=== PATIENT | male | born 1955 | race Caucasian/White ===

== ENCOUNTER 2016-12-08 21:16 | Emergency (ER) | payer OTHER, BC ==
--- NOTE | 2016-12-08 21:28 | PDOC ---
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 Patient is compliant with his pain management doctors and other doctors orders and recommendations. However patient does come in approximately once a month for migraine headaches and exacerbation of his neck and shoulder pain. Patient said the pain is typical. Patient denies any fevers or chills patient denies any nausea vomiting. PAST MEDICAL HISTORY: As per history of present illness PAST SURGICAL HISTORY: no significant history FAMILY HISTORY: no pertinant history SOCIAL HISTORY: Pt lives with family and is disabled MEDICATIONS: reviewed ALLERGIES: As per nursing notes Review of Systems General: No fevers or chills, no weakness, no weight loss HEENT: No change in vision. No sore throat,. No ear pain CardioVascular: No chest pain or shortness of breath Respiratory:No cough, or wheezing. Gastrointestinal: no nausea, vomitting, diarrhea or constipation, No rectal bleeding Genitourinary: No dysuria, hematuria, or frequency Musculoskeletal: Chronic neck, back pain Neurologic: + headache, no vertigo, dizziness or loss of consciousness Psychiatric: nor depression Skin: No rashes or easy bruising Endocrine: no increased thirst or abnormal weight change Allergic: no skin or latex allergy All other systems reviewed and normal Exam: General: Well-nourished well-developed individual, no acute distress HEENT: Throat: Normal, tonsils normal, no erythema or exudate Neck: Supple, no meningeal signs, no lymphadenopathy Eyes::Pupils equal reactive and round, extraocular motion intact Neck and back: pain and spasm on palpation of neck Extremities: Warm, dry, no cyanosis, clubbing, or edema Skin: No rashes Neuro: Alert and oriented x3, nonfocal exam, grossly intact, normal gait Psych: Normal mood and affect Assessment and plan: This is a 61-year-old male with chronic migraines was given Dilaudid in the emergency room with improvement of his symptoms. Patient was discharged home with his who drove him home. Patient will follow-up with his doctors. <Yury Sidhu I - Last Filed: 12/08/16 22:22> - General Chief Complaint: Pain, Acute Stated Complaint: MIGRAINE/SHOULDER PAIN Time Seen by Provider: 12/08/16 21:26 Past History <Thiago Sandoval - Last Filed: 12/08/16 21:34> - Past Medical History Cardiac Disorders: Yes ([place]) Diabetes: Yes GI Disorders: Yes (REFLUX) Hypercholesterolemia: Yes Suicide Attempt (Hx): No - Surgical History Cardiac Surgery: Yes (STENTS X4) Cholecystectomy: Yes - Immunization History Td Vaccination: Yes TDAP Vaccination: Yes Immunization Up to Date: No - Psycho/Social/Smoking Cessation Hx Anxiety: No Suicidal Ideation: No Smoking Status: Yes Smoking History: Current every day smoker Years of Tobacco Use: 30 Have you smoked in the past 12 months: Yes Number of Cigarettes Smoked Daily: 10 Cigars Per Day: 0 'Breaking Loose' booklet given: 09/20/16 Hx Alcohol Use: Yes (SOCIAL) Drug/Substance Use Hx: No Substance Use Type: None Hx Substance Use Treatment: No <Yury Sidhu I - Last Filed: 12/08/16 22:22> - Past Medical History Allergies/Adverse Reactions: Allergies Allergy/AdvReac Type Severity Reaction Status Date / Time prochlorperazine maleate AdvReac Intermediate Rash Verified 09/20/16 22:25 [From Compazine] sumatriptan [From Imitrex] AdvReac Mild Rash Verified 09/20/16 22:25 sumatriptan succinate AdvReac Mild Rash Verified 09/20/16 22:25 [From Imitrex] Home Medications: Ambulatory Orders Aspirin [Aspirin EC] 325 mg PO DAILY 12/29/13 Famotidine [Pepcid -] 20 mg PO HS 12/29/13 Fenofibrate [Fenofibrate -] 160 mg PO DAILY 12/29/13 Gabapentin 400 mg PO 5XD 12/29/13 Metoprolol Tartrate [Lopressor -] 50 mg PO BID 12/29/13 Oxybutynin Chloride 5 mg PO DAILY 12/29/13 Oxycodone HCl/Acetaminophen [Percocet 7.5-500 mg Tablet] 1 - 2 tab PO Q6H Pantoprazole Sodium 40 mg PO DAILY 12/29/13 Rosuvastatin Calcium [Crestor] 40 mg PO HS 12/29/13 Silodosin [Rapaflo] 8 mg PO DAILY 12/29/13 Ranolazine [Ranexa] 1,000 mg PO BID 06/28/14 Metformin HCl [Glucophage] 1,000 mg PO BID 09/18/15 Hyoscyamine Sulfate [Hyoscyamine] 0.125 mg SL BID 11/21/15 Aspirin/Acetaminophen/Caffeine [Excedrin Migraine Caplet] 2 each PO BID Sucralfate Oral Suspension [Carafate *Oral Susp*] 1 gm PO TID 06/26/16 Amitriptyline HCl [Elavil -] 20 mg PO DAILY 12/08/16 *DC/Admit/Observation/Transfer - Attestations Scribe Attestion: 12/08/16 21:35 Documentation prepared by Thiago Sandoval, acting as registered medical assistant for Yury Sidhu MD. <Thiago Sandoval - Last Filed: 12/08/16 21:34> - Discharge Dispostion Admit: No <Yury Sidhu I - Last Filed: 12/08/16 22:22> Diagnosis at time of Disposition: Migraine, Neck pain, musculoskeletal - Discharge Dispostion Disposition: HOME Condition at time of disposition: Stable - Referrals Referrals: Sree Briones MD [Primary Care Provider] - - Patient Instructions Additional Instructions: Return to the emergency department immediately with ANY new, persistent or worsening symptoms. Continue any medications as previously prescribed by your physician. You should follow up with your primary doctor as soon as possible regarding today's emergency department visit. . Please make sure your doctor reviews the results of your emergency evaluation. Thank you for coming to the Emergency Department today for your care. It was a pleasure to see you today. Please note that your evaluation is INCOMPLETE until you follow-up with your doctor.
[2016-12-08] MEDS ORDERED: HYDROmorphone HCL CARPU-JECT 1 MG/1 ML DISP.SYRIN IM ONE (21:29)
[2016-12-08] MEDS ORDERED: HYDROmorphone HCL CARPU-JECT 2 MG/1 ML DISP.SYRIN ONE ×2 (21:30→22:16)
[2016-12-08 21:51] VITALS: BP 174/82; PULSE 76; TEMP 97.8; BMI 41.0
[2016-12-08] MEDS ORDERED: HYDROmorphone HCL CARPU-JECT 1 MG/1 ML DISP.SYRIN IVPUSH ONE (22:17)
== END 2016-12-08 22:35 | disposition home or self-care (01) ==
LOC: FER 21:16
PROC: 3E0233Z Introduction of Anti-inflammatory into Muscle, Percutaneous Approach (ICD-10-PCS; principal; 2016-12-08)
PROC: 3E033GC Introduction of Other Therapeutic Substance into Peripheral Vein, Percutaneous Approach (ICD-10-PCS; 2016-12-08)
PROC: 3E033NZ Introduction of Analgesics, Hypnotics, Sedatives into Peripheral Vein, Percutaneous Approach (ICD-10-PCS; 2016-12-08)
DX: G43.909 Migraine, unspecified, not intractable, without status migrainosus (principal); M54.2 Cervicalgia; M79.1 Myalgia; Z79.82 Long term (current) use of aspirin; Z79.01 Long term (current) use of anticoagulants; I25.2 Old myocardial infarction; K21.9 Gastro-esophageal reflux disease without esophagitis; Z95.5 Presence of coronary angioplasty implant and graft; F17.210 Nicotine dependence, cigarettes, uncomplicated; E78.00 Pure hypercholesterolemia, unspecified
CPT/HCPCS: 99282-25

== ENCOUNTER 2017-01-07 20:26 | Emergency (ER) | payer OTHER, BC ==
--- NOTE | 2017-01-07 20:30 | PDOC ---
History of Present Illness - General Chief Complaint: Pain, Acute Stated Complaint: PAIN-FALL Time Seen by Provider: 01/07/17 20:29 History Source: Patient Exam Limitations: No Limitations - History of Present Illness Initial Comments: 01/07/17 21:03 This is a 61-year-old male who is well-known to me secondary to numerous visits to the emergency room for treatment and management of his Q exacerbation of his chronic neck pain and headaches. 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 Patient is followed by a pain specialist for which his pain is normally well treated and managed but he does come in for exacerbation of his migraines and neck pain from time to time. Patient said he fell approximately one week ago injured his left ribs but they are improved and he is experiencing also some increase in muscle spasms and pain on the right flank and back area. PAST MEDICAL HISTORY: no significant history PAST SURGICAL HISTORY: no significant history FAMILY HISTORY: no pertinant history SOCIAL HISTORY: Pt lives with family and is employed. MEDICATIONS: reviewed ALLERGIES: As per nursing notes Review of Systems General: No fevers or chills, no weakness, no weight loss HEENT: No change in vision. No sore throat,. No ear pain CardioVascular: No chest pain or shortness of breath Respiratory:No cough, or wheezing. Gastrointestinal: no nausea, vomitting, diarrhea or constipation, No rectal bleeding Genitourinary: No dysuria, hematuria, or frequency Musculoskeletal: Neck and back pain as per history of present illness Neurologic: Migraine headache as per history of present illness vertigo, dizziness or loss of consciousness Psychiatric: nor depression Skin: No rashes or easy bruising Endocrine: no increased thirst or abnormal weight change Allergic: no skin or latex allergy All other systems reviewed and normal GENERAL: The patient is awake, alert, and fully oriented, in moderate distress HEAD: Normal with no signs of trauma. Neck: tenderness and spasm of lateral neck muscles and upper shoulder muscles. EYES: Pupils equal, round and reactive to light, extraocular movements intact, sclera anicteric, conjunctiva clear. EXTREMITIES: Normal range of motion, no edema. NEUROLOGICAL: Normal speech,antalgic gait PSYCH: Normal mood, normal affect. SKIN: Warm, Dry, normal turgor, no rashes or lesions noted. Past History - Past Medical History Allergies/Adverse Reactions: Allergies Allergy/AdvReac Type Severity Reaction Status Date / Time prochlorperazine maleate AdvReac Intermediate Rash Verified 09/20/16 22:25 [From Compazine] sumatriptan [From Imitrex] AdvReac Mild Rash Verified 09/20/16 22:25 sumatriptan succinate AdvReac Mild Rash Verified 09/20/16 22:25 [From Imitrex] Home Medications: Ambulatory Orders Aspirin [Aspirin EC] 325 mg PO DAILY 12/29/13 Famotidine [Pepcid -] 20 mg PO HS 12/29/13 Fenofibrate [Fenofibrate -] 160 mg PO DAILY 12/29/13 Gabapentin 400 mg PO 5XD 12/29/13 Metoprolol Tartrate [Lopressor -] 50 mg PO BID 12/29/13 Oxybutynin Chloride 5 mg PO DAILY 12/29/13 Oxycodone HCl/Acetaminophen [Percocet 7.5-500 mg Tablet] 1 - 2 tab PO Q6H Pantoprazole Sodium 40 mg PO DAILY 12/29/13 Rosuvastatin Calcium [Crestor] 40 mg PO HS 12/29/13 Silodosin [Rapaflo] 8 mg PO DAILY 12/29/13 Ranolazine [Ranexa] 1,000 mg PO BID 06/28/14 Metformin HCl [Glucophage] 1,000 mg PO BID 09/18/15 Hyoscyamine Sulfate [Hyoscyamine] 0.125 mg SL BID 11/21/15 Aspirin/Acetaminophen/Caffeine [Excedrin Migraine Caplet] 2 each PO BID Sucralfate Oral Suspension [Carafate *Oral Susp*] 1 gm PO TID 06/26/16 Amitriptyline HCl [Elavil -] 20 mg PO DAILY 12/08/16 Cardiac Disorders: Yes ([place]) Diabetes: Yes GI Disorders: Yes (REFLUX) Hypercholesterolemia: Yes Suicide Attempt (Hx): No - Surgical History Cardiac Surgery: Yes (STENTS X4) Cholecystectomy: Yes - Immunization History Td Vaccination: Yes TDAP Vaccination: Yes Immunization Up to Date: No - Psycho/Social/Smoking Cessation Hx Anxiety: No Suicidal Ideation: No Smoking Status: Yes Smoking History: Current every day smoker Years of Tobacco Use: 30 Have you smoked in the past 12 months: Yes Number of Cigarettes Smoked Daily: 10 Cigars Per Day: 0 'Breaking Loose' booklet given: 09/20/16 Hx Alcohol Use: Yes (SOCIAL) Drug/Substance Use Hx: No Substance Use Type: None Hx Substance Use Treatment: No *DC/Admit/Observation/Transfer Diagnosis at time of Disposition: Migraine, Neck pain, musculoskeletal - Discharge Dispostion Disposition: HOME Condition at time of disposition: Stable Admit: No - Patient Instructions Additional Instructions: Continue all your medications as prescribed. Return to the emergency department immediately with ANY new, persistent or worsening symptoms. Continue any medications as previously prescribed by your physician. You should follow up with your primary doctor as soon as possible regarding today's emergency department visit. . Please make sure your doctor reviews the results of your emergency evaluation. Thank you for coming to the Emergency Department today for your care. It was a pleasure to see you today. Please note that your evaluation is INCOMPLETE until you follow-up with your doctor.
[2017-01-07 20:36] VITALS: BP 155/80; PULSE 74; TEMP 97.8; BMI 41.0
[2017-01-07] MEDS ORDERED: HYDROmorphone HCL CARPU-JECT 1 MG/1 ML DISP.SYRIN IVPUSH ONE (21:01)
[2017-01-07] MEDS ORDERED: HYDROmorphone HCL CARPU-JECT 2 MG/1 ML DISP.SYRIN ONE ×2 (21:02→22:00)
[2017-01-07] MEDS ORDERED: HYDROmorphone HCL CARPU-JECT 1 MG/1 ML DISP.SYRIN IM ONE (21:59)
== END 2017-01-07 22:24 | disposition home or self-care (01) ==
LOC: FER 20:26
PROC: 3E033GC Introduction of Other Therapeutic Substance into Peripheral Vein, Percutaneous Approach (ICD-10-PCS; principal; 2017-01-07)
PROC: 3E033NZ Introduction of Analgesics, Hypnotics, Sedatives into Peripheral Vein, Percutaneous Approach (ICD-10-PCS; 2017-01-07)
PROC: 3E023NZ Introduction of Analgesics, Hypnotics, Sedatives into Muscle, Percutaneous Approach (ICD-10-PCS; 2017-01-07)
DX: M54.2 Cervicalgia (principal); M79.1 Myalgia; G43.909 Migraine, unspecified, not intractable, without status migrainosus; F17.210 Nicotine dependence, cigarettes, uncomplicated; Z95.5 Presence of coronary angioplasty implant and graft; E11.9 Type 2 diabetes mellitus without complications; K21.9 Gastro-esophageal reflux disease without esophagitis; I25.2 Old myocardial infarction
CPT/HCPCS: 96372; 96374; 96375; 99282-25

== ENCOUNTER 2017-02-21 01:17 | Emergency (ER) | payer OTHER, BC ==
--- NOTE | 2017-02-21 01:21 | PDOC ---
History of Present Illness - General Chief Complaint: Migraine Headache Stated Complaint: MIGRAINE Time Seen by Provider: 02/21/17 01:20 History Source: Patient Exam Limitations: No Limitations - History of Present Illness Initial Comments: 02/21/17 01:32 This is a 61-year-old male who comes in complaining of migraine headache. Patient is well-known to me and has long history of migraine headaches. Patient otherwise has a long history of chronic pain issues secondary to his work disability. Patient said migraine is typical of his migraines. He denies any fevers or chills. He denies any change in his vision or neurological complaints. Headache is circumferential and throbbing in nature PAST MEDICAL HISTORY: As per history of present illness PAST SURGICAL HISTORY: no significant history FAMILY HISTORY: no pertinant history SOCIAL HISTORY: Pt lives with family and is on permanent disability MEDICATIONS: reviewed ALLERGIES: As per nursing notes Review of Systems General: No fevers or chills, no weakness, no weight loss HEENT: No change in vision. No sore throat,. No ear pain, migraine headache CardioVascular: No chest pain or shortness of breath Respiratory:No cough, or wheezing. Gastrointestinal: no nausea, vomitting, diarrhea or constipation, No rectal bleeding Genitourinary: No dysuria, hematuria, or frequency Musculoskeletal: No joint or muscle pain or swelling Neurologic: + Migraine headache, vertigo, dizziness or loss of consciousness Psychiatric: nor depression Skin: No rashes or easy bruising Endocrine: no increased thirst or abnormal weight change Allergic: no skin or latex allergy All other systems reviewed and normal GENERAL: The patient is awake, alert, and fully oriented, in no acute distress. HEAD: Normal with no signs of trauma. EYES: Pupils equal, round and reactive to light, extraocular movements intact, sclera anicteric, conjunctiva clear. EXTREMITIES: Normal range of motion, no edema. NEUROLOGICAL: Normal speech, normal gait. PSYCH: Normal mood, normal affect. SKIN: Warm, Dry, normal turgor, no rashes or lesions noted. Assessment and plan: This is a 61-year-old male with migraine headache who is well-known to me and comes in intermittently for pain medication to manage his migraine headaches. Patient given Dilaudid and Benadryl with improvement in his symptoms and discharged home. Past History - Past Medical History Allergies/Adverse Reactions: Allergies Allergy/AdvReac Type Severity Reaction Status Date / Time prochlorperazine maleate AdvReac Intermediate Rash Verified 02/21/17 01:20 [From Compazine] sumatriptan [From Imitrex] AdvReac Mild Rash Verified 02/21/17 01:20 sumatriptan succinate AdvReac Mild Rash Verified 02/21/17 01:20 [From Imitrex] Home Medications: Ambulatory Orders Aspirin [Aspirin EC] 325 mg PO DAILY 12/29/13 Famotidine [Pepcid -] 20 mg PO HS 12/29/13 Fenofibrate [Fenofibrate -] 160 mg PO DAILY 12/29/13 Gabapentin 400 mg PO 5XD 12/29/13 Metoprolol Tartrate [Lopressor -] 50 mg PO BID 12/29/13 Oxybutynin Chloride 5 mg PO DAILY 12/29/13 Oxycodone HCl/Acetaminophen [Percocet 7.5-500 mg Tablet] 1 - 2 tab PO Q6H Pantoprazole Sodium 40 mg PO DAILY 12/29/13 Rosuvastatin Calcium [Crestor] 40 mg PO HS 12/29/13 Silodosin [Rapaflo] 8 mg PO DAILY 12/29/13 Ranolazine [Ranexa] 1,000 mg PO BID 06/28/14 Metformin HCl [Glucophage] 1,000 mg PO BID 09/18/15 Hyoscyamine Sulfate [Hyoscyamine] 0.125 mg SL BID 11/21/15 Aspirin/Acetaminophen/Caffeine [Excedrin Migraine Caplet] 2 each PO BID Sucralfate Oral Suspension [Carafate *Oral Susp*] 1 gm PO TID 06/26/16 Amitriptyline HCl [Elavil -] 20 mg PO DAILY 12/08/16 Cardiac Disorders: Yes ([place]) Diabetes: Yes GI Disorders: Yes (REFLUX) Hypercholesterolemia: Yes Suicide Attempt (Hx): No - Surgical History Cardiac Surgery: Yes (STENTS X4) Cholecystectomy: Yes - Immunization History Td Vaccination: Yes TDAP Vaccination: Yes Immunization Up to Date: No - Psycho/Social/Smoking Cessation Hx Anxiety: No Suicidal Ideation: No Smoking Status: Yes Smoking History: Current every day smoker Years of Tobacco Use: 30 Have you smoked in the past 12 months: Yes Number of Cigarettes Smoked Daily: 10 Cigars Per Day: 0 'Breaking Loose' booklet given: 09/20/16 Hx Alcohol Use: Yes (SOCIAL) Drug/Substance Use Hx: No Substance Use Type: None Hx Substance Use Treatment: No *DC/Admit/Observation/Transfer Diagnosis at time of Disposition: Migraine - Discharge Dispostion Disposition: HOME Condition at time of disposition: Stable Admit: No - Patient Instructions Additional Instructions: Continue all your medications as prescribed Return to the emergency department immediately with ANY new, persistent or worsening symptoms. Continue any medications as previously prescribed by your physician. You should follow up with your primary doctor as soon as possible regarding today's emergency department visit. . Please make sure your doctor reviews the results of your emergency evaluation. Thank you for coming to the Emergency Department today for your care. It was a pleasure to see you today. Please note that your evaluation is INCOMPLETE until you follow-up with your doctor.
[2017-02-21] MEDS ORDERED: HYDROmorphone HCL CARPU-JECT 1 MG/1 ML DISP.SYRIN IM ONE ×2 (01:22→01:39)
[2017-02-21 01:26] VITALS: TEMP 97.6; BMI 40.2
[2017-02-21] MEDS ORDERED: HYDROmorphone HCL CARPU-JECT 2 MG/1 ML DISP.SYRIN ONE ×2 (01:27→01:54)
[2017-02-21 02:20] VITALS: BP 114/58; PULSE 74
== END 2017-02-21 02:27 | disposition home or self-care (01) ==
LOC: FER 01:17
PROC: 3E023GC Introduction of Other Therapeutic Substance into Muscle, Percutaneous Approach (ICD-10-PCS; principal; 2017-02-21)
PROC: 3E023NZ Introduction of Analgesics, Hypnotics, Sedatives into Muscle, Percutaneous Approach (ICD-10-PCS; 2017-02-21)
DX: G43.909 Migraine, unspecified, not intractable, without status migrainosus (principal); E11.9 Type 2 diabetes mellitus without complications; K21.9 Gastro-esophageal reflux disease without esophagitis; E78.00 Pure hypercholesterolemia, unspecified; Z95.5 Presence of coronary angioplasty implant and graft; F17.210 Nicotine dependence, cigarettes, uncomplicated; I25.2 Old myocardial infarction; Z79.82 Long term (current) use of aspirin
CPT/HCPCS: 96372; 99281-25

== ENCOUNTER 2017-04-07 05:50 | Emergency (ER) | payer OTHER, BC ==
[2017-04-07 06:04] VITALS: BP 129/83; PULSE 84; TEMP 97.9; BMI 40.2
[2017-04-07] MEDS ORDERED: HYDROmorphone HCL CARPU-JECT 1 MG/1 ML DISP.SYRIN IM ONE ×2 (06:06→06:42)
[2017-04-07] MEDS ORDERED: HYDROmorphone HCL CARPU-JECT 2 MG/1 ML DISP.SYRIN ONE ×2 (06:06→06:45)
--- NOTE | 2017-04-07 06:12 | PDOC ---
History of Present Illness - General Chief Complaint: Pain, Acute Stated Complaint: LT NECK PAIN/MIGRAINE Time Seen by Provider: 04/07/17 06:00 History Source: Patient Exam Limitations: No Limitations - History of Present Illness Initial Comments: 04/07/17 06:05 This is a 61-year-old male who comes in complaining of headache and pain in his neck and shoulder. 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 Patient is on full disability. His typical head and neck pain that he comes in for from time to time. Patient is otherwise compliant with his treatment and medication regime but occasionally does have exacerbation of his chronic pain. PAST MEDICAL HISTORY: Disability as per history of present illness PAST SURGICAL HISTORY: no significant history FAMILY HISTORY: no pertinant history SOCIAL HISTORY: Pt lives with family and is employed. MEDICATIONS: reviewed ALLERGIES: As per nursing notes Review of Systems General: No fevers or chills, no weakness, no weight loss HEENT: No change in vision. No sore throat,. No ear pain CardioVascular: No chest pain or shortness of breath Respiratory:No cough, or wheezing. Gastrointestinal: no nausea, vomitting, diarrhea or constipation, No rectal bleeding Genitourinary: No dysuria, hematuria, or frequency Musculoskeletal: Head and neck pain as per history of present illness Neurologic: No headache, vertigo, dizziness or loss of consciousness Psychiatric: nor depression Skin: No rashes or easy bruising Endocrine: no increased thirst or abnormal weight change Allergic: no skin or latex allergy All other systems reviewed and normal GENERAL: The patient is awake, alert, and fully oriented, in no acute distress. HEAD: Normal with no signs of trauma. There is tenderness in spasm on palpation of the neck neurovascular is intact EYES: Pupils equal, round and reactive to light, extraocular movements intact, sclera anicteric, conjunctiva clear. EXTREMITIES: Normal range of motion, no edema. NEUROLOGICAL: Normal speech, normal gait. PSYCH: Normal mood, normal affect. SKIN: Warm, Dry, normal turgor, no rashes or lesions noted. Past History - Past Medical History Allergies/Adverse Reactions: Allergies Allergy/AdvReac Type Severity Reaction Status Date / Time prochlorperazine maleate AdvReac Intermediate Rash Verified 02/21/17 01:20 [From Compazine] sumatriptan [From Imitrex] AdvReac Mild Rash Verified 02/21/17 01:20 sumatriptan succinate AdvReac Mild Rash Verified 02/21/17 01:20 [From Imitrex] Home Medications: Ambulatory Orders Aspirin [Aspirin EC] 325 mg PO DAILY 12/29/13 Famotidine [Pepcid -] 20 mg PO HS 12/29/13 Fenofibrate [Fenofibrate -] 160 mg PO DAILY 12/29/13 Gabapentin 400 mg PO 5XD 12/29/13 Metoprolol Tartrate [Lopressor -] 50 mg PO BID 12/29/13 Oxybutynin Chloride 5 mg PO DAILY 12/29/13 Oxycodone HCl/Acetaminophen [Percocet 7.5-500 mg Tablet] 1 - 2 tab PO Q6H Pantoprazole Sodium 40 mg PO DAILY 12/29/13 Rosuvastatin Calcium [Crestor] 40 mg PO HS 12/29/13 Silodosin [Rapaflo] 8 mg PO DAILY 12/29/13 Ranolazine [Ranexa] 1,000 mg PO BID 06/28/14 Metformin HCl [Glucophage] 1,000 mg PO BID 09/18/15 Hyoscyamine Sulfate [Hyoscyamine] 0.125 mg SL BID 11/21/15 Aspirin/Acetaminophen/Caffeine [Excedrin Migraine Caplet] 2 each PO BID Sucralfate Oral Suspension [Carafate *Oral Susp*] 1 gm PO TID 06/26/16 Amitriptyline HCl [Elavil -] 20 mg PO DAILY 12/08/16 Cardiac Disorders: Yes ([place]) Diabetes: Yes GI Disorders: Yes (REFLUX) Hypercholesterolemia: Yes Suicide Attempt (Hx): No - Surgical History Cardiac Surgery: Yes (STENTS X4) Cholecystectomy: Yes - Immunization History Td Vaccination: Yes TDAP Vaccination: Yes Immunization Up to Date: No - Psycho/Social/Smoking Cessation Hx Anxiety: No Suicidal Ideation: No Smoking Status: Yes Smoking History: Current every day smoker Years of Tobacco Use: 30 Have you smoked in the past 12 months: Yes Number of Cigarettes Smoked Daily: 10 Cigars Per Day: 0 Information on smoking cessation initiated: Yes 'Breaking Loose' booklet given: 09/20/16 Hx Alcohol Use: Yes (SOCIAL) Drug/Substance Use Hx: No Substance Use Type: None Hx Substance Use Treatment: No *Physical Exam - Vital Signs Last Vital Signs Temp Pulse Resp BP Pulse Ox 97.9 F 84 16 129/83 100 04/07/17 06:02 04/07/17 06:02 04/07/17 06:02 04/07/17 06:02 04/07/17 06:02 *DC/Admit/Observation/Transfer Diagnosis at time of Disposition: Neck pain, musculoskeletal - Discharge Dispostion Disposition: HOME Condition at time of disposition: Stable Admit: No - Patient Instructions Additional Instructions: Continue to take all your medications as prescribed and follow up with your doctor. Return to the emergency department immediately with ANY new, persistent or worsening symptoms. Continue any medications as previously prescribed by your physician. You should follow up with your primary doctor as soon as possible regarding today's emergency department visit. . Please make sure your doctor reviews the results of your emergency evaluation. Thank you for coming to the Emergency Department today for your care. It was a pleasure to see you today. Please note that your evaluation is INCOMPLETE until you follow-up with your doctor.
== END 2017-04-07 07:32 | disposition home or self-care (01) ==
LOC: FER 05:50
PROC: 3E0233Z Introduction of Anti-inflammatory into Muscle, Percutaneous Approach (ICD-10-PCS; principal; 2017-04-07)
PROC: 3E023GC Introduction of Other Therapeutic Substance into Muscle, Percutaneous Approach (ICD-10-PCS; 2017-04-07)
DX: M54.2 Cervicalgia (principal); M79.1 Myalgia; F17.210 Nicotine dependence, cigarettes, uncomplicated; K21.9 Gastro-esophageal reflux disease without esophagitis; E11.9 Type 2 diabetes mellitus without complications; I25.2 Old myocardial infarction; Z95.5 Presence of coronary angioplasty implant and graft; E78.00 Pure hypercholesterolemia, unspecified
CPT/HCPCS: 99282-25

== ENCOUNTER 2017-06-12 00:06 | Emergency (ER) | payer OTHER, BC ==
[2017-06-12 00:15] VITALS: PULSE 70; TEMP 98.5; BMI 38.2
[2017-06-12] MEDS ORDERED: HYDROmorphone HCL CARPU-JECT 2 MG/1 ML DISP.SYRIN IM ONE ×2 (00:21→01:54)
[2017-06-12] MEDS ORDERED: HYDROmorphone HCL CARPU-JECT 2 MG/1 ML DISP.SYRIN ONE ×3 (00:22→01:55)
--- NOTE | 2017-06-12 00:31 | PDOC ---
History of Present Illness - General Chief Complaint: Pain, Acute Stated Complaint: MIGRAINE, NECK PAIN Time Seen by Provider: 06/12/17 00:10 History Source: Patient Exam Limitations: No Limitations - History of Present Illness Initial Comments: 06/12/17 00:26 61 yo M with h/o HTN DM chronic neck pain from prior injury, chronic back pain followed by DR Briones pain management here wtih exacerbation of his chronic pain. pt very well known to department and his records have been reveiwed. pt states he always has pain but got acutely worse this evening. no new numbness or weakness. does get paresthesia down his left arm and up his left side of his face. no f/c no new trauma . takes mediation at home including narcotics and nuerontin no relief. no relief in past with steroids, allergy to many medications. Past History - Past Medical History Allergies/Adverse Reactions: Allergies Allergy/AdvReac Type Severity Reaction Status Date / Time prochlorperazine maleate AdvReac Intermediate Rash Verified 06/12/17 00:09 [From Compazine] sumatriptan [From Imitrex] AdvReac Mild Rash Verified 06/12/17 00:09 sumatriptan succinate AdvReac Mild Rash Verified 06/12/17 00:09 [From Imitrex] Home Medications: Ambulatory Orders Aspirin [Aspirin EC] 325 mg PO DAILY 12/29/13 Famotidine [Pepcid -] 20 mg PO HS 12/29/13 Fenofibrate [Fenofibrate -] 160 mg PO DAILY 12/29/13 Gabapentin 400 mg PO 5XD 12/29/13 Metoprolol Tartrate [Lopressor -] 50 mg PO BID 12/29/13 Oxybutynin Chloride 5 mg PO DAILY 12/29/13 Oxycodone HCl/Acetaminophen [Percocet 7.5-500 mg Tablet] 1 - 2 tab PO Q6H Pantoprazole Sodium 40 mg PO DAILY 12/29/13 Rosuvastatin Calcium [Crestor] 40 mg PO HS 12/29/13 Silodosin [Rapaflo] 8 mg PO DAILY 12/29/13 Ranolazine [Ranexa] 1,000 mg PO BID 06/28/14 Metformin HCl [Glucophage] 1,000 mg PO BID 09/18/15 Hyoscyamine Sulfate [Hyoscyamine] 0.125 mg SL BID 11/21/15 Aspirin/Acetaminophen/Caffeine [Excedrin Migraine Caplet] 2 each PO BID Sucralfate Oral Suspension [Carafate *Oral Susp*] 1 gm PO TID 06/26/16 Amitriptyline HCl [Elavil -] 20 mg PO DAILY 12/08/16 Cardiac Disorders: Yes ([place]) Diabetes: Yes GI Disorders: Yes ([place]) Hypercholesterolemia: Yes Suicide Attempt (Hx): No - Surgical History Cardiac Surgery: Yes (STENTS X4) Cholecystectomy: Yes - Immunization History Td Vaccination: Yes TDAP Vaccination: Yes Immunization Up to Date: No - Psycho/Social/Smoking Cessation Hx Anxiety: No Suicidal Ideation: No Smoking Status: Yes Smoking History: Current every day smoker Years of Tobacco Use: 30 Have you smoked in the past 12 months: Yes Number of Cigarettes Smoked Daily: 10 Cigars Per Day: 0 Information on smoking cessation initiated: Yes 'Breaking Loose' booklet given: 09/20/16 Hx Alcohol Use: No Drug/Substance Use Hx: No Substance Use Type: None Hx Substance Use Treatment: No Review of Systems - Review of Systems Constitutional: No: Chills, Diaphoresis, Fever HEENTM: No: Eye Pain Respiratory: No: Cough, Orthopnea Cardiac (ROS): No: Chest Pain, Edema, Irregular Heart Rate : No: Burning, Dysuria, Discharge Musculoskeletal: Yes: Back Pain, Neck Pain Integumentary: No: Bruising, Change in Color Neurological: No: Headache, Numbness Hematologic/Lymphatic: No: Anemia, Blood Clots All Other Systems: Reviewed and Negative *Physical Exam - Vital Signs Last Vital Signs Temp Pulse Resp BP Pulse Ox 98.5 F 70 18 158/77 99 06/12/17 00:11 06/12/17 00:11 06/12/17 00:11 06/12/17 00:06/12/17 00:11 - Physical Exam General Appearance: Yes: Nourished, Appropriately Dressed Neck: positive: Trachea midline, Other (paraspinal left latera trapeziaql m spasm and pain to palp.). negative: Tender midline Respiratory/Chest: positive: Lungs Clear, Normal Breath Sounds. negative: Chest Tender Cardiovascular: positive: Regular Rhythm, Regular Rate, S1, S2. negative: Edema , JVD, Murmur Gastrointestinal/Abdominal: positive: Normal Bowel Sounds, Flat, Soft. negative : Tender Musculoskeletal: positive: Normal Inspection. negative: CVA Tenderness Extremity: positive: Normal Capillary Refill, Normal Inspection Integumentary: positive: Normal Color, Dry, Warm Neurologic: positive: dryerman/woman II-XII NML intact, Fully Oriented, Alert, Normal Mood/ Affect, Motor Strength 5/5, Other (bilat upper extremities 5/5 sensation intact. med/ ulnar rad n. intact bilat lower ext 5/5/) Medical Decision Making - Medical Decision Making 06/12/17 00:31 61 yo M with h/o chronic pain, her with exacerbation of his pain, unknon trigger. normal nuerological exam sensation intact. plan pain control, and tiffany dc home with follow up with pain management doctor. *DC/Admit/Observation/Transfer Diagnosis at time of Disposition: Neck pain, musculoskeletal - Discharge Dispostion Disposition: HOME Condition at time of disposition: Improved Admit: No - Patient Instructions Printed Discharge Instructions: DI for Cervical Radiculopathy Additional Instructions: you need to follow up with your primary doctor and your pain management doctor as scheduled. return for worsening symptoms. numbness weakness or any concerns. call tomorrow to schedule followup. you should continue your current pain medication as prescribed by your doctor.
[2017-06-12 02:06] VITALS: BP 135/63
== END 2017-06-12 02:06 | disposition home or self-care (01) ==
LOC: FER 00:06
PROC: 3E023NZ Introduction of Analgesics, Hypnotics, Sedatives into Muscle, Percutaneous Approach (ICD-10-PCS; principal; 2017-06-12)
PROC: 3E023GC Introduction of Other Therapeutic Substance into Muscle, Percutaneous Approach (ICD-10-PCS; 2017-06-12)
DX: M54.12 Radiculopathy, cervical region (principal); M54.9 Dorsalgia, unspecified; G89.29 Other chronic pain; I10 Essential (primary) hypertension; I25.2 Old myocardial infarction; E11.9 Type 2 diabetes mellitus without complications; E78.00 Pure hypercholesterolemia, unspecified; K21.9 Gastro-esophageal reflux disease without esophagitis; R20.2 Paresthesia of skin; F17.210 Nicotine dependence, cigarettes, uncomplicated; Z88.8 Allergy status to other drugs, medicaments and biological substances; Z79.82 Long term (current) use of aspirin; Z79.84 Long term (current) use of oral hypoglycemic drugs; Z95.5 Presence of coronary angioplasty implant and graft
CPT/HCPCS: 99281-25

== ENCOUNTER 2017-07-15 21:06 | Emergency (ER) | payer OTHER, BC ==
[2017-07-15 21:09] VITALS: BP 160/75; PULSE 70; TEMP 98; BMI 26.4
[2017-07-15] MEDS ORDERED: HYDROmorphone HCL CARPU-JECT 2 MG/1 ML DISP.SYRIN IVPUSH ONE (21:37)
--- NOTE | 2017-07-15 21:40 | PDOC ---
History of Present Illness - General History Source: Patient Exam Limitations: No Limitations - History of Present Illness Initial Comments: 07/15/17 22:12 This is a 61-year-old male, with a significant past medical history of HTN and DM, who comes in complaining of headache and left-sided neck pain and shoulder pain. 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 Pt states that the pain shoots up his neck, into his face causing him to develop a headache, and down his left shoulder. He denies having any other symptoms or injuries. <Mayda Patricia - Last Filed: 07/15/17 22:12> <Veena Coley - Last Filed: 07/15/17 23:55> - General Chief Complaint: Chronic pain Stated Complaint: PAIN Past History <Mayda Patricia - Last Filed: 07/15/17 22:12> - Past Medical History Cardiac Disorders: Yes ([place]) Diabetes: Yes GI Disorders: Yes ([place]) Hypercholesterolemia: Yes Suicide Attempt (Hx): No - Surgical History Cardiac Surgery: Yes (STENTS X4) Cholecystectomy: Yes - Immunization History Td Vaccination: Yes TDAP Vaccination: Yes Immunization Up to Date: No - Psycho/Social/Smoking Cessation Hx Anxiety: No Suicidal Ideation: No Smoking Status: Yes Smoking History: Current every day smoker Years of Tobacco Use: 30 Have you smoked in the past 12 months: Yes Number of Cigarettes Smoked Daily: 20 Cigars Per Day: 0 Information on smoking cessation initiated: Yes 'Breaking Loose' booklet given: 07/15/17 Hx Alcohol Use: No Drug/Substance Use Hx: No Substance Use Type: None Hx Substance Use Treatment: No <Veena Coley - Last Filed: 07/15/17 23:55> - Past Medical History Allergies/Adverse Reactions: Allergies Allergy/AdvReac Type Severity Reaction Status Date / Time prochlorperazine maleate AdvReac Intermediate Rash Verified 06/12/17 00:09 [From Compazine] sumatriptan [From Imitrex] AdvReac Mild Rash Verified 06/12/17 00:09 sumatriptan succinate AdvReac Mild Rash Verified 06/12/17 00:09 [From Imitrex] Home Medications: Ambulatory Orders Aspirin [Aspirin EC] 325 mg PO DAILY 12/29/13 Famotidine [Pepcid -] 20 mg PO HS 12/29/13 Fenofibrate [Fenofibrate -] 160 mg PO DAILY 12/29/13 Gabapentin 400 mg PO 5XD 12/29/13 Metoprolol Tartrate [Lopressor -] 50 mg PO BID 12/29/13 Oxybutynin Chloride 5 mg PO DAILY 12/29/13 Oxycodone HCl/Acetaminophen [Percocet 7.5-500 mg Tablet] 1 - 2 tab PO Q6H Pantoprazole Sodium 40 mg PO DAILY 12/29/13 Rosuvastatin Calcium [Crestor] 40 mg PO HS 12/29/13 Silodosin [Rapaflo] 8 mg PO DAILY 12/29/13 Ranolazine [Ranexa] 1,000 mg PO BID 06/28/14 Metformin HCl [Glucophage] 1,000 mg PO BID 09/18/15 Hyoscyamine Sulfate [Hyoscyamine] 0.125 mg SL BID 11/21/15 Aspirin/Acetaminophen/Caffeine [Excedrin Migraine Caplet] 2 each PO BID Sucralfate Oral Suspension [Carafate *Oral Susp*] 1 gm PO TID 06/26/16 Amitriptyline HCl [Elavil -] 10 mg PO BID 12/08/16 Review of Systems - Review of Systems Able to Perform ROS?: Yes Comments:: 07/15/17 22:13 CONSTITUTIONAL: Absent: fever, chills, diaphoresis, generalized weakness, malaise, loss of appetite HEENT: Present: left-sided neck pain, left shoulder pain Absent: rhinorrhea, nasal congestion, throat pain, throat swelling, difficulty swallowing, mouth swelling, ear pain, eye pain, visual Changes CARDIOVASCULAR: Absent: chest pain, syncope, palpitations, irregular heart rate, lightheadedness , peripheral edema RESPIRATORY: Absent: cough, shortness of breath, dyspnea with exertion, orthopnea, wheezing, stridor, hemoptysis GASTROINTESTINAL: Absent: abdominal pain, abdominal distension, nausea, vomiting, diarrhea, constipation, melena, hematochezia GENITOURINARY: Absent: dysuria, frequency, urgency, hesitancy, hematuria, flank pain, genital pain MUSCULOSKELETAL: Absent: arthralgia, joint swelling SKIN: Absent: rash, itching, pallor HEMATOLOGIC/IMMUNOLOGIC: Absent: easy bleeding, easy bruising, lymphadenopathy, frequent infections ENDOCRINE: Absent: unexplained weight gain, unexplained weight loss, heat intolerance, cold intolerance NEUROLOGIC: Absent: headache, focal weakness or paresthesias, dizziness, unsteady gait, seizure, mental status changes, bladder or bowel incontinence PSYCHIATRIC: Absent: anxiety, depression, suicidal or homicidal ideation, hallucinations. <Mayda Patricia - Last Filed: 07/15/17 22:12> *Physical Exam - Vital Signs Last Vital Signs Temp Pulse Resp BP Pulse Ox 98 F 70 16 160/75 100 07/15/17 21:07 07/15/17 21:07 07/15/17 21:07 07/15/17 21:07 07/15/17 21:07 - Physical Exam Comments: 07/15/17 22:16 GENERAL: Well developed, well nourished. Awake and alert. No acute distress. (+)Obese HEENT: Normocephalic, atraumatic. PERRLA, EOMI. No conjunctival pallor. Sclera are non- icteric. Moist mucous membranes. Oropharynx is clear. NECK: Full ROM. No JVD. Carotid pulses 2+ and symmetric, without bruits. No thyromegaly. No lymphadenopathy. CARDIOVASCULAR: Regular rate and rhythm. No murmurs, rubs, or gallops. Distal pulses are 2+ and symmetric. PULMONARY: No evidence of respiratory distress. Lungs clear to auscultation bilaterally. No wheezing, rales or rhonchi. ABDOMINAL: Soft. Non-tender. Non-distended. No rebound or guarding. No organomegaly. Normoactive bowel sounds. MUSCULOSKELETAL Normal range of motion at all joints. No bony deformities or tenderness. No CVA tenderness. EXTREMITIES: No cyanosis. No clubbing. No edema. No calf tenderness. SKIN: Warm and dry. Normal capillary refill. No rashes. No jaundice. NEUROLOGICAL: Alert, awake, appropriate. PSYCHIATRIC: Cooperative. Good eye contact. Appropriate mood and affect. <Mayda Patricia - Last Filed: 07/15/17 22:12> - Vital Signs Last Vital Signs Temp Pulse Resp BP Pulse Ox 98 F 70 16 160/75 100 07/15/17 21:07 07/15/17 21:07 07/15/17 21:07 07/15/17 21:07 07/15/17 21:07 <Veena Coley - Last Filed: 07/15/17 23:55> ED Treatment Course - Medications Given in the ED: ED Medications Discontinued Medications Generic Name Dose Route Start Last Admin Trade Name Héctor PRN Reason Stop Dose Admin Diphenhydramine HCl 50 mg 07/15/17 21:38 07/15/17 21:40 Benadryl Injection - IM 07/15/17 21:39 50 mg ONCE ONE Administration Hydromorphone HCl 6 mg 07/15/17 21:37 07/15/17 21:30 Dilaudid Injection - IVPUSH 07/15/17 21:38 6 mg ONCE ONE Administration <Mayda Patricia - Last Filed: 07/15/17 22:12> Medical Decision Making - Medical Decision Making 07/15/17 23:47 Pt comes with chronic pain and has been getting dilaudid and benadryl here for years. We had a long conversation about addiction and I told the patient that after today I will never treat him with 6mg dilaudid and 0mg benadryl; rather 2mg dilaudid and 25mg benadryl -repeated once at most. Pt injured himself 17 years ago and has had spinal procedures, surgeries; trigger point injections etc. Pt will be referred back to his PMD. Pt's exam is unremarkable and his vitals are normal. BP slight elevation, likely due to withdrawal effect of narcotics, as he has narcotic use regular basis. [employer] program online reveals p[t gets 120tabs of 7.5mg percocets monthly for several months. <Veena Coley - Last Filed: 07/15/17 23:55> *DC/Admit/Observation/Transfer - Attestations Scribe Attestion: 07/15/17 22:17 Documentation prepared by Mayda Patricia, acting as medical staff assistant for Veena Coley MD. <Mayda Patricia - Last Filed: 07/15/17 22:12> - Discharge Dispostion Admit: No <Veena Coley - Last Filed: 07/15/17 23:55> Diagnosis at time of Disposition: Narcotic addiction, Chronic pain - Discharge Dispostion Disposition: HOME Condition at time of disposition: Stable - Patient Instructions Printed Discharge Instructions: DI for Opioid Addiction, DI for Chronic Neck Pain
[2017-07-15] MEDS ORDERED: HYDROmorphone HCL CARPU-JECT 2 MG/1 ML DISP.SYRIN ONE (21:42)
== END 2017-07-15 22:12 | disposition home or self-care (01) ==
LOC: FER 21:06
PROC: 3E023GC Introduction of Other Therapeutic Substance into Muscle, Percutaneous Approach (ICD-10-PCS; principal; 2017-07-15)
PROC: 3E033NZ Introduction of Analgesics, Hypnotics, Sedatives into Peripheral Vein, Percutaneous Approach (ICD-10-PCS; 2017-07-15)
DX: F19.20 Other psychoactive substance dependence, uncomplicated (principal); G89.29 Other chronic pain; F17.210 Nicotine dependence, cigarettes, uncomplicated; Z95.5 Presence of coronary angioplasty implant and graft; E11.9 Type 2 diabetes mellitus without complications; K21.9 Gastro-esophageal reflux disease without esophagitis; E78.00 Pure hypercholesterolemia, unspecified
CPT/HCPCS: 99282-25

== ENCOUNTER 2017-11-26 21:15 | Emergency (ER) | payer BC, OTHER ==
[2017-11-26 21:43] VITALS: TEMP 98.2; BMI 26.2
[2017-11-26] MEDS ORDERED: HYDROmorphone HCL CARPU-JECT 2 MG/1 ML DISP.SYRIN IM ONE ×2 (22:51→23:59)
[2017-11-26] MEDS ORDERED: HYDROmorphone HCL CARPU-JECT 2 MG/1 ML DISP.SYRIN ONE (23:07)
[2017-11-27] MEDS ORDERED: HYDROmorphone HCL CARPU-JECT 2 MG/1 ML DISP.SYRIN ONE (00:03)
--- NOTE | 2017-11-27 00:17 | PDOC ---
History of Present Illness - General Chief Complaint: Migraine Headache Stated Complaint: MIGRAINE & NECK PAIN Time Seen by Provider: 11/26/17 22:09 - History of Present Illness Initial Comments: 12/01/17 08:04 Chief complaint: Headache and neck pain History of present illness: Patient pain management of chronic headaches, neck pain, thought to be musculoskeletal. Maintained at home on Percocet. Periodic breakthroughs requiring emergency room visits. This is his usual pain today, left lateral and posterior neck and left trapezius area, left occiput. Review of systems: No injury or fever/infectious illness. No chest pain, shortness of breath, abdominal pain, nausea, vomiting, diarrhea, visual or focal neurologic symptoms, unsteadiness of gait. Past medical history: Patient has significant obesity, high blood pressure, diabetes, and coronary artery disease Social/family history: Chronic pain as noted above, narcotic dependence. Physical exam: Alert and oriented, mild distress due to head and neck pain, cooperative Afebrile, vital signs normal PERRLA, fundi benign, ENT clear Neck supple without bruit mass or nodes. There is spasm and tenderness of the left sternomastoid muscles and trapezius muscle. Chest clear CV regular without murmur rub or gallop Abdomen benign Skin clear, no rash, adequate turgor and wet mucous membranes Neurological C2 to 12 intact. Strength full and symmetric. No focal sensory or motor deficits. Gait stable and unimpaired Impression: Chronic musculoskeletal pain, with breakthrough. Plan: Analgesics, observation. Pain management as usual. Past History - Past Medical History Allergies/Adverse Reactions: Allergies Allergy/AdvReac Type Severity Reaction Status Date / Time prochlorperazine maleate AdvReac Intermediate Rash Verified 06/12/17 00:09 [From Compazine] sumatriptan [From Imitrex] AdvReac Mild Rash Verified 06/12/17 00:09 sumatriptan succinate AdvReac Mild Rash Verified 06/12/17 00:09 [From Imitrex] Home Medications: Ambulatory Orders Aspirin [Aspirin EC] 325 mg PO DAILY 12/29/13 Famotidine [Pepcid -] 20 mg PO HS 12/29/13 Fenofibrate [Fenofibrate -] 160 mg PO DAILY 12/29/13 Gabapentin 400 mg PO 5XD 12/29/13 Metoprolol Tartrate [Lopressor -] 50 mg PO BID 12/29/13 Oxybutynin Chloride 5 mg PO DAILY 12/29/13 Oxycodone HCl/Acetaminophen [Percocet 7.5-500 mg Tablet] 1 - 2 tab PO Q6H Pantoprazole Sodium 40 mg PO DAILY 12/29/13 Rosuvastatin Calcium [Crestor] 40 mg PO HS 12/29/13 Silodosin [Rapaflo] 8 mg PO DAILY 12/29/13 Ranolazine [Ranexa] 1,000 mg PO BID 06/28/14 Metformin HCl [Glucophage] 1,000 mg PO BID 09/18/15 Hyoscyamine Sulfate [Hyoscyamine] 0.125 mg SL BID 11/21/15 Aspirin/Acetaminophen/Caffeine [Excedrin Migraine Caplet] 2 each PO BID Sucralfate Oral Suspension [Carafate *Oral Susp*] 1 gm PO TID 06/26/16 Amitriptyline HCl [Elavil -] 10 mg PO BID 12/08/16 Fludrocortisone Acetate [Florinef -] 0.1 mg PO DAILY 11/26/17 Lipase/Protease/Amylase [Zenpep Dr 20,000 Units Capsule] 1 each PO TID 11/26/17 Sertraline HCl [Zoloft -] 50 mg PO DAILY 11/26/17 Cardiac Disorders: Yes ([place]) COPD: No Diabetes: Yes GI Disorders: Yes ([place]) Hypercholesterolemia: Yes - Surgical History Cardiac Surgery: Yes (STENTS X4) Cholecystectomy: Yes - Immunization History Td Vaccination: Yes TDAP Vaccination: Yes Immunization Up to Date: No - Suicide/Smoking/Psychosocial Hx Smoking Status: Yes Smoking History: Current every day smoker Years of Tobacco Use: 30 Have you smoked in the past 12 months: Yes Number of Cigarettes Smoked Daily: 20 Cigars Per Day: 0 Information on smoking cessation initiated: Yes 'Breaking Loose' booklet given: 07/15/17 Hx Alcohol Use: Yes Drug/Substance Use Hx: No Substance Use Type: None Hx Substance Use Treatment: No *Physical Exam - Vital Signs Last Vital Signs Temp Pulse Resp BP Pulse Ox 98.2 F 60 18 140/65 98 11/26/17 21:30 11/26/17 21:30 11/26/17 21:30 11/26/17 21:30 11/26/17 21:30 ED Treatment Course - Medications Given in the ED: ED Medications Discontinued Medications Generic Name Dose Route Start Last Admin Trade Name Héctor PRN Reason Stop Dose Admin Diphenhydramine HCl 50 mg 11/26/17 22:52 11/26/17 23:14 Benadryl Injection - IM 11/26/17 22:53 50 mg ONCE ONE Administration Hydromorphone HCl 6 mg 11/26/17 22:51 11/26/17 23:14 Dilaudid Injection - IM 11/26/17 22:52 6 mg ONCE ONE Administration Hydromorphone HCl 2 mg 11/26/17 23:59 11/27/17 00:06 Dilaudid Injection - IM 11/27/17 00:00 2 mg ONCE ONE Administration Medical Decision Making - Medical Decision Making 12/01/17 08:08 Patient much improved after medication. Fully alert, less pain and spasm. Fully ambulatory and in no significant pain or other distress upon discharge with his to follow-up as needed with his pain management physician. *DC/Admit/Observation/Transfer Diagnosis at time of Disposition: Neck pain, musculoskeletal - Discharge Dispostion Disposition: HOME Condition at time of disposition: Improved Admit: No - Referrals Referrals: Sree Briones MD [Primary Care Provider] - - Patient Instructions Printed Discharge Instructions: DI for Musculoskeletal Pain - Post Discharge Activity
[2017-11-27 00:27] VITALS: BP 132/78; PULSE 72
== END 2017-11-27 00:39 | disposition home or self-care (01) ==
LOC: FER 21:15
PROC: 3E023GC Introduction of Other Therapeutic Substance into Muscle, Percutaneous Approach (ICD-10-PCS; principal; 2017-11-26)
PROC: 3E023NZ Introduction of Analgesics, Hypnotics, Sedatives into Muscle, Percutaneous Approach (ICD-10-PCS; 2017-11-26)
DX: M54.2 Cervicalgia (principal); M79.1 Myalgia; F17.210 Nicotine dependence, cigarettes, uncomplicated; E11.9 Type 2 diabetes mellitus without complications; I25.2 Old myocardial infarction; K21.9 Gastro-esophageal reflux disease without esophagitis; E78.00 Pure hypercholesterolemia, unspecified; Z95.5 Presence of coronary angioplasty implant and graft
CPT/HCPCS: 99282-25

== ENCOUNTER 2017-12-22 21:18 | Emergency (ER) | payer OTHER, BC ==
--- NOTE | 2017-12-22 21:28 | PDOC ---
History of Present Illness - General Chief Complaint: Pain Stated Complaint: PAIN Time Seen by Provider: 12/22/17 21:20 - History of Present Illness Initial Comments: This 62-year-old man with a history of chronic migraine, chronic neck pain ( history of cervical spine fusion surgery), NIDDM, GERD, HTN, history of [place] with stent placement presents with a several hour history of left-sided headache/ neck pain typical of his usual migraine pattern. Patient denies any recent fever/chills, shortness of breath, chest pain or unusual abdominal pain ( patient has had chronic mild abdominal pain, currently being evaluated by his physician). He notes mild nausea today, which he sometimes experiences with his migraine headache. The patient has had no relief of his pain despite taking his usual pain/headache medications Past History - Past Medical History Allergies/Adverse Reactions: Allergies Allergy/AdvReac Type Severity Reaction Status Date / Time prochlorperazine maleate AdvReac Intermediate Rash Verified 06/12/17 00:09 [From Compazine] sumatriptan [From Imitrex] AdvReac Mild Rash Verified 06/12/17 00:09 sumatriptan succinate AdvReac Mild Rash Verified 06/12/17 00:09 [From Imitrex] Home Medications: Ambulatory Orders Aspirin [Aspirin EC] 325 mg PO DAILY 12/29/13 Famotidine [Pepcid -] 20 mg PO HS 12/29/13 Fenofibrate [Fenofibrate -] 160 mg PO DAILY 12/29/13 Gabapentin 400 mg PO 5XD 12/29/13 Metoprolol Tartrate [Lopressor -] 50 mg PO BID 12/29/13 Oxybutynin Chloride 5 mg PO DAILY 12/29/13 Pantoprazole Sodium 40 mg PO DAILY 12/29/13 Rosuvastatin Calcium [Crestor] 40 mg PO HS 12/29/13 Silodosin [Rapaflo] 8 mg PO DAILY 12/29/13 Ranolazine [Ranexa] 1,000 mg PO BID 06/28/14 Metformin HCl [Glucophage] 1,000 mg PO BID 09/18/15 Aspirin/Acetaminophen/Caffeine [Excedrin Migraine Caplet] 2 each PO BID Sucralfate Oral Suspension [Carafate *Oral Susp*] 1 gm PO TID 06/26/16 Amitriptyline HCl [Elavil -] 10 mg PO BID PRN 12/08/16 Sertraline HCl [Zoloft -] 50 mg PO DAILY 11/26/17 Oxycodone HCl/Acetaminophen [Endocet 7.5-325 mg Tablet] 1 - 2 each PO Q6H PRN Cardiac Disorders: Yes ([place]) COPD: No Diabetes: Yes GI Disorders: Yes ([place]) Hypercholesterolemia: Yes - Surgical History Cardiac Surgery: Yes (STENTS X4) Cholecystectomy: Yes - Immunization History Td Vaccination: Yes TDAP Vaccination: Yes Immunization Up to Date: No - Suicide/Smoking/Psychosocial Hx Smoking Status: Yes Smoking History: Current every day smoker Years of Tobacco Use: 30 Have you smoked in the past 12 months: Yes Number of Cigarettes Smoked Daily: 20 Cigars Per Day: 0 'Breaking Loose' booklet given: 07/15/17 Hx Alcohol Use: Yes Drug/Substance Use Hx: No Substance Use Type: None Hx Substance Use Treatment: No Review of Systems - Review of Systems Able to Perform ROS?: Yes Comments:: 12 point review of systems is negative except for what is noted in the history of present illness *Physical Exam - Physical Exam Comments: GENERAL: Adult male, in moderate distress secondary to migraine headache/neck pain HEAD: Normal with no signs of trauma. EYES: PERRLA, EOMI, sclera anicteric, conjunctiva clear. ENT: Ears normal, nares patent, oropharynx clear without exudates. Dry mucous membranes. NECK: Normal range of motion, supple without lymphadenopathy, JVD, or masses. Moderate tenderness left paraspinal cervical/left trapezius muscles LUNGS: Breath sounds equal, clear to auscultation bilaterally. No wheezes, and no crackles. HEART:Regular rate and rhythm, normal S1 and S2 without murmur, rub or gallop. ABDOMEN:.normal bowel sounds No guarding,tenderness or rebound.No masses No distention. EXTREMITIES: Normal range of motion, no edema. No clubbing or cyanosis. No erythema, or tenderness. NEUROLOGICAL: Cranial nerves II through XII grossly intact. Normal speech. No focal neurological deficits. MUSCULOSKELETAL: Back non-tender to palpation, no CVA tenderness Medical Decision Making - Medical Decision Making This 62-year-old man with a long history of migraine headache and left-sided neck pain, well-known to this emergency Department, presents with typical symptoms of severe flareup of his migraine. No unusual characteristics of this episode. In the past, the patient has had relief of his pain with Dilaudid/Benadryl Patient given Dilaudid 6 mg/Benadryl 50 mg IM. Patient had partial relief of his symptoms after above medications administered. Since he had some residual neck pain and headache, an additional 3 mg Dilaudid IM given. Patient reported significant relief of his pain after the above medications; nausea has resolved. Patient was discharged with instructions to continue his medications as prescribed. He has follow-up with his metal temperer/ neurosurgeon/pain service physicians already scheduled. He should return to the emergency room if he has any recurrent severe headache/neck pain that does not respond to his home analgesic regimen. *DC/Admit/Observation/Transfer Diagnosis at time of Disposition: Migraine, Neck pain - Discharge Dispostion Disposition: HOME Condition at time of disposition: Stable - Referrals - Patient Instructions Additional Instructions: Follow-up with your physicians as scheduled Continue medications as prescribed Return to ER if you have persistent, severe pain - Post Discharge Activity
[2017-12-22] MEDS ORDERED: HYDROmorphone HCL CARPU-JECT 2 MG/1 ML DISP.SYRIN IM ONE ×2 (21:29→22:37)
[2017-12-22 21:30] VITALS: BP 151/74; PULSE 66; TEMP 98.1; BMI 36.8
[2017-12-22] MEDS ORDERED: HYDROmorphone HCL CARPU-JECT 2 MG/1 ML DISP.SYRIN ONE ×2 (21:31→22:41)
== END 2017-12-22 23:28 | disposition home or self-care (01) ==
LOC: FER 21:18
PROC: 3E023GC Introduction of Other Therapeutic Substance into Muscle, Percutaneous Approach (ICD-10-PCS; principal; 2017-12-22)
PROC: 3E023NZ Introduction of Analgesics, Hypnotics, Sedatives into Muscle, Percutaneous Approach (ICD-10-PCS; 2017-12-22)
DX: G43.909 Migraine, unspecified, not intractable, without status migrainosus (principal); M54.2 Cervicalgia
CPT/HCPCS: 96372; 99282-25

== ENCOUNTER 2018-01-21 20:27 | Emergency (ER) | payer OTHER, BC ==
[2018-01-21 20:41] VITALS: PULSE 78; TEMP 98.2; BMI 35.6
[2018-01-21] MEDS ORDERED: HYDROmorphone HCL CARPU-JECT 2 MG/1 ML DISP.SYRIN IM ONE ×2 (20:41→21:31)
--- NOTE | 2018-01-21 20:43 | PDOC ---
History of Present Illness - History of Present Illness Initial Comments: 01/21/18 20:57 The patient is a 62 year old male with a past medical history of chronic migraine, chronic neck pain (history of cervical spine fusion surgery), NIDDM, GERD, HTN, history of [place] with stent placement who presents with left sided head and neck pain since today. The patient notes that his symptoms are typical of his usual migraine patterns. The patient has had no relief of his pain despite taking his usual pain/headache medications <Franco Gallardo - Last Filed: 01/21/18 20:57> <Pro Palacios - Last Filed: 01/22/18 01:42> - General Chief Complaint: Pain, Acute Stated Complaint: MIGRAINE, NECK PAIN ABDOMINAL DISCOMFORT Time Seen by Provider: 01/21/18 20:41 Past History <Franco Gallardo - Last Filed: 01/21/18 20:57> - Past Medical History Cardiac Disorders: Yes ([place]) COPD: No Diabetes: Yes GI Disorders: Yes ([place]) Hypercholesterolemia: Yes - Surgical History Cardiac Surgery: Yes (STENTS X4) Cholecystectomy: Yes - Immunization History Td Vaccination: Yes TDAP Vaccination: Yes Immunization Up to Date: No - Suicide/Smoking/Psychosocial Hx Smoking Status: Yes Smoking History: Current every day smoker Years of Tobacco Use: 30 Have you smoked in the past 12 months: Yes Number of Cigarettes Smoked Daily: 20 Cigars Per Day: 0 'Breaking Loose' booklet given: 07/15/17 Hx Alcohol Use: Yes Drug/Substance Use Hx: No Substance Use Type: None Hx Substance Use Treatment: No <Pro Palacios - Last Filed: 01/22/18 01:42> - Past Medical History Allergies/Adverse Reactions: Allergies Allergy/AdvReac Type Severity Reaction Status Date / Time prochlorperazine maleate AdvReac Intermediate Rash Verified 01/21/18 20:30 [From Compazine] sumatriptan [From Imitrex] AdvReac Mild Rash Verified 01/21/18 20:30 sumatriptan succinate AdvReac Mild Rash Verified 01/21/18 20:30 [From Imitrex] Home Medications: Ambulatory Orders Aspirin [Aspirin EC] 325 mg PO DAILY 12/29/13 Famotidine [Pepcid -] 20 mg PO HS 12/29/13 Fenofibrate [Fenofibrate -] 160 mg PO DAILY 12/29/13 Gabapentin 400 mg PO 5XD 12/29/13 Metoprolol Tartrate [Lopressor -] 50 mg PO BID 12/29/13 Oxybutynin Chloride 5 mg PO DAILY 12/29/13 Pantoprazole Sodium 40 mg PO DAILY 12/29/13 Rosuvastatin Calcium [Crestor] 40 mg PO HS 12/29/13 Silodosin [Rapaflo] 8 mg PO DAILY 12/29/13 Ranolazine [Ranexa] 1,000 mg PO BID 06/28/14 Metformin HCl [Glucophage] 1,000 mg PO BID 09/18/15 Aspirin/Acetaminophen/Caffeine [Excedrin Migraine Caplet] 2 each PO BID Sucralfate Oral Suspension [Carafate *Oral Susp*] 1 gm PO TID 06/26/16 Amitriptyline HCl [Elavil -] 10 mg PO BID PRN 12/08/16 Sertraline HCl [Zoloft -] 50 mg PO DAILY 11/26/17 Oxycodone HCl/Acetaminophen [Endocet 7.5-325 mg Tablet] 1 - 2 each PO Q6H PRN Review of Systems - Review of Systems Able to Perform ROS?: Yes Comments:: 01/21/18 20:57 GENERAL/CONSTITUTIONAL: No fever or chills. No weakness. HEAD, EYES, EARS, NOSE AND THROAT: No change in vision. No ear pain or discharge. No sore throat. GASTROINTESTINAL: No nausea, vomiting, diarrhea or constipation. GENITOURINARY: No dysuria, frequency, or change in urination. CARDIOVASCULAR: No chest pain or shortness of breath. RESPIRATORY: No cough, wheezing, or hemoptysis. MUSCULOSKELETAL: No joint or muscle swelling or pain. (+) neck pain. SKIN: No rash NEUROLOGIC:(+) headache. No vertigo, loss of consciousness, or change in strength/sensation. ENDOCRINE: No increased thirst. No abnormal weight change. HEMATOLOGIC/LYMPHATIC: No anemia, easy bleeding, or history of blood clots. ALLERGIC/IMMUNOLOGIC: No hives or skin allergy. <Franco Gallardo - Last Filed: 01/21/18 20:57> *Physical Exam - Vital Signs Last Vital Signs Temp Pulse Resp BP Pulse Ox 98.2 F 78 16 161/82 100 01/21/18 20:35 01/21/18 20:35 01/21/18 20:35 01/21/18 20:35 01/21/18 20:35 - Physical Exam Comments: 01/21/18 20:58 GENERAL: Awake, alert, and fully oriented, in no acute distress HEAD: No signs of trauma EYES: PERRLA, EOMI, sclera anicteric, conjunctiva clear ENT: Auricles normal inspection, hearing grossly normal, nares patent, oropharynx clear without exudates. Moist mucosa NECK: Normal ROM, supple, no lymphadenopathy, JVD, or masses LUNGS: Breath sounds equal, clear to auscultation bilaterally. No wheezes, and no crackles HEART: Regular rate and rhythm, normal S1 and S2, no murmurs, rubs or gallops ABDOMEN: Soft, nontender, normoactive bowel sounds. No guarding, no rebound. No masses EXTREMITIES: Normal range of motion, no edema. No clubbing or cyanosis. No cords, erythema, or tenderness NEUROLOGICAL: Cranial nerves II through XII grossly intact. Normal speech, normal gait SKIN: Warm, Dry, normal turgor, no rashes or lesions noted. <Franco Gallardo - Last Filed: 01/21/18 20:57> ED Treatment Course - Medications Given in the ED: ED Medications Discontinued Medications Generic Name Dose Route Start Last Admin Trade Name Héctor PRN Reason Stop Dose Admin Diphenhydramine HCl 50 mg 01/21/18 20:42 01/21/18 20:55 Benadryl Injection - IM 01/21/18 20:43 50 mg ONCE ONE Administration Hydromorphone HCl 6 mg 01/21/18 20:41 01/21/18 20:55 Dilaudid Injection - IM 01/21/18 20:42 6 mg ONCE ONE Administration <Franco Gallardo - Last Filed: 01/21/18 20:57> Medical Decision Making - Medical Decision Making 01/22/18 01:42 chronic pain syndrome analgesia <Pro Palacios - Last Filed: 01/22/18 01:42> *DC/Admit/Observation/Transfer - Attestations Scribe Attestion: 01/21/18 20:58 Documentation prepared by Franco Gallardo, acting as medical lab assistant for Pro Palacios MD. <Franco Gallardo - Last Filed: 01/21/18 20:57> <Pro Palacios - Last Filed: 01/22/18 01:42> Diagnosis at time of Disposition: Chronic pain Qualifiers: Chronic pain type: chronic pain syndrome Qualified Code(s): G89.4 - Chronic pain syndrome - Discharge Dispostion Disposition: HOME Condition at time of disposition: Stable - Patient Instructions Additional Instructions: Do not drive for 8 hours
[2018-01-21] MEDS ORDERED: HYDROmorphone HCL CARPU-JECT 2 MG/1 ML DISP.SYRIN ONE ×2 (20:44→21:31)
[2018-01-21 21:35] VITALS: BP 133/69
== END 2018-01-21 21:46 | disposition home or self-care (01) ==
LOC: FER 20:27
PROC: 3E023GC Introduction of Other Therapeutic Substance into Muscle, Percutaneous Approach (ICD-10-PCS; principal; 2018-01-21)
PROC: 3E023NZ Introduction of Analgesics, Hypnotics, Sedatives into Muscle, Percutaneous Approach (ICD-10-PCS; 2018-01-21)
DX: G89.4 Chronic pain syndrome (principal)
CPT/HCPCS: 99282-25

== ENCOUNTER 2018-02-11 22:42 | Emergency (ER) | payer OTHER, BC ==
[2018-02-11 22:57] VITALS: BP 180/92; PULSE 79; TEMP 98.6; BMI 35.6
[2018-02-11] MEDS ORDERED: HYDROmorphone HCL CARPU-JECT 1 MG/1 ML DISP.SYRIN IM ONE (23:01)
[2018-02-11] MEDS ORDERED: HYDROmorphone HCL CARPU-JECT 2 MG/1 ML DISP.SYRIN ONE (23:04)
--- NOTE | 2018-02-11 23:42 | PDOC ---
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 Pt took his usual pain medication at home - percocet - which did not relieve his headache. Reports this headache is identical to his previous headaches that he has been treated for here in the past. Denies head trauma, focal weakness/numbness, stiff neck, fevers, chills. Denies CP, SOB, abd pain,urinary complaints, LE edema, N/V/D, rashes Past History - Past Medical History Allergies/Adverse Reactions: Allergies Allergy/AdvReac Type Severity Reaction Status Date / Time prochlorperazine maleate AdvReac Intermediate Rash Verified 02/11/18 22:53 [From Compazine] sumatriptan [From Imitrex] AdvReac Mild Rash Verified 02/11/18 22:53 sumatriptan succinate AdvReac Mild Rash Verified 02/11/18 22:53 [From Imitrex] Home Medications: Ambulatory Orders Aspirin [Aspirin EC] 325 mg PO DAILY 12/29/13 Famotidine [Pepcid -] 20 mg PO HS 12/29/13 Fenofibrate [Fenofibrate -] 160 mg PO DAILY 12/29/13 Gabapentin 400 mg PO 5XD 12/29/13 Metoprolol Tartrate [Lopressor -] 50 mg PO BID 12/29/13 Oxybutynin Chloride 5 mg PO DAILY 12/29/13 Pantoprazole Sodium 40 mg PO DAILY 12/29/13 Rosuvastatin Calcium [Crestor] 40 mg PO HS 12/29/13 Silodosin [Rapaflo] 8 mg PO DAILY 12/29/13 Ranolazine [Ranexa] 1,000 mg PO BID 06/28/14 Metformin HCl [Glucophage] 1,000 mg PO BID 09/18/15 Aspirin/Acetaminophen/Caffeine [Excedrin Migraine Caplet] 2 each PO BID Sucralfate Oral Suspension [Carafate *Oral Susp*] 1 gm PO TID 06/26/16 Amitriptyline HCl [Elavil -] 10 mg PO BID PRN 12/08/16 Sertraline HCl [Zoloft -] 50 mg PO DAILY 11/26/17 Oxycodone HCl/Acetaminophen [Endocet 7.5-325 mg Tablet] 1 - 2 each PO Q6H PRN Cardiac Disorders: Yes ([place]) COPD: No Diabetes: Yes GI Disorders: Yes ([place]) Hypercholesterolemia: Yes - Surgical History Cardiac Surgery: Yes (STENTS X4) Cholecystectomy: Yes - Immunization History Td Vaccination: Yes TDAP Vaccination: Yes Immunization Up to Date: No - Suicide/Smoking/Psychosocial Hx Smoking Status: Yes Smoking History: Current every day smoker Years of Tobacco Use: 30 Have you smoked in the past 12 months: Yes Number of Cigarettes Smoked Daily: 20 Cigars Per Day: 0 Information on smoking cessation initiated: Yes 'Breaking Loose' booklet given: 07/15/17 Hx Alcohol Use: No Drug/Substance Use Hx: No Substance Use Type: None Hx Substance Use Treatment: No Review of Systems - Review of Systems Comments:: 02/12/18 02:44 GENERAL/CONSTITUTIONAL: No fever or chills. No weakness. HEAD, EYES, EARS, NOSE AND THROAT: No change in vision. No ear pain or discharge. No sore throat. GASTROINTESTINAL: No nausea, vomiting, diarrhea or constipation. GENITOURINARY: No dysuria, frequency, or change in urination. CARDIOVASCULAR: No chest pain or shortness of breath. RESPIRATORY: No cough, wheezing, or hemoptysis. MUSCULOSKELETAL: No joint or muscle swelling or pain. No neck or back pain. SKIN: No rash NEUROLOGIC: +headache, no vertigo, loss of consciousness, or change in strength/ sensation. ENDOCRINE: No increased thirst. No abnormal weight change. HEMATOLOGIC/LYMPHATIC: No anemia, easy bleeding, or history of blood clots. ALLERGIC/IMMUNOLOGIC: No hives or skin allergy. *Physical Exam - Vital Signs Last Vital Signs Temp Pulse Resp BP Pulse Ox 98.6 F 79 20 180/92 100 02/11/18 22:53 02/11/18 22:53 02/11/18 22:53 02/11/18 22:53 02/11/18 22:53 - Physical Exam Comments: 02/12/18 02:45 GENERAL: Awake, alert, and fully oriented, in no acute distress HEAD: No signs of trauma EYES: PERRLA, EOMI, sclera anicteric, conjunctiva clear ENT: Auricles normal inspection, hearing grossly normal, nares patent, oropharynx clear without exudates. Moist mucosa NECK: Normal ROM, supple, no lymphadenopathy, JVD, or masses LUNGS: Breath sounds equal, clear to auscultation bilaterally. No wheezes, and no crackles HEART: Regular rate and rhythm, normal S1 and S2, no murmurs, rubs or gallops ABDOMEN: Soft, nontender, normoactive bowel sounds. No guarding, no rebound. No masses EXTREMITIES: Normal range of motion, no edema. No clubbing or cyanosis. No cords, erythema, or tenderness NEUROLOGICAL: Normal speech, cranial nerves intact, negative pronator drift, 5/ 5 strength in all 4 extremities, normal sensation to light touch in all 4 extremities, normal cerebellar exam, normal gait, normal reflexes and tone BACK: No cervical, thoracic, lumbar midline ttp SKIN: Warm, Dry, normal turgor, no rashes or lesions noted. ED Treatment Course - Medications Given in the ED: ED Medications Discontinued Medications Generic Name Dose Route Start Last Admin Trade Name Freq PRN Reason Stop Dose Admin Diphenhydramine HCl 50 mg 02/11/18 23:01 02/11/18 23:12 Benadryl Injection - IM 02/11/18 23:02 50 mg ONCE ONE Administration Hydromorphone HCl 6 mg 02/11/18 23:01 02/11/18 23:12 Dilaudid Injection - IM 02/11/18 23:02 6 mg ONCE ONE Administration Medical Decision Making - Medical Decision Making 02/12/18 11:15 62yo M presents with acute exacerbation of migraine/neck pain. Pt with frequent presentations to this ED in the past, gets treated with dilaudid 6mg + benadryl 50mg IM then usually gets a second round of IM dilaudid with good response. Pt is well appearing, no new deficits or injury, and on exam is neuro intact. No need for imaging at this time. Will proceed with pt's typical pain regimen and reassess. 02/12/18 01:48 Pt with complete resolution of migraine/neck pain. I discussed the physical exam findings, ancillary test results and final diagnoses with the patient. I answered all of the patient's questions. The patient was satisfied with the care received and felt comfortable with the discharge plan and treatment plan. The patient will call their primary care physician within 24 hours to arrange follow-up and will return to the Emergency Department with any new, persistent or worsening symptoms. *DC/Admit/Observation/Transfer Diagnosis at time of Disposition: Migraine - Discharge Dispostion Disposition: HOME Condition at time of disposition: Stable Admit: No - Referrals - Patient Instructions Printed Discharge Instructions: DI for Migraine Additional Instructions: Follow up with your primary doctor and pain management doctor within 1 week. It was a pleasure to take care of you in the emergency department today. Return to the emergency department if you have any new, worsening, or concerning symptoms - Post Discharge Activity - Attestations Physician Attestion: 02/12/18 01:28 I, Dr. Ruslan Scott MD, attest that this document has been prepared under my direction and personally reviewed by me in its entirety. I further attest, that it accurately reflects all work, treatment, procedures and medical decision -making performed by me.
[2018-02-12] MEDS ORDERED: HYDROmorphone HCL CARPU-JECT 2 MG/1 ML DISP.SYRIN ONE (00:36)
== END 2018-02-12 01:39 | disposition home or self-care (01) ==
LOC: FER 22:42
PROC: 3E033GC Introduction of Other Therapeutic Substance into Peripheral Vein, Percutaneous Approach (ICD-10-PCS; principal; 2018-02-11)
PROC: 3E033NZ Introduction of Analgesics, Hypnotics, Sedatives into Peripheral Vein, Percutaneous Approach (ICD-10-PCS; 2018-02-11)
DX: G43.909 Migraine, unspecified, not intractable, without status migrainosus (principal)
CPT/HCPCS: 99281-25

== ENCOUNTER 2018-02-27 20:51 | Emergency (ER) | payer BC, OTHER ==
--- NOTE | 2018-02-27 20:59 | PDOC ---
History of Present Illness - General History Source: Patient Exam Limitations: No Limitations - History of Present Illness Initial Comments: 02/27/18 21:56 The patient is a 62 year old male with a significant PMH of [place], acid reflux, diabetes, hypercholesterolemia and severe chronic pain who presents to the emergency department with an acute migraine and neck spasm earlier today. The patient reports that he went for a dental appointment today to have an abcess removed from his jaw when he had an onset of a migraine and a neck spasm. The patient reports that his neck spasm began on the left side and and radiated down his left arm . He reports that the pain severity of his neck spasm was a 10 /10. The patient denies any dizziness.The patient denies any other complaints. The patient intermittently comes to the ED for pain medication for his chronic pain. The patient has a pain specialist who he follows up with. The patient is compliant with all of his home medications. PAST MEDICAL HISTORY: [place], acid reflux, diabetes, and hypercholesterolemia PAST SURGICAL HISTORY: Cholecystectomy, Cardiac stent (4x) FAMILY HISTORY: no pertinent history SOCIAL HISTORY: none reported MEDICATIONS: As per nursing notes ALLERGIES: Prochlorperazine, Sumatriptan , Sumatriptan Succinate General: No fevers or chills, no weakness, no weight loss HEENT: No change in vision. No sore throat,. No ear pain CardioVascular: No chest pain or shortness of breath Respiratory:No cough, or wheezing. Gastrointestinal: no nausea, vomiting, diarrhea or constipation, No rectal bleeding Genitourinary: No dysuria, hematuria, or frequency Musculoskeletal: (+)Neck spasm. No joint or muscle pain or swelling Neurologic: (+)Migraine.No vertigo, dizziness or loss of consciousness Psychiatric: nor depression Skin: No rashes or easy bruising Endocrine: no increased thirst or abnormal weight change Allergic: no skin or latex allergy All other systems reviewed and normal GENERAL: (+) Spasm on palpation of left lateral neck. Spam of upper posterior back and left shoulder. The patient is awake, alert, and fully oriented, in no acute distress. HEAD: Normal with no signs of trauma. EYES: Pupils equal, round and reactive to light, extraocular movements intact, sclera anicteric, conjunctiva clear. EXTREMITIES: Normal range of motion, no edema. NEUROLOGICAL: Normal speech, normal gait. PSYCH: Normal mood, normal affect. SKIN: Warm, Dry, normal turgor, no rashes or lesions noted. <Mike Lee - Last Filed: 02/27/18 22:02> - General History Source: Patient Exam Limitations: No Limitations - History of Present Illness Initial Comments: A portion of this note was documented by scribe services under my direction. I have reviewed the details of the note, within reason, and agree with the documentation. The case summary and management plan written by me. 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 Patient comes in with acute exacerbation of his chronic pain secondary to some dental work that he had today. Patient was medicated with Dilaudid and Benadryl with improvement of his symptoms but not complete relief of his pain. Patient discharged home with his who drove him home. Patient will follow-up with his doctors 02/27/18 22:13 <Yury Sidhu I - Last Filed: 02/27/18 22:15> - General Chief Complaint: Migraine Headache Stated Complaint: MIGRAINE Time Seen by Provider: 02/27/18 20:59 Past History <Mike Lee - Last Filed: 02/27/18 22:02> - Past Medical History Cardiac Disorders: Yes ([place]) COPD: No Diabetes: Yes GI Disorders: Yes ([place]FLUX) Hypercholesterolemia: Yes - Surgical History Cardiac Surgery: Yes (STENTS X4) Cholecystectomy: Yes - Immunization History Td Vaccination: Yes TDAP Vaccination: Yes Immunization Up to Date: No - Suicide/Smoking/Psychosocial Hx Smoking Status: Yes Smoking History: Current every day smoker Years of Tobacco Use: 30 Have you smoked in the past 12 months: Yes Number of Cigarettes Smoked Daily: 20 Cigars Per Day: 0 'Breaking Loose' booklet given: 07/15/17 Hx Alcohol Use: No Drug/Substance Use Hx: No Substance Use Type: None Hx Substance Use Treatment: No <Yury Sidhu I - Last Filed: 02/27/18 22:15> - Past Medical History Allergies/Adverse Reactions: Allergies Allergy/AdvReac Type Severity Reaction Status Date / Time prochlorperazine maleate AdvReac Intermediate Rash Verified 02/27/18 20:56 [From Compazine] sumatriptan [From Imitrex] AdvReac Mild Rash Verified 02/27/18 20:56 sumatriptan succinate AdvReac Mild Rash Verified 02/27/18 20:56 [From Imitrex] Home Medications: Ambulatory Orders Aspirin [Aspirin EC] 325 mg PO DAILY 12/29/13 Famotidine [Pepcid -] 20 mg PO HS 12/29/13 Fenofibrate [Fenofibrate -] 160 mg PO DAILY 12/29/13 Gabapentin 400 mg PO 5XD 12/29/13 Metoprolol Tartrate [Lopressor -] 50 mg PO BID 12/29/13 Oxybutynin Chloride 5 mg PO DAILY 12/29/13 Pantoprazole Sodium 40 mg PO DAILY 12/29/13 Rosuvastatin Calcium [Crestor] 40 mg PO HS 12/29/13 Silodosin [Rapaflo] 8 mg PO DAILY 12/29/13 Ranolazine [Ranexa] 1,000 mg PO BID 06/28/14 Metformin HCl [Glucophage] 1,000 mg PO BID 09/18/15 Aspirin/Acetaminophen/Caffeine [Excedrin Migraine Caplet] 2 each PO BID Sucralfate Oral Suspension [Carafate *Oral Susp*] 1 gm PO TID 06/26/16 Amitriptyline HCl [Elavil -] 10 mg PO BID PRN 12/08/16 Sertraline HCl [Zoloft -] 50 mg PO DAILY 11/26/17 Oxycodone HCl/Acetaminophen [Endocet 7.5-325 mg Tablet] 1 - 2 each PO Q6H PRN *Physical Exam - Vital Signs Last Vital Signs Temp Pulse Resp BP Pulse Ox 97.9 F 85 18 156/79 100 02/27/18 20:57 02/27/18 20:57 02/27/18 20:57 02/27/18 20:57 02/27/18 20:57 <Mike Lee - Last Filed: 02/27/18 22:02> ED Treatment Course - Medications Given in the ED: ED Medications Discontinued Medications Generic Name Dose Route Start Last Admin Trade Name Freq PRN Reason Stop Dose Admin Diphenhydramine HCl 50 mg 02/27/18 21:00 02/27/18 21:06 Benadryl Injection - IM 02/27/18 21:01 50 mg ONCE ONE Administration Hydromorphone HCl 6 mg 02/27/18 21:00 02/27/18 21:07 Dilaudid Injection - IM 02/27/18 21:01 6 mg ONCE ONE Administration <Mike Lee - Last Filed: 02/27/18 22:02> *DC/Admit/Observation/Transfer <Mike Lee - Last Filed: 02/27/18 22:02> - Discharge Dispostion Admit: No <Yury Sidhu I - Last Filed: 02/27/18 22:15> Diagnosis at time of Disposition: Migraine, Neck pain - Discharge Dispostion Disposition: HOME Condition at time of disposition: Stable - Patient Instructions Additional Instructions: Continue to take all your medications as prescribed by your doctor. Return to the emergency department immediately with ANY new, persistent or worsening symptoms. Continue any medications as previously prescribed by your physician. You should follow up with your primary doctor as soon as possible regarding today's emergency department visit. . Please make sure your doctor reviews the results of your emergency evaluation. Thank you for coming to the Emergency Department today for your care. It was a pleasure to see you today. Please note that your evaluation is INCOMPLETE until you follow-up with your doctor.
[2018-02-27 21:00] VITALS: BP 156/79; PULSE 85; TEMP 97.9; BMI 36.3
[2018-02-27] MEDS ORDERED: HYDROmorphone HCL CARPU-JECT 1 MG/1 ML DISP.SYRIN IM ONE ×2 (21:00→22:11)
[2018-02-27] MEDS ORDERED: HYDROmorphone HCL CARPU-JECT 2 MG/1 ML DISP.SYRIN ONE (22:13)
== END 2018-02-27 22:28 | disposition home or self-care (01) ==
LOC: FER 20:51
PROC: 3E033GC Introduction of Other Therapeutic Substance into Peripheral Vein, Percutaneous Approach (ICD-10-PCS; principal; 2018-02-27)
PROC: 3E033NZ Introduction of Analgesics, Hypnotics, Sedatives into Peripheral Vein, Percutaneous Approach (ICD-10-PCS; 2018-02-27)
DX: G43.909 Migraine, unspecified, not intractable, without status migrainosus (principal); M54.2 Cervicalgia; Z95.5 Presence of coronary angioplasty implant and graft; K21.9 Gastro-esophageal reflux disease without esophagitis; E11.9 Type 2 diabetes mellitus without complications; I25.2 Old myocardial infarction; F17.210 Nicotine dependence, cigarettes, uncomplicated
CPT/HCPCS: 99281-25

== ENCOUNTER 2018-04-05 22:29 | Emergency (ER) | payer OTHER, BC ==
--- NOTE | 2018-04-05 22:38 | PDOC ---
History of Present Illness - General Chief Complaint: Pain, Acute Stated Complaint: PAIN ABD/NECK/HEAD - History of Present Illness Initial Comments: 04/06/18 00:33 Pt presents to the ED complaining of diffuse abdominal pain that started today at 7 pm. Patient reports an extensive history of abdominal pain and states that he had a laproscopic procedure to "clip something" in his abdomen three weeks ago. He states that his chronic abdominal pain had resolved after this procedure but that it returned today. Pain is constant, diffuse but worse in his lower abdomen and is severe. It is exacerbated by movement and eating. He denies fevers, nausea or vomiting. States that he had a normal bowel movement this morning. Patient also reports that he has a migraine that is similar to his chronic migraines. Past History - Travel Traveled outside of the country in the last 30 days: No Close contact w/someone who was outside of country & ill: No - Past Medical History Allergies/Adverse Reactions: Allergies Allergy/AdvReac Type Severity Reaction Status Date / Time prochlorperazine maleate AdvReac Intermediate Rash Verified 02/27/18 20:56 [From Compazine] sumatriptan [From Imitrex] AdvReac Mild Rash Verified 02/27/18 20:56 sumatriptan succinate AdvReac Mild Rash Verified 02/27/18 20:56 [From Imitrex] Home Medications: Ambulatory Orders Aspirin [Aspirin EC] 325 mg PO DAILY 12/29/13 Famotidine [Pepcid -] 20 mg PO HS 12/29/13 Fenofibrate [Fenofibrate -] 160 mg PO DAILY 12/29/13 Gabapentin 400 mg PO 5XD 12/29/13 Metoprolol Tartrate [Lopressor -] 50 mg PO BID 12/29/13 Oxybutynin Chloride 5 mg PO DAILY 12/29/13 Pantoprazole Sodium 40 mg PO DAILY 12/29/13 Rosuvastatin Calcium [Crestor] 40 mg PO HS 12/29/13 Metformin HCl [Glucophage] 1,000 mg PO BID 09/18/15 Aspirin/Acetaminophen/Caffeine [Excedrin Migraine Caplet] 2 each PO BID PRN Sucralfate Oral Suspension [Carafate *Oral Susp*] 1 gm PO TID 06/26/16 Sertraline HCl [Zoloft -] 75 mg PO DAILY 11/26/17 Oxycodone HCl/Acetaminophen [Endocet 7.5-325 mg Tablet] 1 - 2 each PO Q6H PRN Cholecalciferol (Vitamin D3) [Vitamin D3] 1,000 unit PO DAILY 04/05/18 Cyanocobalamin (Vitamin B-12) [Vitamin B-12] 1,000 mcg PO DAILY 04/05/18 Lipase/Protease/Amylase [Zenpep Dr 20,000 Units Capsule] 1 each PO TID 04/05/18 Valsartan [Diovan] 80 mg PO DAILY 04/05/18 Cardiac Disorders: Yes ([place]) COPD: No Diabetes: Yes GI Disorders: Yes (REFLUX) Hypercholesterolemia: Yes - Surgical History Cardiac Surgery: Yes (STENTS X4) Cholecystectomy: Yes - Immunization History Td Vaccination: Yes TDAP Vaccination: Yes Immunization Up to Date: No - Suicide/Smoking/Psychosocial Hx Smoking Status: Yes Smoking History: Current every day smoker Years of Tobacco Use: 30 Have you smoked in the past 12 months: Yes Number of Cigarettes Smoked Daily: 20 Cigars Per Day: 0 'Breaking Loose' booklet given: 02/27/18 Hx Alcohol Use: No Drug/Substance Use Hx: No Substance Use Type: None Hx Substance Use Treatment: No Review of Systems - Review of Systems Able to Perform ROS?: Yes Is the patient limited [place]uran proficient: No Constitutional: No: Symptoms Reported, See HPI, Chills, Diaphoresis, Fever, Loss of Appetite, Malaise, Night Sweats, Weakness, Weight Stable, Unintentional Wgt. Loss, Unexplained wgt Loss, Other HEENTM: No: Symptoms Reported, See HPI, Eye Pain, Blurred Vision, Tearing, Recent change in vision, Double Vision, Cataracts, Ear Pain, Ocular Prothesis, Ear Discharge, Nose Pain, Nose Congestion, Tinnitus, Nose Bleeding, Hearing Loss , Throat Pain, Throat Swelling, Mouth Pain, Dental Problems, Difficulty Swallowing, Mouth Swelling, Other Respiratory: No: Symptoms reported, See HPI, Cough, Orthopnea, Shortness of Breath, SOB with Exertion, SOB at Rest, Stridor, Wheezing, Productive cough, Hemoptysis, Other Cardiac (ROS): No: Symptoms Reported, See HPI, Chest Pain, Edema, Irregular Heart Rate, Lightheadedness, Palpitations, Syncope, Chest Tightness, Other ABD/GI: Yes: Nausea, Other (abdominal pain) : No: Symptoms Reported, See HPI, Burning, Dysuria, Discharge, Frequency, Flank Pain, Hematuria, Incontinence, Pain, Urgency, Testicular Mass, Testicular Swelling, Lesions, Testicular Pain, Other Musculoskeletal: No: Symptoms Reported, See HPI, Back Pain, Gout, Joint Pain, Joint Swelling, Muscle Pain, Muscle Weakness, Neck Pain, Joint Stiffness, Other Psychiatric: No: Anxiety, Depression, Frequent Crying, Stressors, Sleep Pattern Change, Emotional Problems, Mood Swings, Change in Appetite, Other Endocrine: No: Symptoms Reported, See HPI, Excessive Sweating, Flushing, Intolerance to Cold, Intolerance to Heat, Increased Hunger, Increased Thirst, Increased Urine, Unexplained Weight Gain, Unexplained Weight Loss, Change in Weight, Other All Other Systems: Reviewed and Negative *Physical Exam - Physical Exam General Appearance: Yes: Nourished, Appropriately Dressed. No: Apparent Distress, Disheveled, Mild Distress, Moderate Distress, Severe Distress, Alcohol on Breath, Intoxicated, Cachetic, Obese, Thin, Other HEENT: positive: Normal ENT Inspection Neck: positive: Supple Respiratory/Chest: positive: Lungs Clear, Normal Breath Sounds Cardiovascular: positive: Regular Rhythm, Regular Rate Gastrointestinal/Abdominal: positive: Normal Bowel Sounds, Tender, Soft. negative: Flat, Organomegaly, Pulsatile Mass, Increased Bowel Sounds, Decreased BS, Protuberent, Distended, Guarding, Rebound, Tenderness, Hernia, Mass, Hepatomegaly, Spleenomegaly, Other Musculoskeletal: positive: Normal Inspection Extremity: positive: Normal Inspection, Normal Range of Motion Integumentary: positive: Normal Color, Dry, Warm Neurologic: positive: Fully Oriented, Alert, Normal Mood/Affect ED Treatment Course - LABORATORY CBC & Chemistry Diagram: 04/05/18 23:15 04/05/18 23:15 Medical Decision Making - Medical Decision Making 04/06/18 00:39 Pt presents to the ED complaining of diffuse abdominal pain. It is somewhat unclear whether this is a new symptom for him, or whether this is simply a recurrence of his previous chronic pain, but given his abdominal tenderness and the fact that he has not had imaging in this institution since 2016, I will scan his abdomen to rule out intraabdomial pathology. Will check labs, give pain control and reassess. Migraine is similar to his chronic migraine and is improved with dilaudid. 04/06/18 02:08 Pain is now resolved. Ct is read as possible illeus, which seems unlikely since patient is tolerating PO and is passing flatus and having bowel movements. Patient states that he feels better and is asking to go home. Will discharge patient home with instructions to return for worsening symptms. *DC/Admit/Observation/Transfer Diagnosis at time of Disposition: Abdominal pain Qualifiers: Abdominal location: generalized Qualified Code(s): R10.84 - Generalized abdominal pain - Discharge Dispostion Disposition: HOME Condition at time of disposition: Good Decision to Admit order: No - Referrals - Patient Instructions Printed Discharge Instructions: DI for Abdominal Pain-Adult Additional Instructions: return to the ED for severe pain, nausea and vomiting, pain with fever, distended abdomen, other new or worsening symptoms. 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 - Post Discharge Activity
[2018-04-05 22:47] VITALS: BP 125/61; PULSE 82; TEMP 97.8; BMI 33.0
[2018-04-05] MEDS ORDERED: HYDROmorphone HCL CARPU-JECT 2 MG/1 ML DISP.SYRIN IVPUSH ONE (22:52)
[2018-04-05] MEDS ORDERED: HYDROmorphone HCL CARPU-JECT 2 MG/1 ML DISP.SYRIN ONE (22:59)
[2018-04-05 23:23] LABS: BASO % 0.7 % (0-2.0); EOS % 2.9 % (0-4.5); HEMATOCRIT 35.2 % (35.4-49); HEMOGLOBIN 11.3 GM/dl (11.7-16.9); MCH 25.8 pg (25.7-33.7); MEAN CELL VOLUME 80.5 fl (80-96); MEAN PLT VOLUME 8.9 fl (7.5-11.1); MONO % 7.5 % (3.8-10.2); NEUT % 58.9 % (42.8-82.8); PLATELET COUNT 235 K/MM3 (134-434); RBC 4.36 M/mm3 (4.00-5.60); RDW 16.3 % (11.9-15.9); WHITE BLOOD COUNT 10.3 K/mm3 (4.0-10.8)
[2018-04-05 23:38] LABS: ALBUMIN 4.3 g/dl (3.5-5.0); ALK PHOS 46 U/L (32-92); ANION GAP 7 (8-16); BLOOD UREA NITROGEN 33 mg/dl (7-18); CALCIUM 9.6 mg/dl (8.4-10.2); CHLORIDE 109 mmol/L (98-107); CO2 23 mmol/L (22-28); CREATININE 1.9 mg/dl (0.6-1.3); GLUCOSE,RANDOM 133 mg/dl (74-106); POTASSIUM 4.5 mmol/L (3.5-5.1); SGOT/AST 25 U/L (10-42); SGPT/ALT 13 U/L (10-40); SODIUM 139 mmol/L (136-145); TOT PROT 6.7 g/dl (6.4-8.3)
[2018-04-05 23:49] LABS: BILIRUBIN,TOTAL 0.5 mg/dl (0.2-1.0)
== END 2018-04-06 02:14 | disposition home or self-care (01) ==
LOC: FER 22:29
PROC: 3E033GC Introduction of Other Therapeutic Substance into Peripheral Vein, Percutaneous Approach (ICD-10-PCS; principal; 2018-04-05)
PROC: 3E033NZ Introduction of Analgesics, Hypnotics, Sedatives into Peripheral Vein, Percutaneous Approach (ICD-10-PCS; 2018-04-05)
DX: R10.84 Generalized abdominal pain (principal); K21.9 Gastro-esophageal reflux disease without esophagitis; I25.2 Old myocardial infarction; E11.9 Type 2 diabetes mellitus without complications; E78.00 Pure hypercholesterolemia, unspecified; Z87.891 Personal history of nicotine dependence; Z95.5 Presence of coronary angioplasty implant and graft
CPT/HCPCS: 36415; 74176-TC; 80053; 83605; 85025; 99283-25

== ENCOUNTER → 2018-04-08 | Emergency (ER) | payer OTHER, BC ==
[~2018-04-08] MED LIST: HYDROmorphone HCL CARPU-JECT 1 MG/1 ML DISP.SYRIN IVPUSH ONE; HYDROmorphone HCL CARPU-JECT 2 MG/1 ML DISP.SYRIN IVPUSH ONE; HYDROmorphone HCL CARPU-JECT 2 MG/1 ML DISP.SYRIN ONE; HYOSCYAMINE SULFATE 0.125 MG *ODT ONE; LIDOCAINE VISCOUS 2% ORAL/TOP 20 ML UNIT-DOSE CUP MM ONE; LIDOCAINE VISCOUS 2% ORAL/TOP 20 ML UNIT-DOSE CUP ONE; MAG HYDROX/AL HYDROX/SIMETH 30 ML UNIT-DOSE CUP ONE; MAG HYDROX/AL HYDROX/SIMETH 30 ML UNIT-DOSE CUP PO ONE; ONDANSETRON 4 MG/2 ML VIAL IVPUSH ONE; ONDANSETRON 4 MG/2 ML VIAL ONE; SIMETHICONE 80 MG TAB.CHEW (FP) ONE; SIMETHICONE 80 MG TAB.CHEW (FP) PO ONE; SODIUM CHLORIDE 0.9% 1000 ML INFUS.BAG IV ONE; SODIUM CHLORIDE 1,000 ML IV ONE
--- NOTE | 2018-04-08 17:51 | PDOC ---
History of Present Illness - General History Source: Patient Exam Limitations: No Limitations - History of Present Illness Initial Comments: 04/08/18 18:51 The patient is a 62 year old male with a significant PMH of acid reflux, ME, GERD, diabetes, cholecystectomy, cardiac stents(4x), hypercholesterolemia, and severe chronic pain who presents to the emergency department with severe abdominal pain. The patient reports that he experienced similar episodes two days ago by which he did a CT of his abdomen with no specific findings. The patient states that when he eats and swallows his food he experiences extreme pain in his lower abdomen. The patient reports that he had steak and fries today and a burger yesterday. He reports that he was unable to finish either meals secondary to his onset of abdominal pain. The patient reports associated nausea and gas with his abdominal pain and normal bowel. The patient also reports difficulty with urination. He denies the urgency. The patient denies chest pain, shortness of breath, headache and dizziness. He denies fever, chills , vomit, diarrhea and constipation. The patient denies any other complaints. <Mike Lee - Last Filed: 04/08/18 18:51> <Nanette Orozco - Last Filed: 04/19/18 01:52> - General Chief Complaint: Pain Stated Complaint: ABD PAIN Time Seen by Provider: 04/08/18 17:51 Past History <Mike Lee - Last Filed: 04/08/18 18:51> - Past Medical History Cardiac Disorders: Yes ([place]) COPD: No Diabetes: Yes GI Disorders: Yes (REFLUX) Hypercholesterolemia: Yes - Surgical History Abdominal Surgery: Yes Cardiac Surgery: Yes (STENTS X4) Cholecystectomy: Yes - Immunization History Td Vaccination: Yes TDAP Vaccination: Yes Immunization Up to Date: No - Suicide/Smoking/Psychosocial Hx Smoking Status: Yes Smoking History: Current every day smoker Years of Tobacco Use: 30 Have you smoked in the past 12 months: Yes Number of Cigarettes Smoked Daily: 20 Cigars Per Day: 0 'Breaking Loose' booklet given: 02/27/18 Hx Alcohol Use: No Drug/Substance Use Hx: No Substance Use Type: None Hx Substance Use Treatment: No <Nanette Orozco - Last Filed: 04/19/18 01:52> - Past Medical History Allergies/Adverse Reactions: Allergies Allergy/AdvReac Type Severity Reaction Status Date / Time prochlorperazine maleate AdvReac Intermediate Rash Verified 04/08/18 17:53 [From Compazine] sumatriptan [From Imitrex] AdvReac Mild Rash Verified 04/08/18 17:53 sumatriptan succinate AdvReac Mild Rash Verified 04/08/18 17:53 [From Imitrex] Home Medications: Ambulatory Orders Aspirin [Aspirin EC] 325 mg PO DAILY 12/29/13 Famotidine [Pepcid -] 20 mg PO HS 12/29/13 Fenofibrate [Fenofibrate -] 160 mg PO DAILY 12/29/13 Gabapentin 400 mg PO 5XD 12/29/13 Metoprolol Tartrate [Lopressor -] 50 mg PO BID 12/29/13 Oxybutynin Chloride 5 mg PO DAILY 12/29/13 Pantoprazole Sodium 40 mg PO DAILY 12/29/13 Rosuvastatin Calcium [Crestor] 40 mg PO HS 12/29/13 Metformin HCl [Glucophage] 1,000 mg PO BID 09/18/15 Aspirin/Acetaminophen/Caffeine [Excedrin Migraine Caplet] 2 each PO BID PRN Sucralfate Oral Suspension [Carafate *Oral Susp*] 1 gm PO TID 06/26/16 Sertraline HCl [Zoloft -] 75 mg PO DAILY 11/26/17 Oxycodone HCl/Acetaminophen [Endocet 7.5-325 mg Tablet] 1 - 2 each PO Q6H PRN Cholecalciferol (Vitamin D3) [Vitamin D3] 1,000 unit PO DAILY 04/05/18 Cyanocobalamin (Vitamin B-12) [Vitamin B-12] 1,000 mcg PO DAILY 04/05/18 Lipase/Protease/Amylase [Zenpep Dr 20,000 Units Capsule] 1 each PO TID 04/05/18 Valsartan [Diovan] 80 mg PO DAILY 04/05/18 Review of Systems - Review of Systems Able to Perform ROS?: Yes Comments:: 04/08/18 18:51 GENERAL/CONSTITUTIONAL: No fever or chills. No weakness. HEAD, EYES, EARS, NOSE AND THROAT: No change in vision. No ear pain or discharge. No sore throat. CARDIOVASCULAR: No chest pain or shortness of breath. RESPIRATORY: No cough, wheezing, or hemoptysis. GASTROINTESTINAL:(+) severe abdominal pain and nausea. No vomiting, diarrhea or constipation. GENITOURINARY: No dysuria, frequency, or change in urination. MUSCULOSKELETAL: No joint or muscle swelling or pain. No neck or back pain. SKIN: No rash NEUROLOGIC: No headache, vertigo, loss of consciousness, or change in strength/ sensation. ENDOCRINE: No increased thirst. No abnormal weight change. HEMATOLOGIC/LYMPHATIC: No anemia, easy bleeding, or history of blood clots. ALLERGIC/IMMUNOLOGIC: No hives or skin allergy. <Mike Lee - Last Filed: 04/08/18 18:51> *Physical Exam - Vital Signs Last Vital Signs Temp Pulse Resp BP Pulse Ox 98.6 F 87 20 140/67 100 04/08/18 17:50 04/08/18 17:50 04/08/18 17:50 04/08/18 17:50 04/08/18 17:50 - Physical Exam Comments: 04/08/18 18:52 GENERAL: Awake, alert, and fully oriented, in no acute distress HEAD: No signs of trauma EYES: PERRLA, EOMI, sclera anicteric, conjunctiva clear ENT: Auricles normal inspection, hearing grossly normal, nares patent, oropharynx clear without exudates. Moist mucosa NECK: Normal ROM, supple, no lymphadenopathy, JVD, or masses LUNGS: Breath sounds equal, clear to auscultation bilaterally. No wheezes, and no crackles HEART: Regular rate and rhythm, normal S1 and S2, no murmurs, rubs or gallops ABDOMEN:(+) Belly soft, mildly diffuse and tender, normoactive bowel sounds. No guarding, no rebound. No masses EXTREMITIES: Normal range of motion, no edema. No clubbing or cyanosis. No cords, erythema, or tenderness NEUROLOGICAL: Cranial nerves II through XII grossly intact. Normal speech, normal gait SKIN: Warm, Dry, normal turgor, no rashes or lesions noted. <Mike Lee - Last Filed: 04/08/18 18:51> ED Treatment Course - ADDITIONAL ORDERS Additional order review: Laboratory Results 04/08/18 18:28 Urine Color Yellow Urine Appearance Clear Urine pH 5.5 Ur Specific [place] 1.020 Urine Protein Negative Urine Glucose (UA) Negative Urine Ketones Negative Urine Blood Negative Urine Nitrite Negative Urine Bilirubin Negative Urine Urobilinogen 0.2 Ur Leukocyte Esterase Negative <Mike Lee - Last Filed: 04/08/18 18:51> - LABORATORY CBC & Chemistry Diagram: 04/08/18 18:46 04/08/18 01:44 <Nanette Orozco - Last Filed: 04/19/18 01:52> Medical Decision Making - Medical Decision Making 04/08/18 18:14 a/p: 62yo male presents with diffuse abd pain assoc with nausea -no vomiting -+flatus, last bm this AM and normal -no f/c -underwent ct imaging 3 days ago that did not show acute pathology -has had multiple abd surgeries in the past for chronic abd pain -vasc sx at [place] and GI doc - Dr. Lauren -last sx was 5/4 -states pain with po intake - worse when eating steak and fries and hamburgers -states wt loss because po intake causes the pain -has undergone EGD/COLO, multiple MRI/CT imaging of the abd -will obtain labs -last labs showed a cr of 1.9 -will repeat -pain control, ivf hydration, nausea control and re-eval 04/08/18 18:43 ua negative 04/08/18 18:43 pt will be signed out to the oncoming ED physician pending labs and repeat abd exam <Nanette Orozco - Last Filed: 04/19/18 01:52> *DC/Admit/Observation/Transfer - Attestations Scribe Attestion: 04/08/18 18:53 Documentation prepared by Mike Lee, acting as medical records manager for Nanette Orozco MD. <Mike Lee - Last Filed: 04/08/18 18:51> - Attestations Physician Attestion: 04/19/18 01:52 I, Dr. Nanette Orozco, DO, attest that this document has been prepared under my direction and personally reviewed by me in its entirety. I further attest, that it accurately reflects all work, treatment, procedures and medical decision -making performed by me. <Nanette Orozco - Last Filed: 04/19/18 01:52> Diagnosis at time of Disposition: Abdominal pain Qualifiers: Abdominal location: upper abdomen, unspecified Qualified Code(s): R10.10 - Upper abdominal pain, unspecified - Discharge Dispostion Disposition: TRANSFER ACUTE CARE/OTHER HOSP
[2018-04-08 18:21] VITALS: BMI 35.6
[2018-04-08 18:40] LABS: PH,URINE 5.5 (4.5-8); URINE APPEARANCE Clear; URINE BILIRUBIN Negative (NEGATIVE); URINE GLUCOSE (UA) Negative (NEGATIVE); URINE KETONE Negative (NEGATIVE); URINE LEUK ESTERASE Negative (NEGATIVE); URINE NITRITE Negative (NEGATIVE); URINE PROTEIN Negative (NEGATIVE); URINE UROBILINOGEN 0.2 (0.2-1.0)
[2018-04-08 18:41] LABS: URINE COLOR YELLOW
[2018-04-08 19:03] LABS: BASO % 0.4 % (0-2.0); EOS % 4.7 % (0-4.5); HEMATOCRIT 34.8 % (35.4-49); HEMOGLOBIN 11.1 GM/dl (11.7-16.9); LYMPH % 39.5 % (8-40); MCH 26.1 pg (25.7-33.7); MCHC 31.9 g/dl (32.0-35.9); MEAN CELL VOLUME 81.6 fl (80-96); MEAN PLT VOLUME 9.3 fl (7.5-11.1); MONO % 8.1 % (3.8-10.2); NEUT % 47.3 % (42.8-82.8); PLATELET COUNT 204 K/MM3 (134-434); RBC 4.26 M/mm3 (4.00-5.60); RDW 16.2 % (11.9-15.9); WHITE BLOOD COUNT 7.8 K/mm3 (4.0-10.8)
[2018-04-08 19:16] LABS: ALBUMIN 4.1 g/dl (3.5-5.0); ALK PHOS 44 U/L (32-92); ANION GAP 5 (8-16); BILIRUBIN,TOTAL 0.2 mg/dl (0.2-1.0); BLOOD UREA NITROGEN 24 mg/dl (7-18); CALCIUM 9.2 mg/dl (8.4-10.2); CHLORIDE 108 mmol/L (98-107); CO2 27 mmol/L (22-28); CREATININE 1.1 mg/dl (0.6-1.3); GLUCOSE,RANDOM 114 mg/dl (74-106); POTASSIUM 4.5 mmol/L (3.5-5.1); SGOT/AST 21 U/L (10-42); SGPT/ALT 13 U/L (10-40); SODIUM 140 mmol/L (136-145); TOT PROT 6.6 g/dl (6.4-8.3)
--- NOTE | 2018-04-08 19:58 | PDOC ---
*Physical Exam - Vital Signs Last Vital Signs Temp Pulse Resp BP Pulse Ox 98.6 F 87 20 140/67 100 04/08/18 17:50 04/08/18 17:50 04/08/18 17:50 04/08/18 17:50 04/08/18 17:50 ED Treatment Course - LABORATORY CBC & Chemistry Diagram: 04/08/18 18:46 04/08/18 18:46 - ADDITIONAL ORDERS Additional order review: Laboratory Results 04/08/18 04/08/18 18:46 18:28 Sodium 140 Potassium 4.5 Chloride 108 H Carbon Dioxide 27 Anion Gap 5 L BUN 24 H D Creatinine 1.1 D Creat Clearance w eGFR > 60 Random Glucose 114 H Calcium 9.2 Total Bilirubin 0.2 D AST 21 ALT 13 Alkaline Phosphatase 44 Total Protein 6.6 Albumin 4.1 Urine Color Yellow Urine Appearance Clear Urine pH 5.5 Ur Specific [place] 1.020 Urine Protein Negative Urine Glucose (UA) Negative Urine Ketones Negative Urine Blood Negative Urine Nitrite Negative Urine Bilirubin Negative Urine Urobilinogen 0.2 Ur Leukocyte Esterase Negative 04/08/18 18:46 RBC 4.26 MCV 81.6 MCHC 31.9 L RDW 16.2 H MPV 9.3 Neutrophils % 47.3 Lymphocytes % 39.5 D Monocytes % 8.1 Eosinophils % 4.7 H Basophils % 0.4 - Medications Given in the ED: ED Medications Discontinued Medications Generic Name Dose Route Start Last Admin Trade Name Freq PRN Reason Stop Dose Admin Al Hydroxide/Mg Hydroxide 30 ml 04/08/18 18:10 04/08/18 18:53 Mylanta Oral Suspension - PO 04/08/18 18:11 30 ml ONCE ONE Administration Hydromorphone HCl 2 mg 04/08/18 18:10 04/08/18 18:52 Dilaudid Injection - IVPUSH 04/08/18 18:11 2 mg ONCE ONE Administration Hydromorphone HCl 6 mg 04/08/18 19:09 04/08/18 19:11 Dilaudid Injection - IVPUSH 04/08/18 19:10 6 mg ONCE ONE Administration Lidocaine HCl 20 ml 04/08/18 18:10 04/08/18 18:53 Xylocaine 2% Viscous Oral - MM 04/08/18 18:11 20 ml ONCE ONE Administration Ondansetron HCl 4 mg 04/08/18 18:10 04/08/18 18:53 Zofran Injection IVPUSH 04/08/18 18:11 4 mg ONCE ONE Administration Simethicone 80 mg 04/08/18 18:10 04/08/18 18:53 Mylicon - PO 04/08/18 18:11 80 mg ONCE ONE Administration Sodium Chloride 1,000 ml 04/08/18 17:55 04/08/18 18:52 Normal Saline - IV 04/08/18 17:56 1,000 ml ONCE ONE Administration Progress Note - Progress Note Progress Note: Care of this patient was transferred to pr at [address] Orozco. This is a 62-year-old male who is well-known to me. Patient has a long history of chronic pain for which I see him intermittently in the emergency room and he requires high doses of Dilaudid. 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 However patient was here 2 days ago and again today for abdominal pain which is not his typical chronic pain. His typical chronic pain in his migraines and neck pain. Patient said he did have a procedure at [place] where he had what sounds like he had a procedure done for some intermittent bowel ischemia. Patient had a procedure done approximately 3 weeks ago and had been doing fine until 2 days ago when he again developed abdominal pain. Patient had a workup yesterday including labs and a CAT scan all of which were unremarkable with the exception of a creatinine 1.9 his baseline is 1.1. His CAT scan did not reveal any abnormal findings. Patient was given Dilaudid here in the emergency room as well as a GI cocktail. Labs are pending at this time. 20:00 Patient's pain is improved post additional Dilaudid that I gave him. patient has a normal white count and normal CBC Patient's LFTs are normal, his glucose is mildly elevated at 114 and his BUN is mildly elevated at 24 which is improved from 2 days ago. His creatinine is 1.1 which is also improved from 2 days ago. Patient's lactic acid is still pending. 21:00 Patient abdominal pain has resolved at this time his lactic acid however is mildly elevated at 2.6. Patient is experiencing a migraine and some neck pain so will medicate with some more Dilaudid and give him another liter of fluid and repeat the lactic acid. 23:00 The lactic acid was repeated and was 3.0. Patient will need an inpatient admission however I am going to do a CT angiogram of his abdomen to rule out SMA ischemia. 01:00 Patient's CAT scan shows some narrowing and inflammatory changes of the left gastric artery. Possible vasculitis, patient will be transferred to [facility] for further evaluation and management of probable intermittent ischemia of the stomach. *DC/Admit/Observation/Transfer Diagnosis at time of Disposition: Abdominal pain Qualifiers: Abdominal location: upper abdomen, unspecified Qualified Code(s): R10.10 - Upper abdominal pain, unspecified - Discharge Dispostion Disposition: TRANSFER ACUTE CARE/OTHER HOSP - Referrals - Patient Instructions - Post Discharge Activity
[2018-04-08 23:37] VITALS: TEMP 97.2
[2018-04-09 02:40] VITALS: BP 132/58; PULSE 81
--- NOTE | 2018-04-10 13:25 | EKG ---
Test Reason : Blood Pressure : / mmHG Vent. Rate : 078 BPM Atrial Rate : 078 BPM P-R Int : 000 ms QRS Dur : 112 ms QT Int : 400 ms P-R-T Axes : 000 -24 027 degrees QTc Int : 456 ms SINUS RHYTHM WITH 1ST DEGREE A-V BLOCK INFERIOR INFARCT , AGE UNDETERMINED ABNORMAL ECG NO PREVIOUS ECGS AVAILABLE Confirmed by MD Gomez Edward ([id number]) on 04/10/2018 1:24:39 PM Referred By: MD TROY Confirmed By:Alex Gomez MD
== END | disposition short-term general hospital (02) ==
LOC: FER 17:49
PROC: 3E0337Z Introduction of Electrolytic and Water Balance Substance into Peripheral Vein, Percutaneous Approach (ICD-10-PCS; principal; 2018-04-08)
PROC: 3E033NZ Introduction of Analgesics, Hypnotics, Sedatives into Peripheral Vein, Percutaneous Approach (ICD-10-PCS; 2018-04-08)
PROC: 3E033GC Introduction of Other Therapeutic Substance into Peripheral Vein, Percutaneous Approach (ICD-10-PCS; 2018-04-08)
DX: R10.10 Upper abdominal pain, unspecified (principal); F17.210 Nicotine dependence, cigarettes, uncomplicated; K21.9 Gastro-esophageal reflux disease without esophagitis; I25.2 Old myocardial infarction; E11.9 Type 2 diabetes mellitus without complications; Z95.5 Presence of coronary angioplasty implant and graft; E78.00 Pure hypercholesterolemia, unspecified; G89.29 Other chronic pain
CPT/HCPCS: 36415; 71045-TC-FY; 74177-TC; 75635-TC; 80053; 81003; 83605; 85025; 93005; 96374; 96375; 96376; 99283-25; J7030

== ENCOUNTER 2018-04-28 19:05 | Emergency (ER) | payer OTHER, BC ==
--- NOTE | 2018-04-28 19:10 | PDOC ---
History of Present Illness - General History Source: Patient Exam Limitations: No Limitations - History of Present Illness Initial Comments: 04/28/18 20:31 The patient is a 62 year old male, with a significant PMH of acid reflux, MD, GERD, diabetes, cholecystectomy, cardiac stents(4x), hypercholesterolemia, and severe chronic pain (migraines and left sided neck pain) who presents to the emergency department with persistent abdominal pain. Patient states the pain is sharp, and localized in the epigastrium. The patient is also complaining that his usual migraines can be triggered by his abdominal pain. He reports that the abdominal pain is preventing him from eating, and when he does eat, he notices the pain intensifies. Patient endorses significant unintentional weight loss due to his difficulty eating. Patient currently follows with a medical intern (Dr. Brooks) and had a laparoscopic release of the median arcuate ligament on March 16 at [facility] (Dr. Madrigal). The patient reports the abdominal pain has worsened since the procedure. 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 Subsequently, his medical intern did not appear to think there was a vascular problem and an H.pylori is being ruled out. The patient denies chest pain, shortness of breath, and dizziness. Denies fever, chills, nausea, vomit, diarrhea and constipation. Denies dysuria, frequency, urgency and hematuria. Allergies: prochlorperasine maleate, sumatriptan, and sumatriptan succinate Social history: No reported alcohol, drug, or cigarette use. <Lissett Tillman - Last Filed: 04/28/18 21:46> <Perla Bar - Last Filed: 04/29/18 05:42> - General Chief Complaint: Pain Stated Complaint: abd/neck pain Time Seen by Provider: 04/28/18 19:07 Past History <Lissett Tillman - Last Filed: 04/28/18 21:46> - Past Medical History Cardiac Disorders: Yes ([place]) COPD: No Diabetes: Yes GI Disorders: Yes (REFLUX) Hypercholesterolemia: Yes - Surgical History Abdominal Surgery: Yes Cardiac Surgery: Yes (STENTS X4) Cholecystectomy: Yes - Immunization History Td Vaccination: Yes TDAP Vaccination: Yes Immunization Up to Date: No - Suicide/Smoking/Psychosocial Hx Smoking Status: Yes Smoking History: Current every day smoker Years of Tobacco Use: 30 Have you smoked in the past 12 months: Yes Number of Cigarettes Smoked Daily: 20 Cigars Per Day: 0 'Breaking Loose' booklet given: 02/27/18 Hx Alcohol Use: No Drug/Substance Use Hx: No Substance Use Type: None Hx Substance Use Treatment: No <Perla Bar - Last Filed: 04/29/18 05:42> - Past Medical History Allergies/Adverse Reactions: Allergies Allergy/AdvReac Type Severity Reaction Status Date / Time prochlorperazine maleate AdvReac Intermediate Rash Verified 04/08/18 17:53 [From Compazine] sumatriptan [From Imitrex] AdvReac Mild Rash Verified 04/08/18 17:53 sumatriptan succinate AdvReac Mild Rash Verified 04/08/18 17:53 [From Imitrex] Home Medications: Ambulatory Orders Aspirin [Aspirin EC] 325 mg PO DAILY 12/29/13 Famotidine [Pepcid -] 20 mg PO HS 12/29/13 Fenofibrate [Fenofibrate -] 160 mg PO DAILY 12/29/13 Gabapentin 400 mg PO 5XD 12/29/13 Metoprolol Tartrate [Lopressor -] 25 mg PO BID 12/29/13 Oxybutynin Chloride 5 mg PO DAILY 12/29/13 Pantoprazole Sodium 40 mg PO DAILY 12/29/13 Rosuvastatin Calcium [Crestor] 40 mg PO HS 12/29/13 Metformin HCl [Glucophage] 1,000 mg PO BID 09/18/15 Aspirin/Acetaminophen/Caffeine [Excedrin Migraine Caplet] 2 each PO BID PRN Sucralfate Oral Suspension [Carafate *Oral Susp*] 1 gm PO TID 06/26/16 Sertraline HCl [Zoloft -] 75 mg PO DAILY 11/26/17 Oxycodone HCl/Acetaminophen [Endocet 7.5-325 mg Tablet] 1 - 2 each PO Q6H PRN Cholecalciferol (Vitamin D3) [Vitamin D3] 1,000 unit PO DAILY 04/05/18 Cyanocobalamin (Vitamin B-12) [Vitamin B-12] 1,000 mcg PO DAILY 04/05/18 Lipase/Protease/Amylase [Zenpep Dr 20,000 Units Capsule] 1 each PO TID 04/05/18 Valsartan [Diovan] 80 mg PO DAILY 04/05/18 Hyoscyamine Odt [Levsin Odt -] 0.125 mg SL TID #20 tab.rapdis 04/28/18 Review of Systems - Review of Systems Able to Perform ROS?: Yes Comments:: 04/28/18 20:20 All systems are reviewed and negative except as noted in the HPI <Lissett Tillman - Last Filed: 04/28/18 21:46> *Physical Exam - Vital Signs Last Vital Signs Temp Pulse Resp BP Pulse Ox 98.7 F 90 16 159/90 100 04/28/18 19:14 04/28/18 19:14 04/28/18 19:14 04/28/18 19:14 04/28/18 19:14 - Physical Exam Comments: 04/28/18 20:34 GENERAL: Awake, alert, and fully oriented, in no acute distress HEAD: No signs of trauma LUNGS: Breath sounds equal, clear to auscultation bilaterally. No wheezes, and no crackles HEART: Regular rate and rhythm, normal S1 and S2, no murmurs, rubs or gallops ABDOMEN: (+) Mild abdominal tenderness to the right of the midline of the epigastric region; Surgical wounds healing well. No guarding, no rebound. No masses NEUROLOGICAL: Cranial nerves II through XII grossly intact. Normal speech, normal gait SKIN: Warm, Dry, normal turgor, no rashes or lesions noted. <Lissett Tillman - Last Filed: 04/28/18 21:46> ED Treatment Course - Medications Given in the ED: ED Medications Discontinued Medications Generic Name Dose Route Start Last Admin Trade Name Freq PRN Reason Stop Dose Admin Hyoscyamine Sulfate 0.125 mg 04/28/18 19:28 04/28/18 19:33 Levsin Odt - PO 04/28/18 19:29 0.125 mg ONCE ONE Administration <Lissett Tillman - Last Filed: 04/28/18 21:46> Progress Note - Progress Note Progress Note: Documentation has been prepared under my direction and personally reviewed by me in its entirety. I attest that this documented accurately reflects all work, treatment, procedures and medical decision making performed by me. <Perla Bar - Last Filed: 04/29/18 05:42> Medical Decision Making - Medical Decision Making As noted above, this 62-year-old man with a long history of migraine headache/ neck pain, and relatively recent history of abdominal pain (s/p median arcuate ligament release approximately 6 weeks ago). Patient continues to have postprandial pain after his procedure and etiology of this is unclear. Tonight , he comes to the emergency room mainly because of his severe migraine headache. He is basically at baseline abdominal pain, which is significantly worse after eating. Of note, he was prescribed hyoscyamine by mouth to be taken prior to meals. He has not been adhering to this because he hyoscyamine tablets have been making him nauseated. Exam as noted Patient given Dilaudid/Benadryl for his migraine as has been done previously, with good relief of his headache and neck pain He was given hyoscyamine ODT tablet now and was able to drink "boost" supplement drink without significant nausea or increase in his abdominal pain. Prescription for Levsin 0.125 milligrams ODT transmitted to pharmacy. He is also given Dr. Deon Orona's referral information in order to have a second opinion by a vascular surgeon. He should return to the emergency room if he has persistent, severe pain or fever/vomiting <Perla Bar - Last Filed: 04/29/18 05:42> *DC/Admit/Observation/Transfer - Attestations Scribe Attestion: 04/28/18 20:34 Documentation prepared by Lissett Tillman, acting as medical information specialist for Perla Bar MD. 04/28/18 20:34 <Lissett Tillman - Last Filed: 04/28/18 21:46> <Perla Bar - Last Filed: 04/29/18 05:42> Diagnosis at time of Disposition: Migraine Abdominal pain Qualifiers: Abdominal location: epigastric Qualified Code(s): R10.13 - Epigastric pain - Discharge Dispostion Disposition: HOME Condition at time of disposition: Stable - Prescriptions Prescriptions: Hyoscyamine Odt [Levsin Odt -] 0.125 mg SL TID #20 tab.rapdis - Referrals Referrals: Deon Orona MD [Staff Physician] - - Patient Instructions Printed Discharge Instructions: DI for Abdominal Pain-Adult Additional Instructions: Levsin 0.125 mg (sublingual) prior to meals as previously directed Continue other medications as prescribed Follow-up with vascular surgeon as discussed Follow-up with your medical intern as previously planned Return to ER if you have severe, persistent pain, or you develop fever/vomiting
[2018-04-28 19:16] VITALS: BP 159/90; PULSE 90; TEMP 98.7; BMI 34.9
[2018-04-28] MEDS ORDERED: HYOSCYAMINE SULFATE 0.125 MG *ODT PO ONE (19:28)
[2018-04-28] MEDS ORDERED: HYDROmorphone HCL CARPU-JECT 2 MG/1 ML DISP.SYRIN IM ONE ×2 (20:19→21:20)
== END 2018-04-28 22:06 | disposition home or self-care (01) ==
LOC: FER 19:05
PROC: 3E033GC Introduction of Other Therapeutic Substance into Peripheral Vein, Percutaneous Approach (ICD-10-PCS; principal; 2018-04-28)
PROC: 3E033NZ Introduction of Analgesics, Hypnotics, Sedatives into Peripheral Vein, Percutaneous Approach (ICD-10-PCS; 2018-04-28)
PROC: 3E033NZ Introduction of Analgesics, Hypnotics, Sedatives into Peripheral Vein, Percutaneous Approach (ICD-10-PCS; 2018-04-28)
DX: R10.13 Epigastric pain (principal); G43.909 Migraine, unspecified, not intractable, without status migrainosus; G89.29 Other chronic pain
CPT/HCPCS: 99282-25

== ENCOUNTER 2018-07-08 20:51 | Emergency (ER) | payer OTHER, BC ==
--- NOTE | 2018-07-08 21:05 | PDOC ---
History of Present Illness - General History Source: Patient Exam Limitations: No Limitations - History of Present Illness Initial Comments: 07/08/18 22:11 The patient is a 62 year old male, with a significant PMH of acid reflux, NC, GERD, diabetes, cholecystectomy, cardiac stents(4x), hypercholesterolemia, and severe chronic pain (migraines and neck pain) who presents to the emergency department with his similar presentation of migraine and neck pain. The patient reports that he was at home earlier today when he experienced his onset of migraine and neck pain. The patient states that his pain began in his left neck and radiated down to his shoulder and left arm. The patient reports some associated numbness with his pain. The patient denies any other symptoms. He denies any fever, chills, nausea, vomit, diarrhea and constipation. He denies chest pain, shortness of breath, and dizziness. The patient denies any other complaints. A complete review of 10 out of 10 review of systems is taken and is negative apart from what is previously mentioned below and in the HPI. <Mike Lee - Last Filed: 07/08/18 22:11> <Maikol Hawkins - Last Filed: 07/09/18 00:15> - General Chief Complaint: Pain Stated Complaint: NECK PAIN & MIGRAINE Time Seen by Provider: 07/08/18 21:04 Past History <Mike Lee - Last Filed: 07/08/18 22:11> - Past Medical History Cardiac Disorders: Yes ([place]) COPD: No Diabetes: Yes GI Disorders: Yes (REFLUX) Hypercholesterolemia: Yes - Surgical History Abdominal Surgery: Yes Cardiac Surgery: Yes (STENTS X4) Cholecystectomy: Yes - Immunization History Td Vaccination: Yes TDAP Vaccination: Yes Immunization Up to Date: No - Suicide/Smoking/Psychosocial Hx Smoking Status: Yes Smoking History: Current every day smoker Years of Tobacco Use: 30 Have you smoked in the past 12 months: Yes Number of Cigarettes Smoked Daily: 20 Cigars Per Day: 0 'Breaking Loose' booklet given: 02/27/18 Hx Alcohol Use: No Drug/Substance Use Hx: No Substance Use Type: None Hx Substance Use Treatment: No <Maikol Hawkins - Last Filed: 07/09/18 00:15> - Past Medical History Allergies/Adverse Reactions: Allergies Allergy/AdvReac Type Severity Reaction Status Date / Time prochlorperazine maleate AdvReac Intermediate Rash Verified 04/08/18 17:53 [From Compazine] sumatriptan [From Imitrex] AdvReac Mild Rash Verified 04/08/18 17:53 sumatriptan succinate AdvReac Mild Rash Verified 04/08/18 17:53 [From Imitrex] Home Medications: Ambulatory Orders Aspirin [Aspirin EC] 325 mg PO DAILY 12/29/13 Famotidine [Pepcid -] 20 mg PO HS 12/29/13 Fenofibrate [Fenofibrate -] 160 mg PO DAILY 12/29/13 Gabapentin 400 mg PO 5XD 12/29/13 Metoprolol Tartrate [Lopressor -] 25 mg PO BID 12/29/13 Oxybutynin Chloride 5 mg PO DAILY 12/29/13 Pantoprazole Sodium 40 mg PO DAILY 12/29/13 Rosuvastatin Calcium [Crestor] 40 mg PO HS 12/29/13 Metformin HCl [Glucophage] 1,000 mg PO BID 09/18/15 Aspirin/Acetaminophen/Caffeine [Excedrin Migraine Caplet] 2 each PO BID PRN Sucralfate Oral Suspension [Carafate *Oral Susp*] 1 gm PO TID 06/26/16 Sertraline HCl [Zoloft -] 75 mg PO DAILY 11/26/17 Oxycodone HCl/Acetaminophen [Endocet 7.5-325 mg Tablet] 1 - 2 each PO Q6H PRN Cholecalciferol (Vitamin D3) [Vitamin D3] 1,000 unit PO DAILY 04/05/18 Cyanocobalamin (Vitamin B-12) [Vitamin B-12] 1,000 mcg PO DAILY 04/05/18 Hyoscyamine Odt [Levsin Odt -] 0.125 mg SL TID #20 tab.rapdis 04/28/18 Fludrocortisone Acetate [Florinef -] 0.1 mg PO MOWEFR 07/08/18 Review of Systems - Review of Systems Able to Perform ROS?: Yes Comments:: 07/08/18 22:12 Constitutional: No recent illness; no fever ENT: No sore throat Cardiovascular: No palpitations; no chest pain Pulmonary: No cough; no trouble breathing Gastrointestinal: No nausea; no vomiting; no diarrhea Genitourinary: No urinary problems; no hematuria Skin: No rash Lymph system: No swollen glands Musculoskeletal:(+)left neck and left arm pain. No joint swelling Neurological: (+)migraine. No weakness; oo numbness; no vertigo; no lightheadedness Psychiatric:No anxiety; no depression <Mike Lee - Last Filed: 07/08/18 22:11> *Physical Exam - Vital Signs Last Vital Signs Temp Pulse Resp BP Pulse Ox 98.4 F 66 18 168/69 99 07/08/18 20:54 07/08/18 20:54 07/08/18 20:54 07/08/18 20:54 07/08/18 20:54 - Physical Exam Comments: 07/08/18 22:12 Vitals: Triage vital signs reviewed General Appearance: No acute distress, well nourished, well developed Head: Atraumatic Eyes: Pupils equal reactive round, extraocular movement intact Neck: (+)left sided neck discomfort, typical with neck /herniated disc. good strength, Supple; No nuchal rigidity Chest Wall: Nontender Cardiac: Regular rate and rhythm, no murmurs, no rubs, no gallops Lungs: Clear to auscultation bilateral, good air movement bilaterally Extremities: Full range of motion to all extremities, no cyanosis, clubbing, or edema Skin: Warm and dry, no rashes or lesions, no rash, no petechiae Neuro: AOX3; Cranial Nerves 2-12 grossly intact, Strength intact to all extremities, Sensation intact to all extremities, gait normal <Mike Lee - Last Filed: 07/08/18 22:11> ED Treatment Course - Medications Given in the ED: ED Medications Discontinued Medications Generic Name Dose Route Start Last Admin Trade Name Kiranq PRN Reason Stop Dose Admin Diphenhydramine HCl 25 mg 07/08/18 21:46 07/08/18 22:03 Benadryl Injection - IM 07/08/18 21:47 25 mg ONCE ONE Administration Hydromorphone HCl 6 mg 07/08/18 21:45 07/08/18 22:00 Dilaudid Injection - IM 07/08/18 21:46 6 mg ONCE ONE Administration <Mike Lee - Last Filed: 07/08/18 22:11> Medical Decision Making - Medical Decision Making 08/26/18 22:13 The patient is a 62 year old male, with a significant PMH of acid reflux, NC, GERD, diabetes, cholecystectomy, cardiac stents(4x), hypercholesterolemia, and severe chronic pain (migraines and neck pain) who presents to the emergency department with his similar presentation of migraine and neck pain. the patient will receive pain medication. <Mike Lee - Last Filed: 07/08/18 22:11> - Medical Decision Making Exacerbation of chronic next pain no chest pain or shortness of breath patient states pain symptoms are typical of his chronic exacerbations Status post IM Dilaudid and Benadryl patient feels much better states he is able to return home will follow-up his doctor this week Findings, the need for follow-up and strict return instructions discussed patient. <Maikol Hawkins - Last Filed: 07/09/18 00:15> *DC/Admit/Observation/Transfer - Attestations Scribe Attestion: 07/08/18 22:13 Documentation prepared by Mike eLe, acting as medical supply technician for Maikol Hawkins MD. <Mike Lee - Last Filed: 07/08/18 22:11> - Discharge Dispostion Decision to Admit order: No <Maikol Hawkins - Last Filed: 07/09/18 00:15> Diagnosis at time of Disposition: Neck pain, musculoskeletal - Discharge Dispostion Disposition: HOME Condition at time of disposition: Good - Referrals Referrals: Sree Briones MD [Primary Care Provider] - - Patient Instructions Printed Discharge Instructions: Chronic Neck Pain Additional Instructions: Follow up with your doctor tomorrow. Return to ED for any severe worsening symptoms or for any concerns. - Post Discharge Activity
[2018-07-08 21:07] VITALS: BP 168/69; PULSE 66; TEMP 98.4; BMI 34.9
[2018-07-08] MEDS ORDERED: HYDROmorphone HCL CARPU-JECT 2 MG/1 ML DISP.SYRIN IM ONE (21:45)
[2018-07-08] MEDS ORDERED: HYDROmorphone HCL CARPU-JECT 2 MG/1 ML DISP.SYRIN ONE (21:53)
== END 2018-07-08 22:40 | disposition home or self-care (01) ==
LOC: FER 20:51
PROC: 3E023GC Introduction of Other Therapeutic Substance into Muscle, Percutaneous Approach (ICD-10-PCS; principal; 2018-07-08)
PROC: 3E023NZ Introduction of Analgesics, Hypnotics, Sedatives into Muscle, Percutaneous Approach (ICD-10-PCS; 2018-07-08)
DX: M54.2 Cervicalgia (principal); M79.1 Myalgia
CPT/HCPCS: 99282-25

== ENCOUNTER 2018-08-10 20:58 | Emergency (ER) | payer OTHER, BC ==
[2018-08-10 21:27] VITALS: BP 162/70; PULSE 63; TEMP 98.3; BMI 34.9
[2018-08-10] MEDS ORDERED: HYDROmorphone HCL CARPU-JECT 2 MG/1 ML DISP.SYRIN IM ONE ×2 (21:27→23:05)
--- NOTE | 2018-08-10 21:28 | PDOC ---
History of Present Illness - General Chief Complaint: Migraine Headache Stated Complaint: NECK BACK PAIN, MIGRAINE Time Seen by Provider: 08/10/18 21:01 - History of Present Illness Initial Comments: This 62-year-old man with long history of migraine/neck pain as well as CAD/DM/ HLD/GERD, well-known to this ER, presents with usual episode of migraine headache. Patient describes a pattern of neck pain radiating to the left side of his head and resulting in severe migraine headache with photophobia. Patient states that he attempted using his home medications for pain relief but pain continued. No new symptoms reported. Patient had recent weight loss secondary to abdominal pain for several months. 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 Past History - Past Medical History Allergies/Adverse Reactions: Allergies Allergy/AdvReac Type Severity Reaction Status Date / Time prochlorperazine maleate AdvReac Intermediate Rash Verified 08/10/18 21:01 [From Compazine] sumatriptan [From Imitrex] AdvReac Mild Rash Verified 08/10/18 21:01 sumatriptan succinate AdvReac Mild Rash Verified 08/10/18 21:01 [From Imitrex] Home Medications: Ambulatory Orders Aspirin [Aspirin EC] 325 mg PO DAILY 12/29/13 Famotidine [Pepcid -] 20 mg PO HS 12/29/13 Fenofibrate [Fenofibrate -] 160 mg PO DAILY 12/29/13 Gabapentin 400 mg PO 5XD 12/29/13 Metoprolol Tartrate [Lopressor -] 25 mg PO BID 12/29/13 Oxybutynin Chloride 5 mg PO DAILY 12/29/13 Pantoprazole Sodium 40 mg PO DAILY 12/29/13 Rosuvastatin Calcium [Crestor] 40 mg PO HS 12/29/13 Metformin HCl [Glucophage] 1,000 mg PO BID 09/18/15 Aspirin/Acetaminophen/Caffeine [Excedrin Migraine Caplet] 2 each PO BID PRN Sucralfate Oral Suspension [Carafate *Oral Susp*] 1 gm PO TID 06/26/16 Sertraline HCl [Zoloft -] 75 mg PO DAILY 11/26/17 Oxycodone HCl/Acetaminophen [Endocet 7.5-325 mg Tablet] 1 - 2 each PO Q6H PRN Cholecalciferol (Vitamin D3) [Vitamin D3] 1,000 unit PO DAILY 04/05/18 Cyanocobalamin (Vitamin B-12) [Vitamin B-12] 1,000 mcg PO DAILY 04/05/18 Fludrocortisone Acetate [Florinef -] 0.1 mg PO MOWEFR 07/08/18 Cardiac Disorders: Yes ([place]) COPD: No Diabetes: Yes GI Disorders: Yes (REFLUX) Hypercholesterolemia: Yes - Surgical History Abdominal Surgery: Yes Cardiac Surgery: Yes (STENTS X4) Cholecystectomy: Yes GI Surgery: Yes (ABD SURGURY) - Immunization History Td Vaccination: Yes TDAP Vaccination: Yes Immunization Up to Date: No - Suicide/Smoking/Psychosocial Hx Smoking Status: Yes Smoking History: Never smoked Years of Tobacco Use: 30 Have you smoked in the past 12 months: Yes Number of Cigarettes Smoked Daily: 20 Cigars Per Day: 0 Information on smoking cessation initiated: Yes 'Breaking Loose' booklet given: 08/10/18 Hx Alcohol Use: No Drug/Substance Use Hx: No Substance Use Type: None Hx Substance Use Treatment: No Review of Systems - Review of Systems Able to Perform ROS?: Yes Comments:: 12 point review of systems is negative except for what is noted in the history of present illness *Physical Exam - Vital Signs Last Vital Signs Temp Pulse Resp BP Pulse Ox 98.3 F 63 20 162/70 100 08/10/18 20:58 08/10/18 20:58 08/10/18 20:58 08/10/18 20:58 08/10/18 20:58 - Physical Exam Comments: GENERAL: Adult male, in moderate distress secondary to neck pain/migraine headache HEAD: Normal with no signs of trauma. EYES: PERRLA, EOMI, sclera anicteric, conjunctiva clear. ENT: Ears normal, nares patent, oropharynx clear without exudates. Dry mucous membranes. NECK: Normal range of motion, supple without lymphadenopathy, JVD, or masses. Left-sided paraspinal cervical muscle tenderness LUNGS: Breath sounds equal, clear to auscultation bilaterally. No wheezes, and no crackles. HEART:Regular rate and rhythm, normal S1 and S2 without murmur, rub or gallop. ABDOMEN:.normal bowel sounds No guarding,tenderness or rebound.No masses No distention. EXTREMITIES: Normal range of motion, no edema. No clubbing or cyanosis. No erythema, or tenderness. NEUROLOGICAL: Cranial nerves II through XII grossly intact. Normal speech. No focal neurological deficits. MUSCULOSKELETAL: Back non-tender to palpation, no CVA tenderness SKIN: Warm, Dry, normal turgor, no rashes or lesions noted. Progress Note - Progress Note Progress Note: Patient received Dilaudid 6 mg IM/Benadryl 50 mg IM for relief of his migraine headache. After approximately one hour, patient had partial relief of headache pain. Additional 4 mg Dilaudid IM administered. After second dose of Dilaudid IM, the patient had complete relief of headache pain; no nausea or other associated symptoms present, photophobia has resolved. The patient will be discharged with instructions to continue his medications as previously prescribed. He will return to the emergency room if he has recurrent headache or develops new or acute symptoms *DC/Admit/Observation/Transfer Diagnosis at time of Disposition: Migraine - Discharge Dispostion Disposition: HOME Condition at time of disposition: Stable - Referrals - Patient Instructions Additional Instructions: continue medications as prescribed followup with your physicians as scheduled return to the ER as needed for intractable pain/headache - Post Discharge Activity
[2018-08-10] MEDS ORDERED: HYDROmorphone HCL CARPU-JECT 2 MG/1 ML DISP.SYRIN ONE ×2 (21:32→23:07)
== END 2018-08-10 23:34 | disposition home or self-care (01) ==
LOC: FER 20:58
PROC: 3E023GC Introduction of Other Therapeutic Substance into Muscle, Percutaneous Approach (ICD-10-PCS; principal; 2018-08-10)
PROC: 3E023NZ Introduction of Analgesics, Hypnotics, Sedatives into Muscle, Percutaneous Approach (ICD-10-PCS; 2018-08-10)
DX: G43.909 Migraine, unspecified, not intractable, without status migrainosus (principal)
CPT/HCPCS: 96372; 99281-25

== ENCOUNTER 2018-09-16 20:41 | Emergency (ER) | payer OTHER, BC ==
[2018-09-16 21:11] VITALS: BP 164/76; PULSE 65; TEMP 98; BMI 36.3
[2018-09-16] MEDS ORDERED: HYDROmorphone HCL CARPU-JECT 2 MG/1 ML DISP.SYRIN IM ONE ×2 (21:13→22:41)
[2018-09-16] MEDS ORDERED: HYDROmorphone HCL CARPU-JECT 2 MG/1 ML DISP.SYRIN ONE ×2 (21:16→22:43)
--- NOTE | 2018-09-16 21:16 | PDOC ---
History of Present Illness - General Chief Complaint: Pain Stated Complaint: MIGRAINE & LEFT NECK PAIN Time Seen by Provider: 09/16/18 20:45 - History of Present Illness Initial Comments: This 62-year-old man with multiple medical problems and a long history of migraine headaches, left-sided neck pain and left shoulder/arm pain presents with a one-day history of migraine and left upper extremity pain. Pain persisted despite using his usual at-home medications. Patient is unsure what triggered the current episode, however recently the frequency of his cervical facet joint injections by his pain management doctor () have decreased. He is currently overdue for an injection which was scheduled for July of this year. The procedure is scheduled now for September 28. Past History - Past Medical History Allergies/Adverse Reactions: Allergies Allergy/AdvReac Type Severity Reaction Status Date / Time prochlorperazine maleate AdvReac Intermediate Rash Verified 09/16/18 20:50 [From Compazine] sumatriptan [From Imitrex] AdvReac Mild Rash Verified 09/16/18 20:50 sumatriptan succinate AdvReac Mild Rash Verified 09/16/18 20:50 [From Imitrex] Home Medications: Ambulatory Orders Aspirin [Aspirin EC] 325 mg PO DAILY 12/29/13 Famotidine [Pepcid -] 20 mg PO HS 12/29/13 Fenofibrate [Fenofibrate -] 160 mg PO DAILY 12/29/13 Gabapentin 400 mg PO 5XD 12/29/13 Metoprolol Tartrate [Lopressor -] 25 mg PO BID 12/29/13 Oxybutynin Chloride 5 mg PO DAILY 12/29/13 Pantoprazole Sodium 40 mg PO DAILY 12/29/13 Rosuvastatin Calcium [Crestor] 40 mg PO HS 12/29/13 Metformin HCl [Glucophage] 1,000 mg PO BID 09/18/15 Aspirin/Acetaminophen/Caffeine [Excedrin Migraine Caplet] 2 each PO BID PRN Sucralfate Oral Suspension [Carafate *Oral Susp*] 1 gm PO TID 06/26/16 Sertraline HCl [Zoloft -] 75 mg PO DAILY 11/26/17 Oxycodone HCl/Acetaminophen [Endocet 7.5-325 mg Tablet] 1 - 2 each PO Q6H PRN Cholecalciferol (Vitamin D3) [Vitamin D3] 1,000 unit PO DAILY 04/05/18 Cyanocobalamin (Vitamin B-12) [Vitamin B-12] 1,000 mcg PO DAILY 04/05/18 Fludrocortisone Acetate [Florinef -] 0.1 mg PO MOWEFR 07/08/18 Cardiac Disorders: Yes ([place]) COPD: No Diabetes: Yes GI Disorders: Yes (REFLUX) Hypercholesterolemia: Yes - Surgical History Abdominal Surgery: Yes Cardiac Surgery: Yes (STENTS X4) Cholecystectomy: Yes GI Surgery: Yes (ABD SURGURY) - Immunization History Td Vaccination: Yes TDAP Vaccination: Yes Immunization Up to Date: No - Suicide/Smoking/Psychosocial Hx Smoking Status: Yes Smoking History: Current every day smoker Years of Tobacco Use: 30 Have you smoked in the past 12 months: Yes Number of Cigarettes Smoked Daily: 20 Cigars Per Day: 0 Information on smoking cessation initiated: Yes 'Breaking Loose' booklet given: 08/10/18 Hx Alcohol Use: No Drug/Substance Use Hx: No Substance Use Type: None Hx Substance Use Treatment: No Review of Systems - Review of Systems Able to Perform ROS?: Yes Comments:: 12 point review of systems is negative except for what is noted in the history of present illness *Physical Exam - Vital Signs Last Vital Signs Temp Pulse Resp BP Pulse Ox 98 F 65 16 164/76 100 09/16/18 21:05 09/16/18 21:05 09/16/18 21:05 09/16/18 21:05 09/16/18 21:05 - Physical Exam Comments: GENERAL: Adult male, holding left side of face, in distress secondary to headache/neck pain HEAD: Normal with no signs of trauma. EYES: PERRLA, EOMI, sclera anicteric, conjunctiva clear. ENT: Ears normal, nares patent, oropharynx clear without exudates. Dry mucous membranes. NECK: Normal range of motion, supple without lymphadenopathy, JVD, or masses. Tenderness left-sided paraspinal muscle/trapezius muscle EXTREMITIES: Normal range of motion, no edema. No clubbing or cyanosis. No erythema, or tenderness. NEUROLOGICAL: Cranial nerves II through XII grossly intact. Normal speech. No focal neurological deficits. SKIN: Warm, Dry, normal turgor, no rashes or lesions noted. Medical Decision Making - Medical Decision Making Patient receives 6 mg Dilaudid IM with 50 mg of Benadryl IM. Patient had significant relief in his headache pain but had some residual left shoulder pain. Additional 2 mg Dilaudid IM administered. After second dose of Dilaudid, patient had marked decrease in shoulder pain. Patient discharged with instructions to continue medications as previously prescribed. 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 If he has any severe migraine/neck/arm pain that persists despite outpatient medication, he should return to the ER *DC/Admit/Observation/Transfer Diagnosis at time of Disposition: Migraine - Discharge Dispostion Disposition: HOME Condition at time of disposition: Stable - Referrals Referrals: Sree Briones MD [Primary Care Provider] - - Patient Instructions Printed Discharge Instructions: Migraine -- Adult Additional Instructions: Continue medications as prescribed Follow up with Dr Briones as scheduled later this month Return to ER if you have severe pain/persistent headache - Post Discharge Activity
== END 2018-09-16 23:18 | disposition home or self-care (01) ==
LOC: FER 20:41
PROC: 3E023GC Introduction of Other Therapeutic Substance into Muscle, Percutaneous Approach (ICD-10-PCS; principal; 2018-09-16)
PROC: 3E023NZ Introduction of Analgesics, Hypnotics, Sedatives into Muscle, Percutaneous Approach (ICD-10-PCS; 2018-09-16)
PROC: 3E023NZ Introduction of Analgesics, Hypnotics, Sedatives into Muscle, Percutaneous Approach (ICD-10-PCS; 2018-09-16)
DX: G43.909 Migraine, unspecified, not intractable, without status migrainosus (principal); F17.210 Nicotine dependence, cigarettes, uncomplicated; K21.9 Gastro-esophageal reflux disease without esophagitis; E78.00 Pure hypercholesterolemia, unspecified; E11.9 Type 2 diabetes mellitus without complications; I25.2 Old myocardial infarction
CPT/HCPCS: 99281-25

== ENCOUNTER 2018-09-28 21:45 | Emergency (ER) | payer OTHER, BC ==
[2018-09-28 21:51] VITALS: BP 137/69; PULSE 68; TEMP 98.1; BMI 36.3
[2018-09-28] MEDS ORDERED: LIDOCAINE PATCH REMOVAL MC SCH (22:00)
[2018-09-28] MEDS ORDERED: HYDROmorphone HCL CARPU-JECT 1 MG/1 ML DISP.SYRIN IM ONE (22:07)
[2018-09-28] MEDS ORDERED: HYDROmorphone HCL CARPU-JECT 2 MG/1 ML DISP.SYRIN ONE (22:23)
[2018-09-28] MEDS ORDERED: LIDOCAINE 5% TOPICAL PATCH TP ONE (22:29)
--- NOTE | 2018-09-28 22:39 | PDOC ---
History of Present Illness - General Chief Complaint: Pain, Acute Stated Complaint: NECK PAIN/MIGRAINE Time Seen by Provider: 09/28/18 22:05 History Source: Patient Exam Limitations: No Limitations - History of Present Illness Initial Comments: 09/28/18 22:33 Mr Mayen 62-year-old man with PMHx CAD/DM/HLD/GERD and a long history of migraine headaches, cervical neuralgia and degenerative disc disease with frequent trigger point injections p/w acute on chronic left-sided headache, neck pain and left shoulder/arm pain x 2-3 days, a/w sharp shooting pains and mild numbness over neck/back. Sx present chronically, worsening x 2 weeks with movement. Yesterday, he was shoveling snow and exerting himself, triggering sx today. Pain persisted despite using his usual at-home medications (percocet). Pt had cancelled appt today for trigger point injection, usually gets the frequency of his cervical facet joint injections by his pain management doctor ( ), last appt 6 months ago. no new trauma or falls no f/c, cp, sob, araujo, dizziness. no gait instability or weakness. Past History - Past Medical History Allergies/Adverse Reactions: Allergies Allergy/AdvReac Type Severity Reaction Status Date / Time prochlorperazine maleate AdvReac Intermediate Rash Verified 09/16/18 20:50 [From Compazine] sumatriptan [From Imitrex] AdvReac Mild Rash Verified 09/16/18 20:50 sumatriptan succinate AdvReac Mild Rash Verified 09/16/18 20:50 [From Imitrex] Home Medications: Ambulatory Orders Aspirin [Aspirin EC] 325 mg PO DAILY 12/29/13 Famotidine [Pepcid -] 20 mg PO HS 12/29/13 Fenofibrate [Fenofibrate -] 160 mg PO DAILY 12/29/13 Gabapentin 400 mg PO 5XD 12/29/13 Metoprolol Tartrate [Lopressor -] 25 mg PO BID 12/29/13 Oxybutynin Chloride 5 mg PO DAILY 12/29/13 Pantoprazole Sodium 40 mg PO DAILY 12/29/13 Rosuvastatin Calcium [Crestor] 40 mg PO HS 12/29/13 Metformin HCl [Glucophage] 1,000 mg PO BID 09/18/15 Aspirin/Acetaminophen/Caffeine [Excedrin Migraine Caplet] 2 each PO BID PRN Sucralfate Oral Suspension [Carafate *Oral Susp*] 1 gm PO TID 06/26/16 Sertraline HCl [Zoloft -] 75 mg PO DAILY 11/26/17 Oxycodone HCl/Acetaminophen [Endocet 7.5-325 mg Tablet] 1 - 2 each PO Q6H PRN Cholecalciferol (Vitamin D3) [Vitamin D3] 1,000 unit PO DAILY 04/05/18 Cyanocobalamin (Vitamin B-12) [Vitamin B-12] 1,000 mcg PO DAILY 04/05/18 Fludrocortisone Acetate [Florinef -] 0.1 mg PO MOWEFR 07/08/18 Cyclobenzaprine HCl [Flexeril 10 mg] 10 mg PO TID PRN #15 tablet 09/28/18 Lidocaine 5% Patch [Lidoderm Patch -] 1 patch TP DAILY #7 patch 09/28/18 Cardiac Disorders: Yes ([place]) COPD: No Diabetes: Yes GI Disorders: Yes (REFLUX) Hypercholesterolemia: Yes Other medical history: MIGRAINES/CHRONIC PAIN - Surgical History Abdominal Surgery: Yes Cardiac Surgery: Yes (STENTS X4) Cholecystectomy: Yes GI Surgery: Yes (ABD SURGURY) - Immunization History Td Vaccination: Yes TDAP Vaccination: Yes Immunization Up to Date: No - Suicide/Smoking/Psychosocial Hx Smoking Status: Yes Smoking History: Current every day smoker Years of Tobacco Use: 30 Have you smoked in the past 12 months: Yes Number of Cigarettes Smoked Daily: 20 Cigars Per Day: 0 Information on smoking cessation initiated: Yes 'Breaking Loose' booklet given: 08/10/18 Hx Alcohol Use: No Drug/Substance Use Hx: No Substance Use Type: None Hx Substance Use Treatment: No *Physical Exam - Vital Signs Last Vital Signs Temp Pulse Resp BP Pulse Ox 98.1 F 68 16 137/69 100 09/28/18 21:45 09/28/18 21:45 09/28/18 21:45 09/28/18 21:45 09/28/18 21:45 - Physical Exam Comments: 09/28/18 22:34 General: Well appearing, awake and alert, NAD. HEENT: NCAT, PERRL, EOMI, clear conjunctiva, anicteric, moist mucus membranes, clear oropharynx, no oral lesions.. +left occipital TTP, point tenderness. Neck: neck supple, Left sided paravertebral TTP, spasms. Resp: CTAB, normal and even respirations, no respiratory distress CVS: RRR, no murmurs, 2+ peripheral pulses throughout, no peripheral edema Abdomen: soft, NTND, no peritoneal signs. Back: +left upper scapular/upper back TTP, +point tenderness over scapula. normal inspection and ROM MSK: no edema, [place] x4, ROM intact. normal bulk and tone. shoulder abduction/adduction/flexion/extension and prox strength 5/5 actively against resistance. 5/5 shoulder shrug strength. deltoid sensation intact; sensation grossly intact in median/radial/ulnar distribution. distal veterinary medicine doctor strength 5/5. 2+ radialis pulses bilaterally and symmetric. Neuro: alert, oriented appropriately; no focal neurologic deficits. gait stable Skin: warm and well perfused, cap refill <2 sec, normal color ED Treatment Course - Medications Given in the ED: ED Medications Discontinued Medications Generic Name Dose Route Start Last Admin Trade Name Héctor PRN Reason Stop Dose Admin Diphenhydramine HCl 50 mg 09/28/18 22:22 09/28/18 22:27 Benadryl Injection - IM 09/28/18 22:23 50 mg ONCE ONE Administration Hydromorphone HCl 6 mg 09/28/18 22:07 09/28/18 22:27 Dilaudid Injection - IM 09/28/18 22:08 6 mg ONCE ONE Administration Medical Decision Making - Medical Decision Making 09/28/18 22:36 Vitals wnl, reassuring. No fever. Moderate pain on left side, in dark room. Sx typical of his migraine/chronic cervical pain/degenerative disease. no focal neuro deficits, low utility for CT imaging at this time. ED course: Patient receives 6 mg Dilaudid IM with 50 mg of Benadryl IM. which usually works for his chronic pain. Given additional lidoderm patch and flexeril for muscle relaxant/as he has neck stiffness due to cervical spasms on left side. Patient had significant relief in his headache pain but had some residual left shoulder pain. After second dose of Dilaudid, patient had marked decrease in shoulder pain. Patient discharged with instructions to continue medications as previously prescribed. He will follow-up with his painting worker and schedule cervical spine facet injection. If he has any severe migraine/neck/arm pain that persists despite outpatient medication, he should return to the ER Patient receives 6 mg Dilaudid IM with 50 mg of Benadryl IM. after tx with additional flexeril/lidoderm, patient had marked decrease in shoulder pain. Patient discharged with instructions to continue medications as previously prescribed. He will follow-up with his painting worker Dr. Briones for the scheduled cervical spine facet injection. If he has any severe migraine /neck/arm pain that persists despite outpatient medication, he should return to the ER 09/28/18 23:36 *DC/Admit/Observation/Transfer Diagnosis at time of Disposition: Cervical pain (neck), Headache - Discharge Dispostion Disposition: HOME Condition at time of disposition: Stable Decision to Admit order: No - Prescriptions Prescriptions: Cyclobenzaprine HCl [Flexeril 10 mg] 10 mg PO TID PRN #15 tablet PRN Reason: Muscle Spasms Lidocaine 5% Patch [Lidoderm Patch -] 1 patch TP DAILY #7 patch - Referrals Referrals: Sree Briones MD [Non Staff, Medical] - - Patient Instructions Printed Discharge Instructions: DI for Thoracic Back Pain, DI for Chronic Neck Pain Additional Instructions: you received medications for your migraine/headache/neck pain you were additionally given the following: dilaudid injection, benadryl injection, flexeril and lidoderm patch; similar medications will be sent to your pharmacy please follow up with Dr. Briones for your cervical facet injections return if worsening symptoms avoid strenuous activities, exertion or heavy lifting, as that may precipitate your symptoms. - Post Discharge Activity
[2018-09-28] MEDS ORDERED: LIDOCAINE 5% TOPICAL PATCH ONE (22:45)
[2018-09-28] MEDS ORDERED: CYCLOBENZAPRINE HCL 10 MG TABLET (FP) ONE (22:45)
[2018-09-29] MEDS ORDERED: CYCLOBENZAPRINE HCL 5 MG TABLET PO SCH (10:00)
== END 2018-09-28 23:45 | disposition home or self-care (01) ==
LOC: FER 21:45
PROC: 3E023NZ Introduction of Analgesics, Hypnotics, Sedatives into Muscle, Percutaneous Approach (ICD-10-PCS; principal; 2018-09-28)
PROC: 3E023GC Introduction of Other Therapeutic Substance into Muscle, Percutaneous Approach (ICD-10-PCS; 2018-09-28)
DX: M54.2 Cervicalgia (principal); R51 Headache; G89.29 Other chronic pain; I25.10 Atherosclerotic heart disease of native coronary artery without angina pectoris; E11.9 Type 2 diabetes mellitus without complications; E78.5 Hyperlipidemia, unspecified; K21.9 Gastro-esophageal reflux disease without esophagitis; F17.210 Nicotine dependence, cigarettes, uncomplicated; Z95.5 Presence of coronary angioplasty implant and graft; Z79.82 Long term (current) use of aspirin; Z79.84 Long term (current) use of oral hypoglycemic drugs
CPT/HCPCS: 99282-25

== ENCOUNTER 2018-11-09 18:04 | Emergency (ER) | payer OTHER, BC ==
--- NOTE | 2018-11-09 18:18 | PDOC ---
History of Present Illness - General Chief Complaint: Headache Stated Complaint: migraine head ache,left shoulder pain,nausea Time Seen by Provider: 11/09/18 18:09 - History of Present Illness Initial Comments: 11/09/18 18:18 The patient is a 63 year old male with a history of HLD, DM, CAD, GERD, Migraines, Chronic Pain who presents for evaluation of left sided neck and shoulder pain and headache. The patient notes that he has a long history of chronic pain and migraines. He notes that he experienced worsening pain over the past 6 hours with associated worsening migraine headache with photophobia and phonophobia prompting his presentation to the ED for further evaluation. He states that he follows with a pain management physician Dr. Briones but has been unable to follow with him in a while. He states that his symptoms feel typical of his normal migraines and pain exacerbations. He otherwise denies fevers, chills, SOB, chest pain, vomiting, abdominal pain, or changes with urination or bowel movements. Past History - Past Medical History Allergies/Adverse Reactions: Allergies Allergy/AdvReac Type Severity Reaction Status Date / Time prochlorperazine maleate AdvReac Intermediate Rash Verified 11/09/18 18:21 [From Compazine] sumatriptan [From Imitrex] AdvReac Mild Rash Verified 11/09/18 18:21 sumatriptan succinate AdvReac Mild Rash Verified 11/09/18 18:21 [From Imitrex] Home Medications: Ambulatory Orders Aspirin [Aspirin EC] 325 mg PO DAILY 12/29/13 Famotidine [Pepcid -] 20 mg PO HS 12/29/13 Fenofibrate [Fenofibrate -] 160 mg PO DAILY 12/29/13 Gabapentin 400 mg PO 5XD 12/29/13 Metoprolol Tartrate [Lopressor -] 25 mg PO BID 12/29/13 Oxybutynin Chloride 5 mg PO DAILY 12/29/13 Pantoprazole Sodium 40 mg PO DAILY 12/29/13 Rosuvastatin Calcium [Crestor] 40 mg PO HS 12/29/13 Metformin HCl [Glucophage] 1,000 mg PO BID 09/18/15 Aspirin/Acetaminophen/Caffeine [Excedrin Migraine Caplet] 2 each PO BID PRN Sucralfate Oral Suspension [Carafate *Oral Susp*] 1 gm PO QID 06/26/16 Oxycodone HCl/Acetaminophen [Endocet 7.5-325 mg Tablet] 1 - 2 each PO Q6H PRN Cholecalciferol (Vitamin D3) [Vitamin D3] 1,000 unit PO DAILY 04/05/18 Cyanocobalamin (Vitamin B-12) [Vitamin B-12] 1,000 mcg PO DAILY 04/05/18 Gabapentin 400 mg PO ASDIR 11/09/18 Cardiac Disorders: Yes ([place]) COPD: No Diabetes: Yes GI Disorders: Yes (REFLUX) Hypercholesterolemia: Yes - Surgical History Abdominal Surgery: Yes Cardiac Surgery: Yes (STENTS X4) Cholecystectomy: Yes GI Surgery: Yes (ABD SURGURY) - Immunization History Td Vaccination: Yes TDAP Vaccination: Yes Immunization Up to Date: No - Suicide/Smoking/Psychosocial Hx Smoking Status: Yes Smoking History: Current every day smoker Years of Tobacco Use: 30 Have you smoked in the past 12 months: Yes Number of Cigarettes Smoked Daily: 20 Cigars Per Day: 0 'Breaking Loose' booklet given: 08/10/18 Hx Alcohol Use: No Drug/Substance Use Hx: No Substance Use Type: None Hx Substance Use Treatment: No Review of Systems - Review of Systems Comments:: 11/09/18 18:22 Constitutional: No fevers, chills, fatigue, malaise HEENT: No Rhinorrhea, nasal congestion, visual changes Cardiovascular: No chest pain, syncope, palpitations, lightheadedness Respiratory: No Cough, SOB, Hemoptysis, Gastrointestinal: Nausea. No Abdominal pain, Vomiting, Constipation, Diarrhea, Melena Genitourinary: No Dysuria, Frequency, Urgency, Hesitancy, Hematuria, Flank pain Musculoskeletal: Left neck pain. Left Shoulder pain. No Myalgia, arthralgia Skin: No rashes, itching, bruising, pallor Neurologic: Headache. No Dizziness, Numbness, Weakness, or Tingling Psychiatric: No Hallucinations. No SI or HI *Physical Exam - Physical Exam Comments: 11/09/18 18:26 General Appearance: Nourished. No Apparent Distress HEENT: EOMI, ERIKA. No Pharyngeal Erythema, Tonsillar Exudate, Tonsillar Erythema Neck: No Cervical Lymphadenopathy Respiratory/Chest: Lungs Clear, Normal Breath Sounds. No Crackles, Rales, Rhonchi, Wheezing Cardiovascular: Regular Rhythm, Regular Rate. No Murmur, Gallops, Rubs Gastrointestinal/Abdominal: Normal Bowel Sounds, Soft. 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 Medical Decision Making - Medical Decision Making 11/09/18 18:26 The patient is a 63 year old male with a history of HLD, DM, CAD, GERD, Migraines, Chronic Pain who presents for evaluation of left sided neck and shoulder pain and headache. Given the patient's history and physical exam, it is likely the patient's symptoms are consistent with his typical migraines and chronic pain exacerbations. Given his physical exam, we do not believe further imaging is needed at this time. The patient states that he usually is treated with diluadid and benadryl. We will treat the patient with 6 mg dialuadid and 50 of IM benadryl. We will continue to monitor and reassess while here in the ED. 11/09/18 19:00 Patient signed out to the night team pending reassessment after medicating the patient. *DC/Admit/Observation/Transfer Diagnosis at time of Disposition: Migraine Chronic pain Qualifiers: Chronic pain type: other chronic pain Qualified Code(s): G89.29 - Other chronic pain - Discharge Dispostion Disposition: HOME Condition at time of disposition: Stable - Referrals Referrals: Sree Briones MD [Non Staff, Medical] - - Patient Instructions Printed Discharge Instructions: DI for Migraine, Smoking Cessation Additional Instructions: Please return to the ER if you experience concerning or worsening symptoms including worsening difficulty breathing, weakness, or chest pain, numbness, weakness, vomiting. Please call to schedule a follow up appointment with your primary care provider and your pain management physician Dr. Briones within 2-3 days to discuss your ER visit and further management of your symptoms. - Post Discharge Activity
[2018-11-09 18:19] VITALS: BP 149/69; PULSE 72; TEMP 98.5; BMI 13.0
[2018-11-09] MEDS ORDERED: HYDROmorphone HCL CARPU-JECT 2 MG/1 ML DISP.SYRIN IM ONE (18:30)
[2018-11-09] MEDS ORDERED: HYDROmorphone HCL CARPU-JECT 2 MG/1 ML DISP.SYRIN ONE ×2 (18:34→19:43)
--- NOTE | 2018-11-09 18:38 | PDOC ---
"Attending Attestation - Resident Resident Name: Carlitos Hoyos - ED Attending Attestation I have performed the following: I have examined & evaluated the patient, The case was reviewed & discussed with the resident, I agree w/resident's findings & plan, Exceptions are as noted - HPI HPI: 11/09/18 18:31 63 year old male with past medical history of coronary disease, diabetes, hyperlipidemia, GERD, cervical disc disease and neuralgia and frequent left- sided headaches presents with acute on chronic left-sided headaches. Patient reports that the pain is exactly like his prior flareups. Reports that this is his migraines. Patient states that he's having difficulty getting appointments with his pain doctor. However, is attempting get one in November. - Physicial Exam PE: 11/09/18 18:32 GENERAL: Awake, alert, and fully oriented, in no acute distress HEAD: No signs of trauma EYES: EOMI, sclera anicteric, conjunctiva clear ENT: Auricles normal inspection, hearing grossly normal, nares patent, Moist mucosa NECK: Normal ROM, supple, left sided neck discomfort LUNGS: Breath sounds equal, clear to auscultation bilaterally. No wheezes, and no crackles HEART: Regular rate and rhythm, normal S1 and S2, no murmurs, rubs or gallops ABDOMEN: Soft, nontender, No guarding, no rebound. No masses EXTREMITIES: Normal range of motion, no edema. No clubbing or cyanosis. No cords, erythema, or tenderness NEUROLOGICAL: Cranial nerves II through XII grossly intact. Normal speech, normal gait SKIN: Warm, Dry, normal turgor, no rashes or lesions noted. - Medical Decision Making 11/09/18 18:34 Vital Signs Temp Pulse Resp BP Pulse Ox 98.5 F 72 18 149/69 99 11/09/18 18:05 11/09/18 18:05 11/09/18 18:05 11/09/18 18:05 11/09/18 18:05 This is acute on chronic back pain. COMPLIANCE REPRESENTATIVE Registry: This report was requested by: Bryce Rodriguez | Reference #: [id number] There are no results for the search terms that you entered. I had a lengthy discussion in regards to the acute pain crisis that the patient is having. I advised that his recurrent headaches and frequent visits to the ED is suboptimal in regards to his care and that this pattern of ER visits is not good for the patient. COMPLIANCE REPRESENTATIVE registry check demonstrates no scheduled drug prescriptions. I advised the patient that he should have a pain management doctor that can see him on a regular basis and should consider standing medications for him for his pain. I advised the patient that having frequent dilaudid with benadryl injections is only a temporary solution to his chronic problem and that he had likely developed significant tolerance. Prior charts were inspected, and patients was given 6 mg IM dilaudid with 50 mg IM benadryl. Will give benefit of the doubt given my first time seeing patient, but strongly encouraged patient to go to pain management as that will benefit him most. Once pain is improved, patient will be discharged. 11/09/18 18:48 Patient signed out to oncoming ED attending Dr. Stanley for further management and disposition."
[2018-11-09] MEDS ORDERED: HYDROmorphone HCL CARPU-JECT 1 MG/1 ML DISP.SYRIN IM STA (19:29)
--- NOTE | 2018-11-09 19:29 | PDOC ---
*Physical Exam - Vital Signs Last Vital Signs Temp Pulse Resp BP Pulse Ox 98.5 F 72 18 149/69 99 11/09/18 18:05 11/09/18 18:05 11/09/18 18:05 11/09/18 18:05 11/09/18 18:05 ED Treatment Course - Medications Given in the ED: ED Medications Discontinued Medications Generic Name Dose Route Start Last Admin Trade Name Héctor PRN Reason Stop Dose Admin Diphenhydramine HCl 50 mg 11/09/18 18:29 11/09/18 18:50 Benadryl Injection - IM 11/09/18 18:30 50 mg ONCE ONE Administration Hydromorphone HCl 6 mg 11/09/18 18:30 11/09/18 18:50 Dilaudid Injection - IM 11/09/18 18:31 6 mg ONCE ONE Administration Progress Note - Progress Note Progress Note: Care of this patient was transferred to [place] from Dr. Rodriguez at 1900 hrs. Mr. 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 Patient comes in intermittently when he is unable to manage his pain at home. Patient was given Dilaudid and Benadryl. On reevaluation patient's pain is improved however I will give him 2 more milligrams of Dilaudid and then he will be discharged. *DC/Admit/Observation/Transfer Diagnosis at time of Disposition: Migraine Chronic pain Qualifiers: Chronic pain type: other chronic pain Qualified Code(s): G89.29 - Other chronic pain - Discharge Dispostion Disposition: HOME Condition at time of disposition: Stable - Referrals Referrals: Sree Briones MD [Non Staff, Medical] - - Patient Instructions Printed Discharge Instructions: DI for Migraine, Smoking Cessation Additional Instructions: Please return to the ER if you experience concerning or worsening symptoms including worsening difficulty breathing, weakness, or chest pain, numbness, weakness, vomiting. Please call to schedule a follow up appointment with your primary care provider and your pain management physician Dr. Briones within 2-3 days to discuss your ER visit and further management of your symptoms. - Post Discharge Activity
== END 2018-11-09 20:34 | disposition home or self-care (01) ==
LOC: FER 18:04
PROC: 3E023NZ Introduction of Analgesics, Hypnotics, Sedatives into Muscle, Percutaneous Approach (ICD-10-PCS; principal; 2018-11-09)
PROC: 3E023GC Introduction of Other Therapeutic Substance into Muscle, Percutaneous Approach (ICD-10-PCS; 2018-11-09)
DX: G43.909 Migraine, unspecified, not intractable, without status migrainosus (principal); G89.29 Other chronic pain; E78.5 Hyperlipidemia, unspecified; E11.9 Type 2 diabetes mellitus without complications; I25.10 Atherosclerotic heart disease of native coronary artery without angina pectoris; I25.2 Old myocardial infarction; K21.9 Gastro-esophageal reflux disease without esophagitis; F17.210 Nicotine dependence, cigarettes, uncomplicated; Z88.8 Allergy status to other drugs, medicaments and biological substances; Z79.82 Long term (current) use of aspirin; Z79.84 Long term (current) use of oral hypoglycemic drugs; Z95.5 Presence of coronary angioplasty implant and graft
CPT/HCPCS: 71046-TC-FY; 99282-25

== ENCOUNTER 2019-01-17 19:24 | Emergency (ER) | payer OTHER, BC ==
[2019-01-17] MEDS ORDERED: HYDROmorphone HCl 2 MG/ML VIAL ONE ×2 (19:36→20:36)
--- NOTE | 2019-01-17 19:59 | PDOC ---
History of Present Illness - General Chief Complaint: Pain, Acute Stated Complaint: MIGRAINE, NECK PAIN Time Seen by Provider: 01/17/19 19:53 History Source: Patient Exam Limitations: No Limitations - History of Present Illness Initial Comments: 19:56 This is a 63-year-old male who is well-known to me as I have seen him and treated him on multiple occasions for his chronic migraines and neck pain. 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 Patient comes in intermittently when he is unable to manage his pain with the prescriptions he has at home. Patient does follow-up with his paint dipper and all of his doctors as recommended. Patient said that his pain was exacerbated beyond what he could manage because he was shoveling some snow and ice during the last no storm patient said it is his typical neck and migraine pain but worse than usual but not the worst pain he has ever had. Patient denies any new neurological complaints associated with the pain but does complain of some left arm numbness that he has had in the past but the pain. Allergies: None Past Medical History: As per history of present illness, obesity, hypertension Social history: Lives with family. No smoking. No alcohol. No illicit drugs. Surgical history: Abdominal General: No fevers or chills, no weakness, no weight loss HEENT: No change in vision. No sore throat,. No ear pain CardioVascular: no chest discomfort. No shortness of breath Respiratory:No cough, or wheezing. Gastrointestinal: no nausea, vomiting, diarrhea or constipation, No rectal bleeding Genitourinary: No dysuria, hematuria, or frequency Musculoskeletal: No joint or muscle pain or swelling Neurologic: No headache, vertigo, dizziness or loss of consciousness Psychiatric: nor depression Skin: No rashes or easy bruising Endocrine: no increased thirst or abnormal weight change Allergic: no skin or latex allergy All other systems reviewed and normal GENERAL: The patient is awake, alert, and fully oriented, in no acute distress. HEAD: Normal with no signs of trauma. There is tenderness and spasm on palpation of the left area lateral to the upper cervical spine. EYES: Pupils equal, round and reactive to light, extraocular movements intact, sclera anicteric, conjunctiva clear. EXTREMITIES:atraumatic, Normal range of motion, no edema. NEUROLOGICAL: Normal speech, normal gait. Neurovascular is intact PSYCH: Normal mood, normal affect. SKIN: Warm, Dry, normal turgor, no rashes or lesions noted. Past History - Past Medical History Allergies/Adverse Reactions: Allergies Allergy/AdvReac Type Severity Reaction Status Date / Time prochlorperazine maleate AdvReac Intermediate Rash Verified 11/09/18 18:21 [From Compazine] sumatriptan [From Imitrex] AdvReac Mild Rash Verified 11/09/18 18:21 sumatriptan succinate AdvReac Mild Rash Verified 11/09/18 18:21 [From Imitrex] Home Medications: Ambulatory Orders Aspirin [Aspirin EC] 325 mg PO DAILY 12/29/13 Famotidine [Pepcid -] 20 mg PO HS 12/29/13 Fenofibrate [Fenofibrate -] 160 mg PO DAILY 12/29/13 Gabapentin 400 mg PO 5XD 12/29/13 Metoprolol Tartrate [Lopressor -] 25 mg PO BID 12/29/13 Oxybutynin Chloride 5 mg PO DAILY 12/29/13 Pantoprazole Sodium 40 mg PO DAILY 12/29/13 Rosuvastatin Calcium [Crestor] 40 mg PO HS 12/29/13 Metformin HCl [Glucophage] 1,000 mg PO BID 09/18/15 Aspirin/Acetaminophen/Caffeine [Excedrin Migraine Caplet] 2 each PO BID PRN Sucralfate Oral Suspension [Carafate *Oral Susp*] 1 gm PO QID 06/26/16 Oxycodone HCl/Acetaminophen [Endocet 7.5-325 mg Tablet] 1 - 2 each PO Q6H PRN Cholecalciferol (Vitamin D3) [Vitamin D3] 1,000 unit PO DAILY 04/05/18 Cyanocobalamin (Vitamin B-12) [Vitamin B-12] 1,000 mcg PO DAILY 04/05/18 Gabapentin 400 mg PO ASDIR 11/09/18 Cardiac Disorders: Yes ([place]) COPD: No Diabetes: Yes GI Disorders: Yes (REFLUX) Hypercholesterolemia: Yes Other medical history: CHRONIC PAIN - Surgical History Abdominal Surgery: Yes Cardiac Surgery: Yes (STENTS X4) Cholecystectomy: Yes GI Surgery: Yes (ABD SURGURY) - Immunization History Td Vaccination: Yes TDAP Vaccination: Yes Immunization Up to Date: No - Suicide/Smoking/Psychosocial Hx Smoking Status: Yes Smoking History: Current every day smoker Years of Tobacco Use: 30 Have you smoked in the past 12 months: Yes Number of Cigarettes Smoked Daily: 20 Cigars Per Day: 0 Information on smoking cessation initiated: Yes 'Breaking Loose' booklet given: 08/10/18 Hx Alcohol Use: No Drug/Substance Use Hx: No Substance Use Type: None Hx Substance Use Treatment: No *Physical Exam - Vital Signs Last Vital Signs Temp Pulse Resp BP Pulse Ox 98.5 F 75 16 157/76 99 01/17/19 19:31 01/17/19 19:31 01/17/19 19:31 01/17/19 19:31 01/17/19 19:31 Moderate Sedation - Procedure Monitoring Vital Signs: Procedure Monitoring Vital Signs Temperature 98.5 F 01/17/19 19:31 Pulse Rate 75 01/17/19 19:31 Respiratory Rate 16 01/17/19 19:31 Blood Pressure 157/76 01/17/19 19:31 O2 Sat by Pulse Oximetry (%) 99 01/17/19 19:31 *DC/Admit/Observation/Transfer Diagnosis at time of Disposition: Migraine, Neck pain - Discharge Dispostion Disposition: HOME Condition at time of disposition: Stable Decision to Admit order: No - Referrals - Patient Instructions Additional Instructions: Return to the emergency department immediately with ANY new, persistent or worsening symptoms. Continue any medications as previously prescribed by your physician. You should follow up with your primary doctor as soon as possible regarding today's emergency department visit. . Please make sure your doctor reviews the results of your emergency evaluation. Thank you for coming to the Emergency Department today for your care. It was a pleasure to see you today. Please note that your evaluation is INCOMPLETE until you follow-up with your doctor. - Post Discharge Activity
[2019-01-17 20:09] VITALS: BP 157/76; PULSE 75; TEMP 98.5; BMI 36.0
[2019-01-17] MEDS ORDERED: HYDROmorphone HCL CARPU-JECT 1 MG/1 ML DISP.SYRIN IM ONE (20:31)
[2019-01-17] MEDS ORDERED: diphenhydrAMINE HCL 50 MG CAPSULE PO ONE (20:32)
[2019-01-17] MEDS ORDERED: HYDROmorphone HCL CARPU-JECT 1 MG/1 ML DISP.SYRIN IM STA (20:32)
[2019-01-17] MEDS ORDERED: HYDROmorphone HCL CARPU-JECT 1 MG/1 ML DISP.SYRIN ONE (20:36)
== END 2019-01-17 21:09 | disposition home or self-care (01) ==
LOC: FER 19:24
PROC: 3E023NZ Introduction of Analgesics, Hypnotics, Sedatives into Muscle, Percutaneous Approach (ICD-10-PCS; principal; 2019-01-17)
DX: M54.2 Cervicalgia (principal); R51 Headache; G89.29 Other chronic pain; F17.210 Nicotine dependence, cigarettes, uncomplicated; Z95.5 Presence of coronary angioplasty implant and graft; E11.9 Type 2 diabetes mellitus without complications; I25.2 Old myocardial infarction
CPT/HCPCS: 99282-25

== ENCOUNTER 2019-02-19 01:41 | Emergency (ER) | payer OTHER, BC ==
[2019-02-19 01:57] VITALS: PULSE 68; TEMP 97.9; BMI 35.6
[2019-02-19] MEDS ORDERED: HYDROmorphone HCL CARPU-JECT 1 MG/1 ML DISP.SYRIN IM ONE ×2 (02:10→03:11)
--- NOTE | 2019-02-19 02:12 | PDOC ---
History of Present Illness - General Chief Complaint: Pain, Acute Stated Complaint: MIGRAINE, NECK PAIN,PULLED MUSCLE IN CHEST Time Seen by Provider: 02/19/19 02:09 - History of Present Illness Initial Comments: This 63-year-old man with a history of chronic migraine and left-sided neck/ shoulder/arm pain , well known to this ER, presents with episode of headache and neck pain for several hours. The patient had extraction of left upper pre- canine tooth earlier in the day. After the dental procedure, he lifted several heavy (30 pound) bags of mulch. Both of these events were likely triggers of his current migraine/neck pain. Patient had taken his usual medications for headache without significant relief. There are no unusual features of his headache or neck pain tonight. Also, patient(history HTN/DM/IN, current smoker) noted substernal discomfort earlier in the day after lifting the heavy bags of mulch. This evening, he had a few twinges of milder pain in the same area but pain has subsided. There has been no shortness of breath/diaphoresis/nausea/palpitations. 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 Past History - Past Medical History Allergies/Adverse Reactions: Allergies Allergy/AdvReac Type Severity Reaction Status Date / Time prochlorperazine maleate AdvReac Intermediate Rash Verified 02/19/19 01:50 [From Compazine] sumatriptan [From Imitrex] AdvReac Mild Rash Verified 02/19/19 01:50 sumatriptan succinate AdvReac Mild Rash Verified 02/19/19 01:50 [From Imitrex] Home Medications: Ambulatory Orders Aspirin [Aspirin EC] 325 mg PO DAILY 12/29/13 Famotidine [Pepcid -] 20 mg PO HS 12/29/13 Fenofibrate [Fenofibrate -] 160 mg PO DAILY 12/29/13 Gabapentin 400 mg PO 5XD 12/29/13 Metoprolol Tartrate [Lopressor -] 25 mg PO BID 12/29/13 Oxybutynin Chloride 5 mg PO DAILY 12/29/13 Pantoprazole Sodium 40 mg PO DAILY 12/29/13 Rosuvastatin Calcium [Crestor] 40 mg PO HS 12/29/13 Metformin HCl [Glucophage] 1,000 mg PO BID 09/18/15 Aspirin/Acetaminophen/Caffeine [Excedrin Migraine Caplet] 2 each PO BID PRN Sucralfate Oral Suspension [Carafate *Oral Susp*] 1 gm PO QID 06/26/16 Oxycodone HCl/Acetaminophen [Endocet 7.5-325 mg Tablet] 1 - 2 each PO Q6H PRN Cholecalciferol (Vitamin D3) [Vitamin D3] 1,000 unit PO DAILY 04/05/18 Cyanocobalamin (Vitamin B-12) [Vitamin B-12] 1,000 mcg PO DAILY 04/05/18 Gabapentin 400 mg PO ASDIR 11/09/18 Cardiac Disorders: Yes ([place]) COPD: No Diabetes: Yes GI Disorders: Yes (REFLUX) Hypercholesterolemia: Yes - Surgical History Abdominal Surgery: Yes Cardiac Surgery: Yes (STENTS X4) Cholecystectomy: Yes GI Surgery: Yes (ABD SURGURY) - Immunization History Td Vaccination: Yes TDAP Vaccination: Yes Immunization Up to Date: No - Suicide/Smoking/Psychosocial Hx Smoking Status: Yes Smoking History: Current every day smoker Years of Tobacco Use: 30 Have you smoked in the past 12 months: Yes Number of Cigarettes Smoked Daily: 20 Cigars Per Day: 0 Information on smoking cessation initiated: Yes 'Breaking Loose' booklet given: 08/10/18 Hx Alcohol Use: No Drug/Substance Use Hx: No Substance Use Type: None Hx Substance Use Treatment: No Review of Systems - Review of Systems Able to Perform ROS?: Yes Comments:: 12 point review of systems is negative except for what is noted in the history of present illness *Physical Exam - Vital Signs Last Vital Signs Temp Pulse Resp BP Pulse Ox 97.9 F 68 16 157/76 100 02/19/19 01:52 02/19/19 01:52 02/19/19 01:52 02/19/19 01:52 02/19/19 01:52 - Physical Exam Comments: GENERAL: Adult male, alert and oriented 3, in moderate distress secondary to headache/left sided neck pain HEAD: Normal with no signs of trauma. Mild tenderness left occipital region/ left upper paracervical region EYES: PERRLA, EOMI, sclera anicteric, conjunctiva clear. ENT: Ears normal, nares patent, oropharynx clear without exudates. Dry mucous membranes. NECK: Normal range of motion, supple without lymphadenopathy, JVD, or masses. Mild tenderness left SCM LUNGS: Breath sounds equal, clear to auscultation bilaterally. No wheezes, and no crackles. Chest wall nontender HEART:Regular rate and rhythm, normal S1 and S2 without murmur, rub or gallop. EXTREMITIES: Normal range of motion, no edema. No clubbing or cyanosis. No erythema, or tenderness. NEUROLOGICAL: Cranial nerves II through XII grossly intact. Normal speech. No focal neurological deficits. 12-lead electrocardiogram is performed and interpreted by me: Normal sinus rhythm at 62 bpm; there is first-degree AV block present. Left axis deviation is present. There is evidence of inferior wall IN with Q waves in II,III.aVF. One PAC is present. No acute ST or T-wave abnormalities present no prolonged cardiac arrhythmia present. There is no change from previous EKG dated 05/10/18 Medical Decision Making - Medical Decision Making This 63-year-old man with a history of recurrent, intermittent episodes of migraine and left neck muscle spasm pain presents with usual pattern of acute pain. There are no unusual characteristics in the history or findings on exam; there were triggering events earlier today (tooth extraction, lifting of heavy bags of mulch). Because he mentioned chest pain earlier in the day, with his history of IN in the past and multiple risk factors for coronary artery disease, 12-lead electrocardiogram was performed and interpreted as noted above. Since the pain is not prominent now and he has no other associated symptoms, no further workup performed. Chest pain likely related to self-limited musculoskeletal strain related to lifting of heavy bags. Patient felt significant relief in migraine headache pain after 6 mg Dilaudid IM /50 mg Benadryl IM but still had pain in the paracervical muscles and left side of his neck. He has for additional pain medication was given 3 mg Dilaudid IM. After second dose of Dilaudid IM, patient had full relief of his pain. He was discharged in the company of his , alert and comfortable. He is advised to continue his medications as prescribed, follow-up with his doctors as scheduled but to return to the ER if he had recurrent headache/muscle spasm/chest pain/ shortness of breath/palpitations. *DC/Admit/Observation/Transfer Diagnosis at time of Disposition: Migraine, Neck pain Chest wall muscle strain Qualifiers: Encounter type: initial encounter Qualified Code(s): S29.011A - Strain of muscle and tendon of front wall of thorax, initial encounter - Discharge Dispostion Disposition: HOME Condition at time of disposition: Stable - Referrals - Patient Instructions Printed Discharge Instructions: DI for Atypical Chest Pain Additional Instructions: Local warmth to neck Continue medications as previously Avoid lifting/pulling/pushing any heavy object Follow-up with your doctors as scheduled Return to the ER if you have any recurrent headache/neck pain/chest pain - Post Discharge Activity
[2019-02-19] MEDS ORDERED: HYDROmorphone HCl 2 MG/ML VIAL ONE ×2 (02:18→03:12)
[2019-02-19] MEDS ORDERED: HYDROmorphone HCL CARPU-JECT 1 MG/1 ML DISP.SYRIN ONE (03:12)
[2019-02-19 03:43] VITALS: BP 136/65
--- NOTE | 2019-02-19 14:23 | EKG ---
Test Reason : Blood Pressure : / mmHG Vent. Rate : 062 BPM Atrial Rate : 062 BPM P-R Int : 272 ms QRS Dur : 112 ms QT Int : 432 ms P-R-T Axes : 000 -35 010 degrees QTc Int : 438 ms SINUS RHYTHM WITH 1ST DEGREE A-V BLOCK WITH PREMATURE ATRIAL COMPLEXES LEFT AXIS DEVIATION INFERIOR INFARCT (CITED ON OR BEFORE 09-APR-2018) ABNORMAL ECG WHEN COMPARED WITH ECG OF 09-APR-2018 00:23, PREMATURE ATRIAL COMPLEXES ARE NOW PRESENT Confirmed by MD Patricia, Alex ([id number]) on 02/19/2019 2:23:11 PM Referred By: LOBO EASLEY Confirmed By:Alex Gomez MD
== END 2019-02-19 03:47 | disposition home or self-care (01) ==
LOC: FER 01:41
PROC: 3E033GC Introduction of Other Therapeutic Substance into Peripheral Vein, Percutaneous Approach (ICD-10-PCS; principal; 2019-02-19)
PROC: 3E033NZ Introduction of Analgesics, Hypnotics, Sedatives into Peripheral Vein, Percutaneous Approach (ICD-10-PCS; 2019-02-19)
DX: G43.909 Migraine, unspecified, not intractable, without status migrainosus (principal); M54.2 Cervicalgia; S29.011A Strain of muscle and tendon of front wall of thorax, initial encounter; X58.XXXA Exposure to other specified factors, initial encounter; Y93.89 Activity, other specified; Y92.89 Other specified places as the place of occurrence of the external cause; F17.210 Nicotine dependence, cigarettes, uncomplicated; E11.9 Type 2 diabetes mellitus without complications; I25.2 Old myocardial infarction; K21.9 Gastro-esophageal reflux disease without esophagitis; Z95.5 Presence of coronary angioplasty implant and graft
CPT/HCPCS: 93005; 96372; 99281-25

== ENCOUNTER 2019-03-07 21:43 | Emergency (ER) | payer OTHER, BC ==
[2019-03-07 21:46] VITALS: BP 138/78; PULSE 72; TEMP 98; BMI 36.1
--- NOTE | 2019-03-07 22:05 | PDOC ---
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 Patient is disabled as a result of his on-the-job injuries. Patient is well-known to me and comes in intermittently for acute exacerbation of his chronic long-term ongoing pain. Patient comes in tonight for acute exacerbation of migraines and neck pain. This is typical for patient. Patient denies any new neurological symptoms or complaints. Allergies: as per nursing notes Past Medical History: none Social history: Lives with family. No smoking. No alcohol. No illicit drugs. Surgical history: None General: No fevers or chills, no weakness, no weight loss HEENT: No change in vision. No sore throat,. No ear pain CardioVascular: no chest discomfort. No shortness of breath Respiratory:No cough, or wheezing. Gastrointestinal: no nausea, vomiting, diarrhea or constipation, No rectal bleeding Genitourinary: No dysuria, hematuria, or frequency Musculoskeletal: No joint or muscle pain or swelling Neurologic: No headache, vertigo, dizziness or loss of consciousness Psychiatric: nor depression Skin: No rashes or easy bruising Endocrine: no increased thirst or abnormal weight change Allergic: no skin or latex allergy All other systems reviewed and normal GENERAL: The patient is awake, alert, and fully oriented, in no acute distress. HEAD: Normal with no signs of trauma. EYES: Pupils equal, round and reactive to light, extraocular movements intact, sclera anicteric, conjunctiva clear. EXTREMITIES:atraumatic, Normal range of motion, no edema. NEUROLOGICAL: Normal speech, normal gait. PSYCH: Normal mood, normal affect. SKIN: Warm, Dry, normal turgor, no rashes or lesions noted. Assessment plan: This is 16-year-old male with acute exacerbation of his chronic long-term pain. Patient will be given Dilaudid and Benadryl which is what I normally give him anything else is normally given to him that he tolerates well. Past History - Past Medical History Allergies/Adverse Reactions: Allergies Allergy/AdvReac Type Severity Reaction Status Date / Time prochlorperazine maleate AdvReac Intermediate Rash Verified 03/07/19 21:47 [From Compazine] sumatriptan [From Imitrex] AdvReac Mild Rash Verified 03/07/19 21:47 sumatriptan succinate AdvReac Mild Rash Verified 03/07/19 21:47 [From Imitrex] Home Medications: Ambulatory Orders Aspirin [Aspirin EC] 325 mg PO DAILY 12/29/13 Famotidine [Pepcid -] 20 mg PO HS 12/29/13 Fenofibrate [Fenofibrate -] 160 mg PO DAILY 12/29/13 Gabapentin 400 mg PO 5XD 12/29/13 Metoprolol Tartrate [Lopressor -] 25 mg PO BID 12/29/13 Oxybutynin Chloride 5 mg PO DAILY 12/29/13 Pantoprazole Sodium 40 mg PO DAILY 12/29/13 Rosuvastatin Calcium [Crestor] 40 mg PO HS 12/29/13 Metformin HCl [Glucophage] 1,000 mg PO BID 09/18/15 Aspirin/Acetaminophen/Caffeine [Excedrin Migraine Caplet] 2 each PO BID PRN Sucralfate Oral Suspension [Carafate *Oral Susp*] 1 gm PO QID 06/26/16 Oxycodone HCl/Acetaminophen [Endocet 7.5-325 mg Tablet] 1 - 2 each PO Q6H PRN Cholecalciferol (Vitamin D3) [Vitamin D3] 1,000 unit PO DAILY 04/05/18 Cyanocobalamin (Vitamin B-12) [Vitamin B-12] 1,000 mcg PO DAILY 04/05/18 Gabapentin 400 mg PO ASDIR 11/09/18 Cardiac Disorders: Yes ([place]) COPD: No Diabetes: Yes GI Disorders: Yes (REFLUX) Hypercholesterolemia: Yes - Surgical History Abdominal Surgery: Yes Cardiac Surgery: Yes (STENTS X4) Cholecystectomy: Yes GI Surgery: Yes (ABD SURGURY) - Immunization History Td Vaccination: Yes TDAP Vaccination: Yes Immunization Up to Date: No - Suicide/Smoking/Psychosocial Hx Smoking Status: Yes Smoking History: Current every day smoker Years of Tobacco Use: 30 Have you smoked in the past 12 months: Yes Number of Cigarettes Smoked Daily: 20 Cigars Per Day: 0 Information on smoking cessation initiated: Yes 'Breaking Loose' booklet given: 08/10/18 Hx Alcohol Use: No Drug/Substance Use Hx: No Substance Use Type: None Hx Substance Use Treatment: No *Physical Exam - Vital Signs Last Vital Signs Temp Pulse Resp BP Pulse Ox 98.0 F 72 19 138/78 100 03/07/19 21:43 03/07/19 21:43 03/07/19 21:43 03/07/19 21:43 03/07/19 21:43 *DC/Admit/Observation/Transfer Diagnosis at time of Disposition: Migraine, Neck pain - Discharge Dispostion Disposition: HOME Condition at time of disposition: Stable Decision to Admit order: No - Referrals - Patient Instructions Additional Instructions: Continue to take all your medications as prescribed. Return to the emergency department immediately with ANY new, persistent or worsening symptoms. Continue any medications as previously prescribed by your physician. You should follow up with your primary doctor as soon as possible regarding today's emergency department visit. . Please make sure your doctor reviews the results of your emergency evaluation. Thank you for coming to the Emergency Department today for your care. It was a pleasure to see you today. Please note that your evaluation is INCOMPLETE until you follow-up with your doctor. - Post Discharge Activity
[2019-03-07] MEDS ORDERED: HYDROmorphone HCL CARPU-JECT 1 MG/1 ML DISP.SYRIN IVPUSH ONE ×2 (22:19→23:13)
[2019-03-07] MEDS ORDERED: HYDROmorphone HCl 2 MG/ML VIAL ONE ×2 (22:23→23:16)
== END 2019-03-08 | disposition home or self-care (01) ==
LOC: FER 21:43
PROC: 3E033GC Introduction of Other Therapeutic Substance into Peripheral Vein, Percutaneous Approach (ICD-10-PCS; principal; 2019-03-07)
PROC: 3E033NZ Introduction of Analgesics, Hypnotics, Sedatives into Peripheral Vein, Percutaneous Approach (ICD-10-PCS; 2019-03-07)
DX: F17.210 Nicotine dependence, cigarettes, uncomplicated (principal); G43.909 Migraine, unspecified, not intractable, without status migrainosus; M54.2 Cervicalgia; Z95.5 Presence of coronary angioplasty implant and graft; K21.9 Gastro-esophageal reflux disease without esophagitis; I25.2 Old myocardial infarction; E11.9 Type 2 diabetes mellitus without complications; E78.00 Pure hypercholesterolemia, unspecified
CPT/HCPCS: 99282-25

== ENCOUNTER 2019-05-02 20:05 | Emergency (ER) | payer OTHER, BC ==
[2019-05-02 20:15] VITALS: BP 133/55; PULSE 61; TEMP 98.1; BMI 26.2
--- NOTE | 2019-05-02 20:29 | PDOC ---
History of Present Illness - General Chief Complaint: Pain, Acute Stated Complaint: PAIN - History of Present Illness Initial Comments: This 63-year-old man, well-known to this ED, with history of chronic intermittent migraine headaches presents with 1 day history of his typical left- sided migraine headache and left sided neck/shoulder discomfort despite using his prescribed medications. Symptoms are typical of his usual episodes of migraine without development of new complaints. 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 New pain management regimen apparently is not as effective as previously. He also describes intermittent muscle spasms of his arms and mid back that seemed to be worsening in recent weeks. No chest pain/shortness breath/abdominal pain. Past History - Past Medical History Allergies/Adverse Reactions: Allergies Allergy/AdvReac Type Severity Reaction Status Date / Time prochlorperazine maleate AdvReac Intermediate Rash Verified 03/07/19 21:47 [From Compazine] sumatriptan [From Imitrex] AdvReac Mild Rash Verified 03/07/19 21:47 sumatriptan succinate AdvReac Mild Rash Verified 03/07/19 21:47 [From Imitrex] Home Medications: Ambulatory Orders Aspirin [Aspirin EC] 325 mg PO DAILY 12/29/13 Famotidine [Pepcid -] 20 mg PO HS 12/29/13 Fenofibrate [Fenofibrate -] 160 mg PO DAILY 12/29/13 Gabapentin 400 mg PO 5XD 12/29/13 Metoprolol Tartrate [Lopressor -] 25 mg PO BID 12/29/13 Oxybutynin Chloride 5 mg PO DAILY 12/29/13 Pantoprazole Sodium 40 mg PO DAILY 12/29/13 Rosuvastatin Calcium [Crestor] 40 mg PO HS 12/29/13 Metformin HCl [Glucophage] 1,000 mg PO BID 09/18/15 Aspirin/Acetaminophen/Caffeine [Excedrin Migraine Caplet] 2 each PO BID PRN Sucralfate Oral Suspension [Carafate *Oral Susp*] 1 gm PO QID 06/26/16 Oxycodone HCl/Acetaminophen [Endocet 7.5-325 mg Tablet] 1 - 2 each PO Q6H PRN Cholecalciferol (Vitamin D3) [Vitamin D3] 1,000 unit PO DAILY 04/05/18 Cyanocobalamin (Vitamin B-12) [Vitamin B-12] 1,000 mcg PO DAILY 04/05/18 Gabapentin 400 mg PO ASDIR 11/09/18 Cardiac Disorders: Yes ([place]) COPD: No Diabetes: Yes GI Disorders: Yes (REFLUX) Hypercholesterolemia: Yes - Surgical History Abdominal Surgery: Yes Cardiac Surgery: Yes (STENTS X4) Cholecystectomy: Yes GI Surgery: Yes (ABD SURGURY) - Immunization History Td Vaccination: Yes TDAP Vaccination: Yes Immunization Up to Date: No - Suicide/Smoking/Psychosocial Hx Smoking Status: Yes Smoking History: Current every day smoker Years of Tobacco Use: 30 Have you smoked in the past 12 months: Yes Number of Cigarettes Smoked Daily: 20 Cigars Per Day: 0 Information on smoking cessation initiated: Yes 'Breaking Loose' booklet given: 03/07/19 Hx Alcohol Use: No Drug/Substance Use Hx: No Substance Use Type: None Hx Substance Use Treatment: No Review of Systems - Review of Systems Able to Perform ROS?: Yes Comments:: 12 point review of systems is negative except for what is noted in the history of present illness *Physical Exam - Vital Signs Last Vital Signs Temp Pulse Resp BP Pulse Ox 98.1 F 61 18 133/55 L 98 05/02/19 20:11 05/02/19 20:11 05/02/19 20:11 05/02/19 20:11 05/02/19 20:11 - Physical Exam Comments: GENERAL: Adult male, alert and oriented 3, in moderate distress, secondary to migraine pain HEAD: Normal with no signs of trauma. EYES: PERRLA, EOMI, sclera anicteric, conjunctiva clear. ENT: Ears normal, nares patent, oropharynx clear without exudates. Dry mucous membranes. NECK: supple without lymphadenopathy, JVD, or masses. EXTREMITIES: Normal range of motion, no edema. No clubbing or cyanosis. No erythema, or tenderness. NEUROLOGICAL: Cranial nerves II through XII grossly intact. Normal speech. No focal neurological deficits. SKIN: Warm, Dry, normal turgor, no rashes or lesions noted. Medical Decision Making - Medical Decision Making 63-year-old man with a history chronic migraine , presents with acute episode with typical symptoms. Nothing on history or physical exam suggests pathology other than his usual migraine headache. Patient has found relief from his headache pain in the past with Dilaudid IM and Benadryl IM After patient had Dilaudid and Benadryl IM as per his usual dosing, he had adequate relief of most of his headache and neck pain. Patient was discharged with advice to continue medications as prescribed. Also, because of his more frequent muscle spasms, it was suggested that he make an effort to drink more water; also, he may also empirically try low-dose calcium supplementation (over- the-counter supplements such as coral calcium). He is strongly urged to follow- up with his general medical doctor within the next several days, specifically pointing out his increase in episodes of muscle spasms *DC/Admit/Observation/Transfer Diagnosis at time of Disposition: Migraine - Discharge Dispostion Disposition: HOME Condition at time of disposition: Stable - Referrals - Patient Instructions Printed Discharge Instructions: DI for Migraine Additional Instructions: continue medications as prescribed Drink plenty of water Consider calcium supplementation as discussed Follow-up with your general medical doctor within the next 5 days Return to ER if you have persistent headache/neck pain or severe muscle spasms that are persistent - Post Discharge Activity
[2019-05-02] MEDS ORDERED: HYDROmorphone HCL CARPU-JECT 2 MG/1 ML DISP.SYRIN IM ONE ×2 (20:30→21:33)
[2019-05-02] MEDS ORDERED: HYDROmorphone HCl 2 MG/ML VIAL ONE ×2 (20:33→21:36)
== END 2019-05-02 22:28 | disposition home or self-care (01) ==
LOC: FER 20:05
PROC: 3E033GC Introduction of Other Therapeutic Substance into Peripheral Vein, Percutaneous Approach (ICD-10-PCS; principal; 2019-05-02)
PROC: 3E033NZ Introduction of Analgesics, Hypnotics, Sedatives into Peripheral Vein, Percutaneous Approach (ICD-10-PCS; 2019-05-02)
DX: G43.909 Migraine, unspecified, not intractable, without status migrainosus (principal); F17.210 Nicotine dependence, cigarettes, uncomplicated; Z95.5 Presence of coronary angioplasty implant and graft; K21.9 Gastro-esophageal reflux disease without esophagitis; E78.00 Pure hypercholesterolemia, unspecified
CPT/HCPCS: 99282-25

== ENCOUNTER 2019-06-19 20:50 | Emergency (ER) | payer BC, OTHER ==
[2019-06-19 20:58] VITALS: BP 118/54; PULSE 67; TEMP 97.9; BMI 31.6
[2019-06-19] MEDS ORDERED: HYDROmorphone HCL CARPU-JECT 2 MG/1 ML DISP.SYRIN IM ONE ×2 (21:19→21:53)
[2019-06-19] MEDS ORDERED: HYDROmorphone HCl 2 MG/ML VIAL ONE ×2 (21:23→21:55)
--- NOTE | 2019-06-20 02:49 | PDOC ---
Documentation entered by Roz Porter SCRIBE, acting as scribe for Perla Bar MD. Perla Bar MD: This documentation has been prepared by the janiceibGerman dumont Lincy, SCRIBE, under my direction and personally reviewed by me in its entirety. I confirm that the documentation accurately reflects all work, treatment, procedures, and medical decision making performed by me. History of Present Illness - General Chief Complaint: Pain, Acute Stated Complaint: PAIN - History of Present Illness Initial Comments: This 63-year-old man with a long history of migraine headache/left sided neck pain presents with 1 day history of persistent headache in the usual pattern of his migraine. Pain has been persistent despite use of prescription medication that patient has at home. No unusual features present in this episode with left -sided headache, left sided neck and shoulder discomfort described. No chest pain/shortness of breath/extremity weakness, numbness, paresthesias. Past History - Past Medical History Allergies/Adverse Reactions: Allergies Allergy/AdvReac Type Severity Reaction Status Date / Time prochlorperazine maleate AdvReac Intermediate Rash Verified 03/07/19 21:47 [From Compazine] sumatriptan [From Imitrex] AdvReac Mild Rash Verified 03/07/19 21:47 sumatriptan succinate AdvReac Mild Rash Verified 03/07/19 21:47 [From Imitrex] Home Medications: Ambulatory Orders Aspirin [Aspirin EC] 325 mg PO DAILY 12/29/13 Famotidine [Pepcid -] 20 mg PO HS 12/29/13 Fenofibrate [Fenofibrate -] 160 mg PO DAILY 12/29/13 Gabapentin 400 mg PO 5XD 12/29/13 Metoprolol Tartrate [Lopressor -] 25 mg PO BID 12/29/13 Oxybutynin Chloride 5 mg PO DAILY 12/29/13 Pantoprazole Sodium 40 mg PO DAILY 12/29/13 Rosuvastatin Calcium [Crestor] 40 mg PO HS 12/29/13 Metformin HCl [Glucophage] 1,000 mg PO BID 09/18/15 Aspirin/Acetaminophen/Caffeine [Excedrin Migraine Caplet] 2 each PO BID PRN Sucralfate Oral Suspension [Carafate *Oral Susp*] 1 gm PO QID 06/26/16 Oxycodone HCl/Acetaminophen [Endocet 7.5-325 mg Tablet] 1 - 2 each PO Q6H PRN Cholecalciferol (Vitamin D3) [Vitamin D3] 1,000 unit PO DAILY 04/05/18 Cyanocobalamin (Vitamin B-12) [Vitamin B-12] 1,000 mcg PO DAILY 04/05/18 Gabapentin 400 mg PO ASDIR 11/09/18 Cardiac Disorders: Yes ([place]) COPD: No Diabetes: Yes GI Disorders: Yes (REFLUX) Hypercholesterolemia: Yes - Surgical History Abdominal Surgery: Yes Cardiac Surgery: Yes (STENTS X4) Cholecystectomy: Yes GI Surgery: Yes (ABD SURGURY) - Immunization History Td Vaccination: Yes TDAP Vaccination: Yes Immunization Up to Date: No - Suicide/Smoking/Psychosocial Hx Smoking Status: Yes Smoking History: Never smoked Years of Tobacco Use: 30 Have you smoked in the past 12 months: Yes Number of Cigarettes Smoked Daily: 20 Cigars Per Day: 0 'Breaking Loose' booklet given: 03/07/19 Hx Alcohol Use: No Drug/Substance Use Hx: No Substance Use Type: None Hx Substance Use Treatment: No Review of Systems - Review of Systems Able to Perform ROS?: Yes Comments:: 12 point review of systems is negative except for what is noted in the history of present illness *Physical Exam - Vital Signs Last Vital Signs Temp Pulse Resp BP Pulse Ox 97.9 F 67 18 118/54 L 100 06/19/19 20:54 06/19/19 20:54 06/19/19 20:54 06/19/19 20:54 06/19/19 20:54 - Physical Exam Comments: GENERAL: Adult male, alert and oriented 3, in mild distress secondary to headache pain HEAD: Normal with no signs of trauma. EYES: PERRLA, EOMI, sclera anicteric, conjunctiva clear. ENT: Ears normal, nares patent, oropharynx clear without exudates. Dry mucous membranes. NECK: Normal range of motion, supple without lymphadenopathy, JVD, or masses. EXTREMITIES: Normal range of motion, no edema. No clubbing or cyanosis. No erythema, or tenderness. NEUROLOGICAL: Cranial nerves II through XII grossly intact. Normal speech. No focal neurological deficits. ED Treatment Course - Medications Given in the ED: ED Medications Discontinued Medications Generic Name Dose Route Start Last Admin Trade Name Freq PRN Reason Stop Dose Admin Diphenhydramine HCl 50 mg 06/19/19 21:20 06/19/19 21:30 Benadryl Injection - IM 06/19/19 21:21 50 mg ONCE ONE Administration Hydromorphone HCl 6 mg 06/19/19 21:19 06/19/19 21:30 Dilaudid Injection - IM 06/19/19 21:20 6 mg ONCE ONE Administration Hydromorphone HCl 2 mg 06/19/19 21:53 06/19/19 21:58 Dilaudid Injection - IM 06/19/19 21:54 2 mg ONCE ONE Administration Medical Decision Making - Medical Decision Making This 63-year-old man with a history chronic migraine and cervical disc disease presents with usual migraine episode, persistent despite use of home prescription medications. No new features of this episode of headache. Exam is noted. Patient received the medications that are usually most effective for his severe headaches: Dilaudid and Benadryl IM. He had significant relief in the pain after medications were administered and he had no development of new symptoms. Patient was discharged in the company of his with instructions to follow- up with his general medical doctor as well as his pain management doctor as scheduled. He should return to the emergency room if he has persistent, severe headache *DC/Admit/Observation/Transfer Diagnosis at time of Disposition: Migraine - Discharge Dispostion Disposition: HOME Condition at time of disposition: Stable - Referrals - Patient Instructions Printed Discharge Instructions: Migraine -- Adult Additional Instructions: Continue pain medications as needed for headache Return to ER if you have persistent pain despite use of your pain medications Follow-up with your pain management doctor as arranged - Post Discharge Activity
== END 2019-06-19 22:58 | disposition home or self-care (01) ==
LOC: FER 20:50
PROC: 3E023GC Introduction of Other Therapeutic Substance into Muscle, Percutaneous Approach (ICD-10-PCS; principal; 2019-06-19)
PROC: 3E023NZ Introduction of Analgesics, Hypnotics, Sedatives into Muscle, Percutaneous Approach (ICD-10-PCS; 2019-06-19)
DX: G43.909 Migraine, unspecified, not intractable, without status migrainosus (principal); Z95.5 Presence of coronary angioplasty implant and graft; K21.9 Gastro-esophageal reflux disease without esophagitis; I25.2 Old myocardial infarction; E78.00 Pure hypercholesterolemia, unspecified; E11.9 Type 2 diabetes mellitus without complications
CPT/HCPCS: 99281-25

== ENCOUNTER 2019-07-21 20:54 | Emergency (ER) | payer OTHER, BC ==
[2019-07-21 21:09] VITALS: PULSE 73; TEMP 98.5; BMI 38.2
[2019-07-21] MEDS ORDERED: HYDROmorphone HCl 2 MG/ML VIAL ONE ×2 (21:21→23:02)
[2019-07-21] MEDS ORDERED: HYDROmorphone HCL CARPU-JECT 2 MG/1 ML DISP.SYRIN IM ONE ×2 (21:21→22:58)
[2019-07-21 23:23] VITALS: BP 128/73
--- NOTE | 2019-07-21 23:56 | PDOC ---
Documentation entered by Mayda Patricia SCRIBE, acting as scribe for Perla Bar MD. Perla Bar MD: This documentation has been prepared by the janiceibeHarshad Natalie, SCRIBE, under my direction and personally reviewed by me in its entirety. I confirm that the documentation accurately reflects all work, treatment, procedures, and medical decision making performed by me. History of Present Illness - General Chief Complaint: Migraine Headache Stated Complaint: MIGRAINE,NAUSEA - History of Present Illness Initial Comments: This 63-year-old man with a history of chronic migraine (left-sided)and cervical disc disease, who presents to this ER occasionally with episodes of intractable migraine pain is seen tonight with usual left sided migraine headache with radiation to the left neck/shoulder area. Onset was somewhat more rapid than usual; patient describes left-sided facial numbness/headache and pain radiation to the left side of his neck occurring as he was watching television this evening. Despite taking his usual home pain medications, pain persisted. Pain quality and pattern is otherwise unchanged from previous episodes. He denies shortness of breath/chest pain/palpitations/lightheadedness /difficulty speaking/extremity weakness. He states that he has found that his pain is somewhat more severe in the last 3 months ( since his new pain management doctor administered an epidural block in April of this year) Past History - Past Medical History Allergies/Adverse Reactions: Allergies Allergy/AdvReac Type Severity Reaction Status Date / Time prochlorperazine maleate AdvReac Intermediate Rash Verified 07/21/19 20:56 [From Compazine] sumatriptan [From Imitrex] AdvReac Mild Rash Verified 07/21/19 20:56 sumatriptan succinate AdvReac Mild Rash Verified 07/21/19 20:56 [From Imitrex] Home Medications: Ambulatory Orders Aspirin [Aspirin EC] 325 mg PO DAILY 12/29/13 Famotidine [Pepcid -] 20 mg PO HS 12/29/13 Fenofibrate [Fenofibrate -] 160 mg PO DAILY 12/29/13 Gabapentin 400 mg PO 5XD 12/29/13 Metoprolol Tartrate [Lopressor -] 25 mg PO BID 12/29/13 Oxybutynin Chloride 5 mg PO DAILY 12/29/13 Pantoprazole Sodium 40 mg PO DAILY 02/16/14 Rosuvastatin Calcium [Crestor] 40 mg PO HS 12/29/13 Metformin HCl [Glucophage] 1,000 mg PO BID 09/18/15 Aspirin/Acetaminophen/Caffeine [Excedrin Migraine Caplet] 2 each PO BID PRN Sucralfate Oral Suspension [Carafate *Oral Susp*] 1 gm PO QID 06/26/16 Oxycodone HCl/Acetaminophen [Endocet 7.5-325 mg Tablet] 1 - 2 each PO Q6H PRN Cholecalciferol (Vitamin D3) [Vitamin D3] 1,000 unit PO DAILY 04/05/18 Cyanocobalamin (Vitamin B-12) [Vitamin B-12] 1,000 mcg PO DAILY 04/05/18 Gabapentin 400 mg PO ASDIR 11/09/18 Amoxicillin - [Amoxicillin 500mg Capsule -] 500 mg PO BID 07/21/19 Cardiac Disorders: Yes ([place]) COPD: No Diabetes: Yes GI Disorders: Yes (REFLUX) Hypercholesterolemia: Yes - Surgical History Abdominal Surgery: Yes Cardiac Surgery: Yes (STENTS X4) Cholecystectomy: Yes GI Surgery: Yes (ABD SURGURY) - Immunization History Td Vaccination: Yes TDAP Vaccination: Yes Immunization Up to Date: No - Suicide/Smoking/Psychosocial Hx Smoking Status: Yes Smoking History: Current every day smoker Years of Tobacco Use: 30 Have you smoked in the past 12 months: Yes Number of Cigarettes Smoked Daily: 6 Cigars Per Day: 0 Information on smoking cessation initiated: Yes 'Breaking Loose' booklet given: 03/07/19 Hx Alcohol Use: No Drug/Substance Use Hx: No Substance Use Type: None Hx Substance Use Treatment: No Review of Systems - Review of Systems Able to Perform ROS?: Yes Comments:: 12 point review of systems is negative except for what is noted in the history of present illness *Physical Exam - Vital Signs Last Vital Signs Temp Pulse Resp BP Pulse Ox 98.5 F 73 18 172/80 H 100 07/21/19 20:58 07/21/19 20:58 07/21/19 20:58 07/21/19 20:58 07/21/19 20:58 - Physical Exam Comments: GENERAL: Adult male, alert and oriented 3, in moderate distress, secondary to migraine pain HEAD: Normal with no signs of trauma. EYES: PERRLA, EOMI, sclera anicteric, conjunctiva clear. ENT: Ears normal, nares patent, oropharynx clear without exudates. Dry mucous membranes. NECK: supple without lymphadenopathy, JVD, or masses. EXTREMITIES: Normal range of motion, no edema. No clubbing or cyanosis. No erythema, or tenderness. NEUROLOGICAL: Cranial nerves II through XII grossly intact. Normal speech. No focal neurological deficits. SKIN: Warm, Dry, normal turgor, no rashes or lesions noted. ED Treatment Course - Medications Given in the ED: ED Medications Discontinued Medications Generic Name Dose Route Start Last Admin Trade Name Héctor PRN Reason Stop Dose Admin Diphenhydramine HCl 25 mg 07/21/19 21:21 07/21/19 21:30 Benadryl Injection - IM 07/21/19 21:22 25 mg ONCE ONE Administration Hydromorphone HCl 6 mg 07/21/19 21:21 07/21/19 21:30 Dilaudid Injection - IM 07/21/19 21:22 6 mg ONCE ONE Administration Hydromorphone HCl 2 mg 07/21/19 22:58 07/21/19 23:08 Dilaudid Injection - IM 07/21/19 22:59 2 mg ONCE ONE Administration Medical Decision Making - Medical Decision Making This 63-year-old man with a long history of left-sided migraine headaches, occasionally intractable and requiring parenteral medications, presents with usual headache pattern, although he describes relatively sudden onset of the pain tonight rather than gradual buildup of discomfort. Other than that, there are no new symptoms. Exam as noted, with no evidence of focal neurologic deficit or other new findings. In the past, the patient has had best analgesia effects with Dilaudid IM, 6 mg and Benadryl IM, 25 mg. An additional 2 mg of Dilaudid IM was required for full resolution of his headache pain. No new symptoms developed and patient was discharged in the company of his with plan to follow-up with his general medical doctor as well as his pain management doctor as scheduled. He will return to the ER if he has any further intractable migraine pain or any new , serious and persistent symptoms. *DC/Admit/Observation/Transfer Diagnosis at time of Disposition: Migraine - Discharge Dispostion Disposition: HOME Condition at time of disposition: Stable - Referrals - Patient Instructions Printed Discharge Instructions: DI for Migraine Additional Instructions: Drink plenty of water Continue medications as prescribed Return to ER if you have persistent, severe headache/neck pain - Post Discharge Activity
== END 2019-07-21 23:40 | disposition home or self-care (01) ==
LOC: FER 20:54
PROC: 3E033GC Introduction of Other Therapeutic Substance into Peripheral Vein, Percutaneous Approach (ICD-10-PCS; principal; 2019-07-21)
PROC: 3E033NZ Introduction of Analgesics, Hypnotics, Sedatives into Peripheral Vein, Percutaneous Approach (ICD-10-PCS; 2019-07-21)
DX: G43.909 Migraine, unspecified, not intractable, without status migrainosus (principal); F17.210 Nicotine dependence, cigarettes, uncomplicated; K21.9 Gastro-esophageal reflux disease without esophagitis; I25.2 Old myocardial infarction; E78.00 Pure hypercholesterolemia, unspecified; E11.9 Type 2 diabetes mellitus without complications
CPT/HCPCS: 99281-25

== ENCOUNTER 2019-09-05 22:41 | Emergency (ER) | payer OTHER, BC ==
--- NOTE | 2019-09-05 22:44 | PDOC ---
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 Patient comes in intermittently usually about once a month for pain medication. Patient does have a pain specialist that he follows up with. Patient was last seen by me back in February but has been here since then. Patient comes in tonight complaining of his typical migraine and pain. Patient took his usual medications without relief. Patient is well-known to me and I have treated him on multiple occasions for his chronic pain issues. Allergies: as per nursing notes Past Medical History: none Social history: Lives with family. No smoking. No alcohol. No illicit drugs. Surgical history: None General: No fevers or chills, no weakness, no weight loss HEENT: No change in vision. No sore throat,. No ear pain, headache, neck pain and upper shoulder pain on the left CardioVascular: no chest discomfort. No shortness of breath Respiratory:No cough, or wheezing. Gastrointestinal: no nausea, vomiting, diarrhea or constipation, No rectal bleeding Genitourinary: No dysuria, hematuria, or frequency Musculoskeletal: No joint or muscle pain or swelling Neurologic: No headache, vertigo, dizziness or loss of consciousness Psychiatric: nor depression Skin: No rashes or easy bruising Endocrine: no increased thirst or abnormal weight change Allergic: no skin or latex allergy All other systems reviewed and normal GENERAL: The patient is awake, alert, and fully oriented, in no acute distress. HEAD: Normal with no signs of trauma. EYES: Pupils equal, round and reactive to light, extraocular movements intact, sclera anicteric, conjunctiva clear. EXTREMITIES:atraumatic, decreased range of motion secondary to pain, no edema. Neurovascular intact NEUROLOGICAL: Normal speech, normal gait. PSYCH: Normal mood, normal affect. SKIN: Warm, Dry, normal turgor, no rashes or lesions noted. Past History - Past Medical History Allergies/Adverse Reactions: Allergies Allergy/AdvReac Type Severity Reaction Status Date / Time prochlorperazine maleate AdvReac Intermediate Rash Verified 07/21/19 20:56 [From Compazine] sumatriptan [From Imitrex] AdvReac Mild Rash Verified 07/21/19 20:56 sumatriptan succinate AdvReac Mild Rash Verified 07/21/19 20:56 [From Imitrex] Home Medications: Ambulatory Orders Aspirin [Aspirin EC] 325 mg PO DAILY 12/29/13 Famotidine [Pepcid -] 20 mg PO HS 12/29/13 Fenofibrate [Fenofibrate -] 160 mg PO DAILY 12/29/13 Gabapentin 400 mg PO 5XD 12/29/13 Metoprolol Tartrate [Lopressor -] 25 mg PO BID 12/29/13 Oxybutynin Chloride 5 mg PO DAILY 12/29/13 Pantoprazole Sodium 40 mg PO DAILY 12/29/13 Rosuvastatin Calcium [Crestor] 40 mg PO HS 12/29/13 Metformin HCl [Glucophage] 1,000 mg PO BID 09/18/15 Aspirin/Acetaminophen/Caffeine [Excedrin Migraine Caplet] 2 each PO BID PRN Sucralfate Oral Suspension [Carafate *Oral Susp*] 1 gm PO QID 06/26/16 Oxycodone HCl/Acetaminophen [Endocet 7.5-325 mg Tablet] 1 - 2 each PO Q6H PRN Cholecalciferol (Vitamin D3) [Vitamin D3] 1,000 unit PO DAILY 04/05/18 Cyanocobalamin (Vitamin B-12) [Vitamin B-12] 1,000 mcg PO DAILY 04/05/18 Gabapentin 400 mg PO ASDIR 11/09/18 Amoxicillin - [Amoxicillin 500mg Capsule -] 500 mg PO BID 07/21/19 Cardiac Disorders: Yes ([place]) COPD: No Diabetes: Yes GI Disorders: Yes (REFLUX) Hypercholesterolemia: Yes - Surgical History Abdominal Surgery: Yes Cardiac Surgery: Yes (STENTS X4) Cholecystectomy: Yes GI Surgery: Yes (ABD SURGURY) - Immunization History Td Vaccination: Yes TDAP Vaccination: Yes Immunization Up to Date: No - Psycho Social/Smoking Cessation Hx Smoking Status: Yes Smoking History: Current every day smoker Years of Tobacco Use: 30 Have you smoked in the past 12 months: Yes Number of Cigarettes Smoked Daily: 6 Cigars Per Day: 0 'Breaking Loose' booklet given: 03/07/19 Hx Alcohol Use: No Drug/Substance Use Hx: No Substance Use Type: None Hx Substance Use Treatment: No Discharge - Discharge Information Problems reviewed: Yes Clinical Impression/Diagnosis: Migraine, Neck pain Condition: Stable Disposition: HOME - Admission No - Follow up/Referral - Patient Discharge Instructions Additional Instructions: Return to the emergency department immediately with ANY new, persistent or worsening symptoms. Continue any medications as previously prescribed by your physician. You should follow up with your primary doctor as soon as possible regarding today's emergency department visit. . Please make sure your doctor reviews the results of your emergency evaluation. Thank you for coming to the Emergency Department today for your care. It was a pleasure to see you today. Please note that your evaluation is INCOMPLETE until you follow-up with your doctor. - Post Discharge Activity
[2019-09-05] MEDS ORDERED: HYDROmorphone HCL CARPU-JECT 1 MG/1 ML DISP.SYRIN IVPUSH ONE ×2 (22:49→23:03)
[2019-09-05 22:54] VITALS: BP 165/71; PULSE 70; TEMP 98.1; BMI 38.2
[2019-09-05] MEDS ORDERED: HYDROmorphone HCl 2 MG/ML VIAL ONE ×2 (22:55→23:40)
[2019-09-05] MEDS ORDERED: HYDROmorphone HCL CARPU-JECT 1 MG/1 ML DISP.SYRIN ONE (23:41)
== END 2019-09-06 00:20 | disposition home or self-care (01) ==
LOC: FER 22:41
PROC: 3E033NZ Introduction of Analgesics, Hypnotics, Sedatives into Peripheral Vein, Percutaneous Approach (ICD-10-PCS; principal; 2019-09-05)
PROC: 3E033GC Introduction of Other Therapeutic Substance into Peripheral Vein, Percutaneous Approach (ICD-10-PCS; 2019-09-05)
DX: G43.909 Migraine, unspecified, not intractable, without status migrainosus (principal); M54.2 Cervicalgia; E11.9 Type 2 diabetes mellitus without complications; I25.2 Old myocardial infarction; F17.210 Nicotine dependence, cigarettes, uncomplicated; K21.9 Gastro-esophageal reflux disease without esophagitis; E78.00 Pure hypercholesterolemia, unspecified; Z88.8 Allergy status to other drugs, medicaments and biological substances; Z79.84 Long term (current) use of oral hypoglycemic drugs; Z95.5 Presence of coronary angioplasty implant and graft
CPT/HCPCS: 99282-25

== ENCOUNTER 2019-09-25 21:36 | Emergency (ER) | payer OTHER, BC ==
[2019-09-25 21:50] VITALS: TEMP 98; BMI 29.7
[2019-09-25] MEDS ORDERED: HYDROmorphone HCL CARPU-JECT 2 MG/1 ML DISP.SYRIN IM ONE (22:02)
[2019-09-25] MEDS ORDERED: HYDROmorphone HCl 2 MG/ML VIAL ONE (22:36)
[2019-09-25 23:28] VITALS: BP 127/73; PULSE 75
--- NOTE | 2019-09-26 00:28 | PDOC ---
Documentation entered by Gavin Narayanan SCRIBE, acting as scribe for Perla Bar MD. Perla Bar MD: This documentation has been prepared by the Oracio dunn Aiswarya, SCRIBE, under my direction and personally reviewed by me in its entirety. I confirm that the documentation accurately reflects all work, treatment, procedures, and medical decision making performed by me. History of Present Illness - General Chief Complaint: Back Pain Stated Complaint: BACK/SHOULDER PAIN/LAINEZ Time Seen by Provider: 09/25/19 21:38 History Source: Patient Exam Limitations: No Limitations - History of Present Illness Initial Comments: 09/25/19 22:12 The patient is a 63 year old male, with a significant PMH of diabetes, heart attack, reflux and HLD, who presents to the emergency department with shoulder pain that began a week ago. The patient states constant left shoulder pain radiates to the left neck and back of his head. He mentions pain may be secondary to removing the portable air conditioner from the window and raking the leaves last week. The patient states pain is exacerbated with movement and experiences dry heaves. He reports he has been seeing a Pain Management physician for his chronic pain. Patient also notes abdomen pain every time he eats something. The patient denies chest pain, shortness of breath, headache and dizziness.Denies fever, chills, nausea, vomit, diarrhea and constipation.Denies dysuria, frequency, urgency and hematuria. Allergies: prochlorperazine maleate, sumatriptan Past surgical history: abdominal surgery, cardiac stent, cholecystectomy Social history: current everyday smoker PCP: Past History - Past Medical History Allergies/Adverse Reactions: Allergies Allergy/AdvReac Type Severity Reaction Status Date / Time prochlorperazine maleate AdvReac Intermediate Rash Verified 07/21/19 20:56 [From Compazine] sumatriptan [From Imitrex] AdvReac Mild Rash Verified 07/21/19 20:56 sumatriptan succinate AdvReac Mild Rash Verified 07/21/19 20:56 [From Imitrex] Home Medications: Ambulatory Orders Aspirin [Aspirin EC] 325 mg PO DAILY 12/29/13 Famotidine [Pepcid -] 20 mg PO HS 12/29/13 Fenofibrate [Fenofibrate -] 160 mg PO DAILY 12/29/13 Gabapentin 400 mg PO 5XD 12/29/13 Metoprolol Tartrate [Lopressor -] 25 mg PO BID 12/29/13 Oxybutynin Chloride 5 mg PO DAILY 12/29/13 Pantoprazole Sodium 40 mg PO DAILY 12/29/13 Rosuvastatin Calcium [Crestor] 40 mg PO HS 12/29/13 Metformin HCl [Glucophage] 1,000 mg PO BID 09/18/15 Aspirin/Acetaminophen/Caffeine [Excedrin Migraine Caplet] 2 each PO BID PRN Sucralfate Oral Suspension [Carafate *Oral Susp*] 1 gm PO QID 06/26/16 Oxycodone HCl/Acetaminophen [Endocet 7.5-325 mg Tablet] 1 - 2 each PO Q6H PRN Cholecalciferol (Vitamin D3) [Vitamin D3] 1,000 unit PO DAILY 04/05/18 Cyanocobalamin (Vitamin B-12) [Vitamin B-12] 1,000 mcg PO DAILY 04/05/18 Gabapentin 400 mg PO ASDIR 11/09/18 Cardiac Disorders: Yes ([place]) COPD: No Diabetes: Yes GI Disorders: Yes ([place]FL[place]) Hypercholesterolemia: Yes - Surgical History Abdominal Surgery: Yes Cardiac Surgery: Yes (STENTS X4) Cholecystectomy: Yes GI Surgery: Yes (ABD SURGURY) - Immunization History Td Vaccination: Yes TDAP Vaccination: Yes Immunization Up to Date: No - Psycho Social/Smoking Cessation Hx Smoking Status: Yes Smoking History: Current every day smoker Years of Tobacco Use: 30 Have you smoked in the past 12 months: Yes Number of Cigarettes Smoked Daily: 6 Cigars Per Day: 0 'Breaking Loose' booklet given: 03/07/19 Hx Alcohol Use: No Drug/Substance Use Hx: No Substance Use Type: None Hx Substance Use Treatment: No Review of Systems - Review of Systems Able to Perform ROS?: Yes Comments:: 09/25/19 22:12 GENERAL/CONSTITUTIONAL: No fever or chills. No weakness. HEAD, EYES, EARS, NOSE AND THROAT: No change in vision. No ear pain or discharge. No sore throat. CARDIOVASCULAR: No shortness of breath. RESPIRATORY: No cough, wheezing, or hemoptysis. GASTROINTESTINAL: No nausea, vomiting, diarrhea or constipation. GENITOURINARY: No dysuria, frequency, or change in urination. MUSCULOSKELETAL: +left shoulder pain SKIN: No rash NEUROLOGIC: No headache, vertigo, loss of consciousness, or change in strength/ sensation. ENDOCRINE: No increased thirst. No abnormal weight change. HEMATOLOGIC/LYMPHATIC: No anemia, easy bleeding, or history of blood clots. ALLERGIC/IMMUNOLOGIC: No hives or skin allergy. *Physical Exam - Vital Signs Last Vital Signs Temp Pulse Resp BP Pulse Ox 98 F 69 14 133/76 99 09/25/19 21:44 09/25/19 21:44 09/25/19 21:44 09/25/19 21:44 09/25/19 21:44 - Physical Exam Comments: 09/25/19 22:16 GENERAL: Awake, alert, and fully oriented, in mild distress secondary to headache pain HEAD: No signs of trauma EYES: PERRLA, EOMI, sclera anicteric, conjunctiva clear NECK: Normal ROM, supple, no lymphadenopathy, JVD, or masses +Left upper neck tenderness on palpation of the periscapular area with tenderness to the left trapezius muscle. ABDOMEN: Soft, nontender, normoactive bowel sounds. No guarding, no rebound. No masses EXTREMITIES: Briskly palpable radial pulse of the left arm. Distal left arm warm dry with good capillary refill. No gross neurodeficit. Remainder the extremity exam is normal NEUROLOGICAL: Cranial nerves II through XII grossly intact. Normal speech, normal gait SKIN: Warm, Dry, normal turgor, no rashes or lesions noted. ED Treatment Course - Medications Given in the ED: ED Medications Discontinued Medications Generic Name Dose Route Start Last Admin Trade Name Héctor PRN Reason Stop Dose Admin Diphenhydramine HCl 50 mg 09/25/19 22:03 09/25/19 22:10 Benadryl Injection - IM 09/25/19 22:04 50 mg ONCE ONE Administration Hydromorphone HCl 6 mg 09/25/19 22:02 09/25/19 22:05 Dilaudid Injection - IM 09/25/19 22:03 6 mg ONCE ONE Administration Medical Decision Making - Medical Decision Making This is a 63-year-old man, well-known to this ER with intermittent severe migraine episodes accompanied by left-sided neck and left shoulder pain presents with few day history of usual symptoms. Pain has been persistent despite use of at home medications. This episode was likely triggered by outdoor activities such as raking leaves as well as removing an air conditioning unit from a window a few days ago. Patient relates that the heel painter that he was followed by for years retired several months ago; his new heel painter has not yet performed any therapeutic injections but is planning on this during his next follow-up in the beginning of October. Patient also noted some increased abdominal discomfort after meals in the last several weeks. 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 Patient has not seen his novelties sales representative, Dr. Lauren recently. Exam as noted. Patient received his usual analgesic dose of Dilaudid 6 mg IM and Benadryl 50 mg IM. He reported significant relief in his migraine headache/left-sided neck pain and left shoulder discomfort after the medications. He was discharged awake and alert in the company of his with recommendations to avoid excessive strenuous activity as much as possible, to use his medications as previously prescribed and to return here if he has persistent pain. It is also recommended for him to follow-up with his novelties sales representative for evaluation of his recurrent postprandial pain. Discharge - Discharge Information Problems reviewed: Yes Clinical Impression/Diagnosis: Migraine, Chronic pain disorder Condition: Stable Disposition: HOME - Additional Discharge Information Prescription Drug Monitoring Program (I-STOP) results: I-STOP reviewed and no issues identified - Follow up/Referral - Patient Discharge Instructions Patient Printed Discharge Instructions: Migraine -- Adult Additional Instructions: Continue pain medications as needed Follow-up with your heel painter as scheduled Return if you have persistent shoulder/neck/migraine pain or develop chest/ persistent abdominal pain Follow-up with your novelties sales representative within the next week regarding pain after eating - Post Discharge Activity
== END 2019-09-25 23:34 | disposition home or self-care (01) ==
LOC: FER 21:36
PROC: 3E023GC Introduction of Other Therapeutic Substance into Muscle, Percutaneous Approach (ICD-10-PCS; principal; 2019-09-25)
PROC: 3E023NZ Introduction of Analgesics, Hypnotics, Sedatives into Muscle, Percutaneous Approach (ICD-10-PCS; 2019-09-25)
DX: G43.909 Migraine, unspecified, not intractable, without status migrainosus (principal); G89.29 Other chronic pain; Z88.8 Allergy status to other drugs, medicaments and biological substances
CPT/HCPCS: 96372; 99282-25

== ENCOUNTER 2019-11-17 22:06 | Emergency (ER) | payer OTHER, BC ==
[2019-11-17] MEDS ORDERED: HYDROmorphone HCL CARPU-JECT 2 MG/1 ML DISP.SYRIN IM STA ×2 (22:19→23:25)
[2019-11-17 22:27] VITALS: TEMP 98.3; BMI 37.5
[2019-11-17] MEDS ORDERED: HYDROmorphone HCl 2 MG/ML VIAL ONE ×2 (22:28→23:26)
--- NOTE | 2019-11-17 22:44 | PDOC ---
Documentation entered by Roz Porter SCRIBE, acting as scribe for Pro Palacios MD. Pro Palacios MD: This documentation has been prepared by the janiceibe, Roz Porter SCRIBE, under my direction and personally reviewed by me in its entirety. I confirm that the documentation accurately reflects all work, treatment, procedures, and medical decision making performed by me. 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 The patient reports he had an onset of neck pain, associated with left-sided facial numbness, migraines, nausea, left eye pressure , and constant shoulder blade pain. Denies any new neurological complaints. The patient reports he recently lost his mother and has been experiencing increased stress. Past History - Past Medical History Allergies/Adverse Reactions: Allergies Allergy/AdvReac Type Severity Reaction Status Date / Time prochlorperazine maleate AdvReac Intermediate Rash Verified 11/17/19 22:17 [From Compazine] sumatriptan [From Imitrex] AdvReac Mild Rash Verified 11/17/19 22:17 sumatriptan succinate AdvReac Mild Rash Verified 11/17/19 22:17 [From Imitrex] Home Medications: Ambulatory Orders Aspirin [Aspirin EC] 325 mg PO DAILY 12/29/13 Famotidine [Pepcid -] 20 mg PO HS 12/29/13 Fenofibrate [Fenofibrate -] 160 mg PO DAILY 12/29/13 Gabapentin 400 mg PO 5XD 12/29/13 Metoprolol Tartrate [Lopressor -] 25 mg PO BID 12/29/13 Oxybutynin Chloride 5 mg PO DAILY 12/29/13 Pantoprazole Sodium 40 mg PO DAILY 12/29/13 Rosuvastatin Calcium [Crestor] 40 mg PO HS 12/29/13 Metformin HCl [Glucophage] 1,000 mg PO BID 09/18/15 Aspirin/Acetaminophen/Caffeine [Excedrin Migraine Caplet] 2 each PO BID PRN Sucralfate Oral Suspension [Carafate *Oral Susp*] 1 gm PO QID 06/26/16 Oxycodone HCl/Acetaminophen [Endocet 7.5-325 mg Tablet] 1 - 2 each PO Q6H PRN Cholecalciferol (Vitamin D3) [Vitamin D3] 1,000 unit PO DAILY 04/05/18 Cyanocobalamin (Vitamin B-12) [Vitamin B-12] 1,000 mcg PO DAILY 04/05/18 Gabapentin 400 mg PO ASDIR 11/09/18 Cardiac Disorders: Yes ([place]) COPD: No Diabetes: Yes GI Disorders: Yes (REFLUX) Hypercholesterolemia: Yes - Surgical History Abdominal Surgery: Yes Cardiac Surgery: Yes (STENTS X4) Cholecystectomy: Yes GI Surgery: Yes (ABD SURGURY) - Immunization History Td Vaccination: Yes TDAP Vaccination: Yes Immunization Up to Date: No - Psycho Social/Smoking Cessation Hx Smoking Status: Yes Smoking History: Current every day smoker Years of Tobacco Use: 30 Have you smoked in the past 12 months: Yes Number of Cigarettes Smoked Daily: 6 Cigars Per Day: 0 'Breaking Loose' booklet given: 03/07/19 Hx Alcohol Use: No Drug/Substance Use Hx: No Substance Use Type: None Hx Substance Use Treatment: No Review of Systems - Review of Systems Able to Perform ROS?: Yes Comments:: 11/17/19 22:35 Constitutional - Pt denies Fever, Chills, weakness, HEENT: +left eye pressure denies vision changes, sore throat Respiratory: Denies cough, sob, hemoptysis Cardiac: denies chest pain, palpitations, light headedness, leg swelling Abd/GI: denies abd pain, nausea, vomiting, blood per rectum, melena, diarrhea : denies dysuria, frequency, discharge Musculskelatal - +neck pain, shoulder pain. denies back pain, joint swelling skin - denies bruising, erythema, rash neurological: +headache and facial numbness. Denies focal weakness, tingling, ataxia, weakness hematologic: denies anemia, easy bruising, easy bleeding. *Physical Exam - Physical Exam 11/17/19 22:37 CONSTITUTIONAL: Well-appearing; well-nourished; in no apparent distress EYES: PERRL; EOM intact ENMT: External appears normal NECK: Supple; non-tender, muscular tenderness to the neck. EXT: Normal ROM in all four extremities; non-tender SKIN: Warm, dry, no rash NEURO: No focal neurological deficiencies. Medical Decision Making - Medical Decision Making 11/18/19 06:33 acute migraine analgesia Discharge - Discharge Information Problems reviewed: Yes Clinical Impression/Diagnosis: Migraine Qualifiers: Migraine type: unspecified Status migrainosus presence: without status migrainosus Intractability: not intractable Qualified Code(s): G43.909 - Migraine, unspecified, not intractable, without status migrainosus Condition: Stable Disposition: HOME - Follow up/Referral - Patient Discharge Instructions Patient Printed Discharge Instructions: DI for Migraine - Post Discharge Activity
[2019-11-17 23:34] VITALS: BP 128/76; PULSE 72
== END 2019-11-17 23:53 | disposition home or self-care (01) ==
LOC: FER 22:06
PROC: 3E023GC Introduction of Other Therapeutic Substance into Muscle, Percutaneous Approach (ICD-10-PCS; principal; 2019-11-17)
PROC: 3E0233Z Introduction of Anti-inflammatory into Muscle, Percutaneous Approach (ICD-10-PCS; 2019-11-17)
DX: G43.909 Migraine, unspecified, not intractable, without status migrainosus (principal); F17.210 Nicotine dependence, cigarettes, uncomplicated; Z88.8 Allergy status to other drugs, medicaments and biological substances; K21.9 Gastro-esophageal reflux disease without esophagitis; Z95.5 Presence of coronary angioplasty implant and graft
CPT/HCPCS: 99282-25

== ENCOUNTER 2019-12-19 19:52 | Emergency (ER) | payer OTHER, BC ==
[2019-12-19 20:05] VITALS: BP 170/86; PULSE 85; TEMP 97.9; BMI 37.8
[2019-12-19] MEDS ORDERED: HYDROmorphone HCL CARPU-JECT 1 MG/1 ML DISP.SYRIN IM STA ×2 (20:07→20:59)
[2019-12-19] MEDS ORDERED: HYDROmorphone HCl 2 MG/ML VIAL ONE ×2 (20:10→21:02)
--- NOTE | 2019-12-19 20:50 | PDOC ---
Documentation entered by Papito Kruger SCRIBE, acting as scribe for Yury Sidhu MD. Yury Sidhu MD: This documentation has been prepared by the Slick dunn Nirvannie, SCRIBE, under my direction and personally reviewed by me in its entirety. I confirm that the documentation accurately reflects all work, treatment, procedures, and medical decision making performed by me. 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 Patient presents to the ED with two days of neck pain that radiates down to his left arm. Patient describes pain 7/10 in the neck that begins as a stabbing and turns into burning pain with associated mild headache. Patient took a percocet this morning with no relief. Patient comes in intermittently usually about once a month for pain medication. Patient does have a pain specialist that he follows up with. Patient denies any focal changes in strength and sensation. He denies any numbness and tingling. Denies any strenuous activity. 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 Patient also has a PMH of diabetes, heart attack, reflux and HLD. MEDICATIONS: reviewed ALLERGIES: As per nursing notes ROS General: No fevers or chills, no weakness, no weight loss HEENT: No change in vision. No sore throat,. No ear pain CardioVascular: No chest pain or shortness of breath Respiratory:No cough, or wheezing. Gastrointestinal: no nausea, vomiting, diarrhea or constipation, No rectal bleeding Genitourinary: No dysuria, hematuria, or frequency Musculoskeletal: + Neck pain. Neurologic: +headache. No vertigo, dizziness or loss of consciousness Psychiatric: nor depression Skin: No rashes or easy bruising Endocrine: no increased thirst or abnormal weight change Allergic: no skin or latex allergy All other systems reviewed and normal PE GENERAL: The patient is awake, alert, and fully oriented, in no acute distress. HEAD: Normal with no signs of trauma. EYES: Pupils equal, round and reactive to light, extraocular movements intact, sclera anicteric, conjunctiva clear. NECK: +mild tenderness and spasming to the left lateral neck and shoulder. EXTREMITIES: Normal range of motion, no edema. NEUROLOGICAL: Normal speech, normal gait. PSYCH: Normal mood, normal affect. SKIN: Warm, Dry, normal turgor, no rashes or lesions noted. Assessment and plan: This is a 64-year-old male who comes in complaining of headache, left neck pain radiating to left upper shoulder. Patient has a long history of chronic pain secondary to a Workmen's Comp. injury. Patient is well- known to me and comes in intermittently when he is unable to manage his pain with his usual pain medication. Patient denies any new numbness, weakness or symptoms. Patient given pain medications with improvement of his symptoms and discharged home. 12/19/19 21:34 Past History - Past Medical History Allergies/Adverse Reactions: Allergies Allergy/AdvReac Type Severity Reaction Status Date / Time prochlorperazine maleate AdvReac Intermediate Rash Verified 11/17/19 22:17 [From Compazine] sumatriptan [From Imitrex] AdvReac Mild Rash Verified 11/17/19 22:17 sumatriptan succinate AdvReac Mild Rash Verified 11/17/19 22:17 [From Imitrex] Home Medications: Ambulatory Orders Aspirin [Aspirin EC] 325 mg PO DAILY 12/29/13 Famotidine [Pepcid -] 20 mg PO HS 12/29/13 Fenofibrate [Fenofibrate -] 160 mg PO DAILY 12/29/13 Gabapentin 400 mg PO 5XD 12/29/13 Metoprolol Tartrate [Lopressor -] 25 mg PO BID 12/29/13 Oxybutynin Chloride 5 mg PO DAILY 12/29/13 Pantoprazole Sodium 40 mg PO DAILY 12/29/13 Rosuvastatin Calcium [Crestor] 40 mg PO HS 12/29/13 Metformin HCl [Glucophage] 1,000 mg PO BID 09/18/15 Aspirin/Acetaminophen/Caffeine [Excedrin Migraine Caplet] 2 each PO BID PRN Sucralfate Oral Suspension [Carafate *Oral Susp*] 1 gm PO QID 06/26/16 Oxycodone HCl/Acetaminophen [Endocet 7.5-325 mg Tablet] 1 - 2 each PO Q6H PRN Cholecalciferol (Vitamin D3) [Vitamin D3] 1,000 unit PO DAILY 04/05/18 Cyanocobalamin (Vitamin B-12) [Vitamin B-12] 1,000 mcg PO DAILY 04/05/18 Gabapentin 400 mg PO ASDIR 11/09/18 Cardiac Disorders: Yes ([place]) COPD: No Diabetes: Yes GI Disorders: Yes (REFLUX) Hypercholesterolemia: Yes - Surgical History Abdominal Surgery: Yes Cardiac Surgery: Yes (STENTS X4) Cholecystectomy: Yes GI Surgery: Yes (ABD SURGURY) - Immunization History Td Vaccination: Yes TDAP Vaccination: Yes Immunization Up to Date: No - Psycho Social/Smoking Cessation Hx Smoking Status: Yes Smoking History: Current every day smoker Years of Tobacco Use: 30 Have you smoked in the past 12 months: Yes Number of Cigarettes Smoked Daily: 6 Cigars Per Day: 0 'Breaking Loose' booklet given: 03/07/19 Hx Alcohol Use: No Drug/Substance Use Hx: No Substance Use Type: None Hx Substance Use Treatment: No *Physical Exam - Vital Signs Last Vital Signs Temp Pulse Resp BP Pulse Ox 97.9 F 85 18 170/86 98 12/19/19 19:53 12/19/19 19:53 12/19/19 19:53 12/19/19 19:53 12/19/19 19:53 ED Treatment Course - Medications Given in the ED: ED Medications Discontinued Medications Generic Name Dose Route Start Last Admin Trade Name Héctor PRN Reason Stop Dose Admin Diphenhydramine HCl 50 mg 12/19/19 20:07 12/19/19 20:15 Benadryl Injection - IM 12/19/19 20:08 50 mg ONCE STA Administration Hydromorphone HCl 6 mg 12/19/19 20:07 12/19/19 20:16 Dilaudid Injection - IM 12/19/19 20:08 6 mg ONCE STA Administration Discharge - Discharge Information Problems reviewed: Yes Clinical Impression/Diagnosis: Neck pain, Headache Condition: Stable Disposition: HOME - Admission No - Follow up/Referral - Patient Discharge Instructions Additional Instructions: Continue to take your pain medications as prescribed. Return to the emergency department immediately with ANY new, persistent or worsening symptoms. Continue any medications as previously prescribed by your physician. You should follow up with your primary doctor as soon as possible regarding today's emergency department visit. . Please make sure your doctor reviews the results of your emergency evaluation. Thank you for coming to the Emergency Department today for your care. It was a pleasure to see you today. Please note that your evaluation is INCOMPLETE until you follow-up with your doctor. - Post Discharge Activity
[2019-12-19] MEDS ORDERED: HYDROmorphone HCL CARPU-JECT 1 MG/1 ML DISP.SYRIN ONE (21:02)
== END 2019-12-19 21:46 | disposition home or self-care (01) ==
LOC: FER 19:52
PROC: 3E033GC Introduction of Other Therapeutic Substance into Peripheral Vein, Percutaneous Approach (ICD-10-PCS; principal; 2019-12-19)
PROC: 3E033NZ Introduction of Analgesics, Hypnotics, Sedatives into Peripheral Vein, Percutaneous Approach (ICD-10-PCS; 2019-12-19)
DX: M54.2 Cervicalgia (principal); R51 Headache; Z88.8 Allergy status to other drugs, medicaments and biological substances; F17.210 Nicotine dependence, cigarettes, uncomplicated; Z95.5 Presence of coronary angioplasty implant and graft; I25.2 Old myocardial infarction; E11.9 Type 2 diabetes mellitus without complications; E78.00 Pure hypercholesterolemia, unspecified; K21.9 Gastro-esophageal reflux disease without esophagitis
CPT/HCPCS: 99282-25

== ENCOUNTER 2020-01-16 21:06 | Emergency (ER) | payer OTHER, BC ==
[2020-01-16] MEDS ORDERED: HYDROmorphone HCL CARPU-JECT 1 MG/1 ML DISP.SYRIN IM ONE ×2 (21:10→22:13)
[2020-01-16] MEDS ORDERED: HYDROmorphone HCl 2 MG/ML VIAL ONE (21:15)
--- NOTE | 2020-01-16 21:34 | PDOC ---
Documentation entered by Mercedes Brown SCRIBE, acting as scribe for Yury Sidhu MD. Yury Sidhu MD: This documentation has been prepared by the Stephanie dunn Torie, SCRIBE, under my direction and personally reviewed by me in its entirety. I confirm that the documentation accurately reflects all work, treatment, procedures, and medical decision making performed by me. 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 Patient presents to the ED with left headache, neck and shoulder pain. Patient also reports chest pain. Patient states he took 4 percocet today for his pain, with no relief. Patient also reported nausea earlier today. Adult ROS General: No fevers or chills, no weakness, no weight loss HEENT: No change in vision. No sore throat,. No ear pain CardioVascular: +Chest Pain. No shortness of breath Respiratory:No cough, or wheezing. Gastrointestinal: +Nausea. no vomiting, diarrhea or constipation, No rectal bleeding Genitourinary: No dysuria, hematuria, or frequency Musculoskeletal: +neck and shoulder pain. Neurologic: +Headache. No vertigo, dizziness or loss of consciousness Psychiatric: nor depression Skin: No rashes or easy bruising Endocrine: no increased thirst or abnormal weight change Allergic: no skin or latex allergy All other systems reviewed and normal Adult Exam: General: Well-nourished well-developed individual, no acute distress HEENT: Throat: Normal, tonsils normal, no erythema or exudate Neck: Supple, no meningeal signs, no lymphadenopathy Eyes::Pupils equal reactive and round, extraocular motion intact Chest: Nontender to palpation Cardiac: S1-S2 normal, regular rate and rhythm, no murmurs rubs or gallops Respiratory: Lungs clear to auscultation bilateral Abdomen: Extremities: +tenderness to palpation left shoulder and upper neck. Warm, dry, no cyanosis, clubbing, or edema Skin: No rashes Neuro: Alert and oriented x3, nonfocal exam, grossly intact, normal gait Psych: Normal mood and affect 01/16/20 21:31 Assessment and plan: This is a 64-year-old male well-known to me from multiple ED visits for his chronic headaches neck and shoulder pain. 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 Patient comes in with his typical headache and neck and shoulder pain secondary to his injuries. 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 01/16/20 22:13 Reevaluation patient feels much better we will give him another 3 of Dilaudid and once cardiac enzymes come back negative he can be discharged home Past History - Past Medical History Allergies/Adverse Reactions: Allergies Allergy/AdvReac Type Severity Reaction Status Date / Time prochlorperazine maleate AdvReac Intermediate Rash Verified 01/16/20 21:34 [From Compazine] sumatriptan [From Imitrex] AdvReac Mild Rash Verified 01/16/20 21:34 sumatriptan succinate AdvReac Mild Rash Verified 01/16/20 21:34 [From Imitrex] Home Medications: Ambulatory Orders Aspirin [Aspirin EC] 325 mg PO DAILY 12/29/13 Famotidine [Pepcid -] 20 mg PO HS 12/29/13 Fenofibrate [Fenofibrate -] 160 mg PO DAILY 12/29/13 Gabapentin 400 mg PO 5XD 12/29/13 Metoprolol Tartrate [Lopressor -] 25 mg PO BID 12/29/13 Oxybutynin Chloride 5 mg PO DAILY 12/29/13 Pantoprazole Sodium 40 mg PO DAILY 12/29/13 Rosuvastatin Calcium [Crestor] 40 mg PO HS 12/29/13 Metformin HCl [Glucophage] 1,000 mg PO BID 09/18/15 Aspirin/Acetaminophen/Caffeine [Excedrin Migraine Caplet] 2 each PO BID PRN 06/26/16 Sucralfate Oral Suspension [Carafate *Oral Susp*] 1 gm PO QID 06/26/16 Oxycodone HCl/Acetaminophen [Endocet 7.5-325 mg Tablet] 1 - 2 each PO Q6H PRN 12/22/17 Cholecalciferol (Vitamin D3) [Vitamin D3] 1,000 unit PO DAILY 04/05/18 Cyanocobalamin (Vitamin B-12) [Vitamin B-12] 1,000 mcg PO DAILY 04/05/18 Cardiac Disorders: Yes ([place]) COPD: No Diabetes: Yes GI Disorders: Yes (REFLUX) Hypercholesterolemia: Yes - Surgical History Abdominal Surgery: Yes Cardiac Surgery: Yes (STENTS X4) Cholecystectomy: Yes GI Surgery: Yes (ABD SURGURY) - Immunization History Td Vaccination: Yes TDAP Vaccination: Yes Immunization Up to Date: No - Psycho Social/Smoking Cessation Hx Smoking Status: Yes Smoking History: Current every day smoker Years of Tobacco Use: 30 Have you smoked in the past 12 months: Yes Number of Cigarettes Smoked Daily: 6 Cigars Per Day: 0 'Breaking Loose' booklet given: 03/07/19 Hx Alcohol Use: No Drug/Substance Use Hx: No Substance Use Type: None Hx Substance Use Treatment: No Discharge - Discharge Information Problems reviewed: Yes Clinical Impression/Diagnosis: Migraine, Neck pain Condition: Good Disposition: HOME - Admission No - Follow up/Referral Referrals: Sree Briones MD [Primary Care Provider] - - Patient Discharge Instructions Additional Instructions: Continue all your pain medications as prescribed. Return to the emergency department immediately with ANY new, persistent or worsening symptoms. Continue any medications as previously prescribed by your physician. You should follow up with your primary doctor as soon as possible regarding today's emergency department visit. . Please make sure your doctor reviews the results of your emergency evaluation. Thank you for coming to the Emergency Department today for your care. It was a pleasure to see you today. Please note that your evaluation is INCOMPLETE until you follow-up with your doctor. - Post Discharge Activity
[2020-01-16 21:58] VITALS: BP 168/85; PULSE 76; TEMP 98.2; BMI 38.9
--- NOTE | 2020-01-17 11:00 | EKG ---
Test Reason : Blood Pressure : / mmHG Vent. Rate : 071 BPM Atrial Rate : 071 BPM P-R Int : 256 ms QRS Dur : 116 ms QT Int : 418 ms P-R-T Axes : -12 -39 002 degrees QTc Int : 454 ms SINUS RHYTHM WITH 1ST DEGREE A-V BLOCK LEFT AXIS DEVIATION INCOMPLETE RIGHT BUNDLE BRANCH BLOCK INFERIOR INFARCT (CITED ON OR BEFORE 09-APR-2018) ABNORMAL ECG WHEN COMPARED WITH ECG OF 19-FEB-2019 02:15, PREMATURE ATRIAL COMPLEXES ARE NO LONGER PRESENT INCOMPLETE RIGHT BUNDLE BRANCH BLOCK IS NOW PRESENT Confirmed by SAQIB PERAZA MD ([id number]) on 01/17/2020 10:59:59 AM Referred By: DR TROY Confirmed By:SAQIB PERAZA MD
== END 2020-01-16 22:44 | disposition home or self-care (01) ==
LOC: FER 21:06
PROC: 3E023GC Introduction of Other Therapeutic Substance into Muscle, Percutaneous Approach (ICD-10-PCS; principal; 2020-01-16)
PROC: 3E023NZ Introduction of Analgesics, Hypnotics, Sedatives into Muscle, Percutaneous Approach (ICD-10-PCS; 2020-01-16)
DX: G43.909 Migraine, unspecified, not intractable, without status migrainosus (principal); M54.2 Cervicalgia; Z88.8 Allergy status to other drugs, medicaments and biological substances; F17.210 Nicotine dependence, cigarettes, uncomplicated; Z95.5 Presence of coronary angioplasty implant and graft; K21.9 Gastro-esophageal reflux disease without esophagitis; I25.2 Old myocardial infarction; E78.00 Pure hypercholesterolemia, unspecified
CPT/HCPCS: 36415; 82550; 84484; 93005; 96372; 99284-25

== ENCOUNTER 2020-05-28 21:25 | Emergency (ER) | payer OTHER, BC ==
[2020-05-28 21:41] VITALS: BP 145/66; PULSE 82; TEMP 98.4; BMI 38.7
[2020-05-28] MEDS ORDERED: HYDROmorphone HCL CARPU-JECT 1 MG/1 ML DISP.SYRIN IM ONE ×2 (22:00→23:12)
[2020-05-28] MEDS ORDERED: HYDROmorphone HCl 2 MG/ML VIAL ONE ×2 (22:07→23:21)
--- NOTE | 2020-05-28 22:32 | PDOC ---
Documentation entered by Berry Samuels SCRIBE, acting as scribe for Yury Sidhu MD. Yury Sidhu MD: This documentation has been prepared by the Arvind dunn Angel, SCRIBE, under my direction and personally reviewed by me in its entirety. I confirm that the documentation accurately reflects all work, treatment, procedures, and medical decision making performed by me. 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 05/28/20 22:31 Assessment and plan: This is a 64-year-old male who is well-known to me. Patient has chronic neck and shoulder pain for which she comes intermittently for medication. Patient has a pain psychiatric clinical nurse specialist that he follows up with and is med compliant. Patient given his usual dose of Dilaudid and Benadryl and felt better and was discharged home. Past History - Medical History Allergies/Adverse Reactions: Allergies Allergy/AdvReac Type Severity Reaction Status Date / Time prochlorperazine maleate AdvReac Intermediate Rash Verified 04/30/20 20:02 [From Compazine] sumatriptan [From Imitrex] AdvReac Mild Rash Verified 04/30/20 20:02 sumatriptan succinate AdvReac Mild Rash Verified 04/30/20 20:02 [From Imitrex] Home Medications: Ambulatory Orders Aspirin [Aspirin EC] 325 mg PO DAILY 04/30/20 Cholecalciferol (Vitamin D3) [Vitamin D3] 1,000 unit PO DAILY 04/30/20 Cyanocobalamin (Vitamin B-12) [Vitamin B12] 1,000 mg PO DAILY 04/30/20 Fenofibrate 160 mg PO DAILY 04/30/20 Gabapentin 400 mg PO ASDIR 04/30/20 Hyoscyamine Sulfate [Levsin-Sl] 0.125 mg SL TID 04/30/20 Losartan Potassium 50 mg PO DAILY 04/30/20 Metformin HCl [Glucophage] 1,000 mg PO BID 04/30/20 Metoprolol Succinate [Toprol Xl] 25 mg PO BID 04/30/20 Oxybutynin Chloride 5 mg PO DAILY 04/30/20 Pantoprazole Sodium 40 mg PO BID 04/30/20 Percocet 5-325 mg Tablet 1 tab PO QID 04/30/20 Rosuvastatin Calcium [Crestor] 40 mg PO HS 04/30/20 Sucralfate Oral Suspension [Carafate *Oral Susp*] 2 tsp PO QID PRN 04/30/20 Cardiac Disorders: Yes ([place]) COPD: No Diabetes: Yes GI Disorders: Yes (REFLUX) Hypercholesterolemia: Yes Other medical history: CHRONIC PAIN - Surgical History Abdominal Surgery: Yes Cardiac Surgery: Yes (STENTS X4) Cholecystectomy: Yes GI Surgery: Yes (ABD SURGURY) - Immunization History Td Vaccination: Yes TDAP Vaccination: Yes Immunization Up to Date: No - Psycho-Social/Smoking History Smoking Status: Yes Smoking History: Current some day smoker Years of Tobacco Use: 30 Have you smoked in the past 12 months: No Number of Cigarettes Smoked Daily: 6 Cigars Per Day: 0 Information on smoking cessation initiated: Yes 'Breaking Loose' booklet given: 03/07/19 Review of Systems - Review of Systems Able to Perform ROS?: Yes Comments:: 05/28/20 22:14 General: No fevers or chills, no weakness, no weight loss HEENT: No change in vision. No sore throat,. No ear pain CardioVascular: No chest pain or shortness of breath Respiratory:No cough, or wheezing. Gastrointestinal: no nausea, vomiting, diarrhea or constipation, No rectal bleeding Genitourinary: No dysuria, hematuria, or frequency Musculoskeletal: +Neck and left shoulder pain. Neurologic: No headache, vertigo, dizziness or loss of consciousness Psychiatric: nor depression Skin: No rashes or easy bruising Endocrine: no increased thirst or abnormal weight change Allergic: no skin or latex allergy All other systems reviewed and normal *Physical Exam - Vital Signs Last Vital Signs Temp Pulse Resp BP Pulse Ox 98.4 F 82 20 145/66 99 05/28/20 21:26 05/28/20 21:26 05/28/20 21:26 05/28/20 21:26 05/28/20 21:26 - Physical Exam 05/28/20 22:19 GENERAL: The patient is awake, alert, and fully oriented, in no acute distress. HEAD: Normal with no signs of trauma. EYES: Pupils equal, round and reactive to light, extraocular movements intact, sclera anicteric, conjunctiva clear. NECK: +Tenderness of the lateral neck, pain reproduced on palpation. Decreased range of motion. BACK: No cervical spine tenderness. EXTREMITIES: +Tenderness of the left shoulder, pain reproduced on palpation. Decreased range of motion. NEUROLOGICAL: Normal speech, normal gait. PSYCH: Normal mood, normal affect. SKIN: Warm, Dry, normal turgor, no rashes or lesions noted. Discharge - Discharge Information Problems reviewed: Yes Clinical Impression/Diagnosis: Neck pain, Neck pain, musculoskeletal, Migraine Condition: Stable Disposition: HOME - Admission No - Follow up/Referral - Patient Discharge Instructions Additional Instructions: Continue all your medications as prescribed. Return to the emergency department immediately with ANY new, persistent or w orsening symptoms. Continue any medications as previously prescribed by your physician. You should follow up with your primary doctor as soon as possible regarding today's emergency department visit. . Please make sure your doctor reviews the results of your emergency evaluation. Thank you for coming to the Emergency Department today for your care. It was a pleasure to see you today. Please note that your evaluation is INCOMPLETE until you follow-up with your doctor. - Post Discharge Activity
[2020-05-28] MEDS ORDERED: HYDROmorphone HCL CARPU-JECT 1 MG/1 ML DISP.SYRIN ONE (23:21)
== END 2020-05-28 23:39 | disposition home or self-care (01) ==
LOC: FER 21:25
PROC: 3E033NZ Introduction of Analgesics, Hypnotics, Sedatives into Peripheral Vein, Percutaneous Approach (ICD-10-PCS; principal; 2020-05-28)
DX: M54.2 Cervicalgia (principal); G43.909 Migraine, unspecified, not intractable, without status migrainosus
CPT/HCPCS: 99284-25

== ENCOUNTER 2020-08-27 19:28 | Emergency (ER) | payer OTHER, BC ==
--- OUTSIDE RECORDS SUMMARY | 2020-08-27 19:35 | XMS ---
:1955 Author Organization [facility] Care Team Providers Name Role Phone Oumar Almeida MD Unavailable Unavailable Oumar Almeida MD Unavailable Unavailable Oumar Almeida MD Unavailable Unavailable Oumar Almeida MD Unavailable Unavailable Oumar Almeida MD Unavailable Unavailable Oumar Almeida MD Unavailable Unavailable Jean Doran MD Unavailable Unavailable Jean Doran MD Unavailable Unavailable Jean Doran MD Unavailable Unavailable Jean Doran MD Unavailable Unavailable Jean Doran MD Unavailable Unavailable Jean Doran MD Unavailable Unavailable Jean Doran MD Unavailable Unavailable Jean Doran MD Unavailable Unavailable Jean Doran MD Unavailable Unavailable Jean Doran MD Unavailable Unavailable Re-disclosure Warning The records that you are about to access may contain information from federally- assisted alcohol or drug abuse programs. If such information is present, then the following federally mandated warning applies: This information has been disclosed to you from records protected by federal confidentiality rules (42 CFR part 2). The federal rules prohibit you from making any further disclosure of this information unless further disclosure is expressly permitted by the written consent of the person to whom it pertains or as otherwise permitted by 42 CFR part 2. A general authorization for the release of medical or other information is NOT sufficient for this purpose. The Federal rules restrict any use of the information to criminally investigate or prosecute any alcohol or drug abuse patient.The records that you are about to access may contain highly sensitive health information, the redisclosure of which is protected by Article 27-F of the [facility] Public Health law. If you continue you may haveaccess to information: Regarding HIV / AIDS; Provided by facilities licensed or operated by the [facility] Office of Mental Health; or Provided by the [facility] Office for People With Developmental Disabilities. If such information is present, then the following [facility] mandated warning applies: This information has been disclosed to you from confidential records which are protected by state law. State law prohibits you from making any further disclosure of this information without the specific written consent of the person to whom it pertains, or as otherwise permitted by law. Any unauthorized further disclosure in violation of state law may result in a fine or snf sentence or both. A general authorization for the release of medical or other information is NOT sufficient authorization for further disclosure. Family History Family Member Family Member Family Member Date of Description Data Source(s) Name Gender Status Status Unknown [facility] [facility]) Encounters Encounter Providers Location Date Indications Data Source(s ) Outpatient Attender: Oumar 06/24/2020 DIAMOND Almeida MDReferrer: 01:45:00 PM Medica l) Jean Doran MD EDT Outpatient Attender: Oumar 06/22/2020 DIAMOND Almeida MD 02:31:00 PM Medical) EDT Outpatient 06/16/2020 Jh cole 11:15:00 AM [facility] EDT - 06/16/2020 11:50:34 AM EDT Patient discharged. Outpatient 06/09/2020 10:45:00 AM Case Ramirez [facility] Outpatient Attender: Jean 05/22/2020 08:36:00 AM DIAMOND Doran MD EDT Medical) Outpatient Attender: Oumar Almeida 04/23/2020 12:26:00 PM DIAMOND Waddell MD T Medical) Outpatient Attender: Oumar Almeida 04/15/2020 10:45:00 AM NEXTGEN ([place] MDReferrer: Jean GRIJALVAT Medic gabriel Doran MD Outpatient Attender: Jean 02/25/2020 12:34:00 PM NEXTGEN (Javier CELIS Medical) Outpatient Attender: Jean 01/27/2020 12:36:00 PM DIAMOND ([facility] Medical) Outpatient Attender: Jean 01/24/2020 04:45:00 PM DIAMOND ([facility] Medical) Outpatient Attender: Oumar Almeida 01/13/2020 09:45:00 AM YIMIGEN ([facility] Medical) Outpatient Attender: Jean 01/11/2020 03:45:00 PM DIAMOND ([facility] Medical) Outpatient Attender: Jean 12/19/2019 09:15:00 AM DIAMOND ([facility] Medical) Outpatient Attender: Oumar Almeida 12/12/2019 09:15:00 AM DIAMOND ([place] MDReferrer: Oumar luu MD Outpatient Attender: Jean 12/06/2019 04:07:00 PM DIAMOND (Javier Doran MD EST Medical) Outpatient Attender: Oumar Almeida 11/11/2019 02:48:00 PM DIAMOND ([facility] Medical) Outpatient Attender: Jean 10/17/2019 10:26:00 AM DIAMOND ([facility] Medical) Outpatient 07/09/2019 12:55:53 PM Case Ramirez [facility] Outpatient Attender: Jean 07/08/2019 01:13:00 PM NEXT (Javier Doran MD, EDT Medical) Outpatient Attender: Jean 07/03/2019 11:19:00 AM NEXTGEN (Javier Doran MD, EDT Medical) Outpatient Attender: Jean 07/01/2019 12:16:00 PM YIMIGEN (Javier Doran MD EDT Medical) Medications Medication Brand Start Product Dose Route Administrative Pharmacy St atus Indications Reaction Description Data Name Date Form Instructions Instructions Source(s) Oxybutynin oxybut 06/16/ 5 mg Oral active Nocturia Take 1 Tab [place] chloride 5 ynin 2020 by mouth [facility] MG Oral (DITRO 12:00: daily. Charit y Tablet RODRIGUEZ) 5 00 AM Health oxybutynin mg EDT System In c (DITROPAN) tablet 5 mg tablet Nocturia Oxybutynin oxybutynin 05/28/2020 5 mg Oral aborted Nocturia Take 1 Bon chloride 5 (DITROPAN) 5 12:00:00 AM Tab by [facility] MG Oral mg tablet EDT mouth Charit y Tablet daily. Health oxybutynin System (DITROPAN) 5 Inc mg tablet Nocturia Metformin metformin 05/22/2020 TABLET 1.00 ORAL active take 1 NEXTGEN hydrochloride 1,000 mg 12:00:00 AM {tablet} tablet ([place] 1000 MG Oral tablet EDT by oral Me dical) Tablet route 2 metformin times 1,000 mg every tablet day with morning and evening meals Rosuvastatin Crestor 40 04/15/2020 TABLET ORAL active rosuvast NEXTGEN calcium 40 MG mg tablet 12:00:00 AM atin ([place] Oral Tablet EDT calcium Medic al) [Crestor] 40 MG Crestor 40 mg Oral tablet Tablet [Crestor ] Nitroglycerin nitroglyce 04/15/2020 [address]T [address] 1 NEXTGEN 0.6 MG rin 0.6 mg 12:00:00 AM {tablet} NGUAL tablet ([place] Sublingual sublingual EDT by Med ica) Tablet tablet sublingu nitroglycerin al route 0.6 mg at 1st sublingual sign of tablet attack; may repeat every 5 minutes up to 3 tabs; if norelief seek medical help dapagliflozin Farxiga 5 04/15/2020 TABLET 1.00 ORAL active dapaglif NEXTGEN 5 MG Oral mg tablet 12:00:00 AM {tablet} lozin 5 ([place] Tablet EDT MG Oral Medical) [Farxiga] Tablet Farxiga 5 mg [Farxiga tablet ] Losartan losartan 04/15/2020 TABLET 1.00 ORAL active ta ke 1 NEXTGEN Potassium 50 50 mg 12:00:00 AM {tablet} tablet ([place] MG Oral Tablet tablet EDT by oral Medical) losartan 50 mg route tablet every day Nitroglycerin nitroglyce 04/15/2020 active Bon 0.6 MG rin 12:00:00 AM [facility] Sublingual (NITROQUIC EDT Subha rity Tablet K) 0.6 mg Health nitroglycerin SL tablet S [facility] (NITROQUICK) 0.6 mg SL tablet 24 HR Nicotine NICOTINE 02/25/2020 PATCH 1 {patch} TRANS active APPLY NEXTGEN 0.875 MG/HR 21MG/24HR 12:00:00 AM DERMA ONE ([place] Transdermal PT24 EDT L PATCH Medical ) Patch NICOTINE DAILY 21MG/24HR PT24 AND REMOVE AT BEDTIME Azithromycin azithromyc 01/24/2020 TABLET 1.00 ORAL complet take 1 NEXTGEN 500 MG Oral in 500 mg 12:00:00 AM tablet ed tablet ([place] Tablet tablet EDT by oral Medical) azithromycin route 500 mg tablet every day for 3 days Ondansetron 4 Zofran 4 01/24/2020 TABLET 2 ORAL complet Ondanset NEXTGEN MG Oral Tablet mg tablet 12:00:00 AM {tablet} ed jc 4 MG ([place] [Zofran] EDT Oral Medical) Zofran 4 mg Tablet tablet [Zofran] Metformin metformin 12/19/2019 TABLET 1.00 ORAL complet take 1 NEXTGEN hydrochloride 1,000 mg 12:00:00 AM {tablet} ed tablet ([place] 1000 MG Oral tablet EST by oral Me dical) Tablet route 2 metformin times 1,000 mg every tablet day with morning and evening meals Nicotine 2 MG Nicorette 12/19/2019 GUM 1.00 BUCCA active nicotine NEXTGEN Chewing Gum 2 mg gum 12:00:00 AM {piece'of L 2 MG ([place] [Nicorette] EST 'gum} Chewing [facility] sterling) Nicorette 2 mg Gum gum [Nicoret te] Clindamycin clindamyci 12/19/2019 GEL TOPIC complet apply by NEXTGEN 0.01 MG/MG n 1 % 12:00:00 AM AL ed topica l ([place] Topical Gel topical EST route 2 Me dical) clindamycin 1 gel times % topical gel every day a thin layer to the affected area(s) Metoprolol metoprolol 12/12/2019 TABLET 1 ORAL active take 1 NEXTGEN Tartrate 25 MG tartrate 12:00:00 AM {tablet} tablet ([place] Oral Tablet 25 mg EST by oral Medi sterling) metoprolol tablet route 2 tartrate 25 mg times tablet every day Losartan losartan 12/12/2019 TABLET 1.00 ORAL complet t kymberly 1 NEXTGEN Potassium 50 50 mg 12:00:00 AM {tablet} ed tablet ([place] MG Oral Tablet tablet EST by oral Medical) losartan 50 mg route tablet every day Fenofibrate fenofibrat 12/12/2019 TABLET 1.00 ORAL complet take 1 NEXTGEN 160 MG Oral e 160 mg 12:00:00 AM {tablet} ed tablet ([place] Tablet tablet EST by oral Medical) fenofibrate route 160 mg tablet every day Rosuvastatin Crestor 40 12/12/2019 TABLET ORAL complet Rosuvast NEXTGEN calcium 40 MG mg tablet 12:00:00 AM ed atin ([place] Oral Tablet EST calcium Medic al) [Crestor] 40 MG Crestor 40 mg Oral tablet Tablet [Crestor ] 24 HR Nicotine NICOTINE 12/06/2019 PATCH 1 patch TRANS complet APPLY NEXTGEN 0.875 MG/HR 21MG/24HR 12:00:00 AM DERMA ed ONE ([place] Transdermal PT24 EST L PATCH Medical ) Patch NICOTINE DAILY 21MG/24HR PT24 AND REMOVE AT BEDTIME Nicotine 2 MG Nicorette 10/17/2019 GUM 1.00 BUCCA complet Nicotine NEXTGEN Chewing Gum 2 mg gum 12:00:00 AM piece of L ed 2 MG ([place] [Nicorette] EST gum Chewing Medic al) Nicorette 2 mg Gum gum [Nicoret te] Metformin metformin 06/26/2019 TABLET 1.00 ORAL complet take 1 NEXTGEN hydrochloride 1,000 mg 12:00:00 AM tablet ed tablet ([place] 1000 MG Oral tablet EDT by oral Me dical) Tablet route 2 metformin times 1,000 mg every tablet day with morning and evening meals 24 HR Nicotine nicotine 06/26/2019 PATCH 1 patch TRANS complet apply 1 NEXTGEN 0.875 MG/HR 21 mg/24 12:00:00 AM DERMA ed p atch by ([place] Transdermal hr daily EDT L transder Medical) Patch nicotine transderma mal 21 mg/24 hr l patch route daily every transdermal day and patch remove at bedtime Nicotine 2 MG Nicorette 06/26/2019 GUM 1.00 [place]CCA complet Nicotine NEXTGEN Chewing Gum 2 mg gum 12:00:00 AM piece of L ed 2 MG ([place] [Nicorette] EDT gum Chewing Medic al) Nicorette 2 mg Gum gum [Nicoret te] Fenofibrate fenofibrat 05/30/2019 TABLET 1.00 ORAL active take 1 NEXTGEN 160 MG Oral e 160 mg 12:00:00 AM tablet tablet ([place] Tablet tablet EDT by oral Medical) fenofibrate route 160 mg tablet every day Losartan losartan 05/30/2019 TABLET 1.00 ORAL active ta ke 1 NEXTGEN Potassium 50 50 mg 12:00:00 AM tablet ta blet ([place] MG Oral Tablet tablet EDT by oral Medical) losartan 50 mg route tablet every day Rosuvastatin Crestor 40 05/30/2019 TABLET ORAL active Rosuvast NEXTGEN calcium 40 MG mg tablet 12:00:00 AM atin ([place] Oral Tablet EDT calcium Medic al) [Crestor] 40 MG Crestor 40 mg Oral tablet Tablet [Crestor ] Metoprolol metoprolol 05/30/2019 TABLET 1 tablet ORAL active take 1 NEXTGEN Tartrate 25 MG tartrate 12:00:00 AM tablet ([place] Oral Tablet 25 mg EDT by oral Medi sterling) metoprolol tablet route 2 tartrate 25 mg times tablet every day Nitroglycerin nitroglyce 02/27/2019 TABLET 1.[address] 1 NEXTGEN 0.6 MG rin 0.6 mg 12:00:00 AM {tablet} NGUAL ed tablet ([place] Sublingual sublingual EDT by Med ical) Tablet tablet sublingu nitroglycerin al route 0.6 mg at 1st sublingual sign of tablet attack; may repeat every 5 minutes up to 3 tabs; if norelief seek medical help FreeStyle Lite blood 12/14/2015 STRIP complet check NEXTGEN Strips sugar 12:00:00 AM ed fingerst ( [place] diagnostic EST ick Medical) blood glucose twice a day E11.9 FreeStyle lancets 09/19/2014 completed t est NEXTGEN Lancets 28 12:00:00 AM EST glu cose two ([place] gauge to three Medical) times daily 250.00 FreeStyle blood-glucose 06/04/2014 KIT completed Test 2-3 NEXTGEN Lite Meter meter 12:00:00 AM times ([place] kit EDT daily. Medical) 250.00 Insurance Providers Payer name Policy type Policy ID Covered Covered libertarian's Policy P urban / Coverage libertarian ID relationship to Bello Inf ormation type bello MEDICARE [id number] SP [id number] A PPO [id number] SP [id number] MEDICARE [id number] SP [id number] OR MEDICARE [id number] LOWELL [id number] [facility] [id number] HEALTHCARE OR MEDICARE Medicare [id number] MEDICARE [id number] SP [id number] A BC PPO [id number] SP [id number] MEDICARE [id number] SP [id number] BC PPO [id number] SP [id number] BC PPO [id number] SP [id number] MEDICARE [id number] SP [id number] SPECIAL FUNDS [id number] SP [id number] [facility] NCA COMP [id number] Patient is [id number] Insured MEDICARE [id number] SP [id number] BC PPO [id number] SP [id number] WORKERS COMP [id number] Patient is [id number] MISC Insured BC PPO [id number] SP [id number] BC PPO [id number] SP [id number] Problems, Conditions, and Diagnoses Code Display Name Description Problem Type Effective Data Dates Source(s) I25.9 Chronic ischemic Chronic ischemic Diagnosis 06/24/2020 NE XTGEN heart disease, heart disease, interpretation 12:00:00 AM ( [place] unspecified unspecified (observable EDT Medical) entity) I10 Essential Essential Diagnosis 06/24/2020 NEXTGEN (primary) (primary) interpretation 12:00:00 AM ([place] hypertension hypertension (observable EDT Medical) entity) R35.1 Nocturia Nocturia [id number] 06/16/2020 [facility] 12:00:00 AM [employer] 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 [id number] 06/16/2020 [facility] obstruction/lower obstruction/lower 12:00:00 AM [facility] urinary tract urinary tract [facility] ystem symptoms symptoms Inc Z72.0 Tobacco use Tobacco use Diagnosis 04/15/2020 NEXTGEN interpretation 12:00:00 AM ([place] (observable EDT Medical) entity) R06.00 Dyspnea, Dyspnea Diagnosis 04/15/2020 NEXTGEN unspecified interpretation 12:00:00 [facility]) I10 Essential Essential Diagnosis 04/15/2020 NEXTGEN (primary) (primary) interpretation 12:00:00 AM ([place] hypertension hypertension (observable EDT Medical) entity) I25.9 Chronic ischemic Chronic ischemic Diagnosis 04/15/2020 NE XTGEN heart disease, heart disease, interpretation 12:00:00 AM ( [place] unspecified unspecified (observable EDT Medical) entity) I25.9 Chronic ischemic Chronic ischemic Diagnosis 12/12/2019 NE XTGEN heart disease, heart disease, interpretation 12:00:00 AM ( [place] unspecified unspecified (observable EST Medical) entity) I10 Essential Essential Diagnosis 12/12/2019 NEXTGEN (primary) (primary) interpretation 12:00:00 AM ([place] hypertension hypertension (observable EST Medical) entity) R35.1 Nocturia Nocturia Diagnosis 06/16/2020 [facility] 10:48:52 AM [facility] Surgeries/Procedures Procedure Description Date Indications Data Source(s) ELECTROCARDIOGRAM, 06/24/2020 NEXTGEN ( [place] COMPLETE 12:00:00 AM EDT - Medical) 06/24/2020 12:00:00 AM EDT OFFICE/OUTPATIENT 06/24/2020 NEXTGEN ([facility] VISIT, EST 12:00:00 AM EDT - Medical) 06/24/2020 12:00:00 AM EDT URINLS DIP AMB POC Routine 06/16/2020 BPH with 06/16/2020 BPH wi th Bon STICK/TABLET URINALYSIS 11:19 AM obstruction/lower 11:19 :00 AM obstruction/lower [facility] REAGNT DIP STICK EDT urinary tract EDT urinary tract [facility] NON-AUTO MANUAL W/ symptoms symptoms [facility] [employer] BPH with obstruction/lower urinary tract symptoms KIRSTIN,POST-VOID KIRSTIN,POST-VOID Routine 06/16/2020 BPH with 2019 BPH with Bon RES,US,NON-IMAGING RES,US,NON-IMAGING 11:13 AM obstruction/lower 11:13:00 AM obstruction/lower [facility] EDT urinary tract EDT urinary tr act [facility] symptoms symptoms [facility] BPH with obstruction/lower urinary tract symptoms OFFICE/OUTPATIENT VISIT, EST 04/15/2020 12:00:00 AM ED T NEXTGEN ([place] - 04/15/2020 12:00:00 AM Med ical) EDT OFFICE/OUTPATIENT VISIT, EST 01/24/2020 12:00:00 AM ED T NEXTGEN ([place] - 01/24/2020 12:00:00 AM Med ical) EDT OFFICE/OUTPATIENT VISIT, EST 12/19/2019 12:00:00 AM ES T NEXTGEN ([place] - 12/19/2019 12:00:00 AM Med ical) EST ELECTROCARDIOGRAM, COMPLETE 12/12/2019 12:00:00 AM EST NEXTGEN ([place] - 12/12/2019 12:00:00 AM Med ical) EST OFFICE/OUTPATIENT VISIT, EST 12/12/2019 12:00:00 AM ES T NEXTGEN ([place] - 12/12/2019 12:00:00 AM Med ical) EST Results ID Date Data Source [id number] 04/20/2020 12:00:00 AM EDT [facility] Name Value Range Interpretation Code Description Data Trice rce(s) Supporting Document(s ) 2019-nCoV [facility] RNA XXX CHUCK+probe- Imp This lab was ordered by RENETTA ROBIN and reported by [facility]. Procedure Social History Code Duration Value Status Description Data Source(s ) ASSERTION 06/24/2020 coffee, 2 cups completed coffee, 2 cups NEXTGE N 12:00:00 AM ([facility] Medical) 06/24/2020 Occasional completed Occasional NEXTGEN 12:00:00 AM cigarette cigarette smoker ([facility] smoker Medical) Alcohol intake 06/16/2020 Current completed Current Foreman s 12:00:00 AM non-drinker of non-drinker of [facility] alcohol alcohol [facility] [employer] (finding) (finding) Tobacco use and 06/16/2020 Never used completed Never used [facility] exposure 12:00:00 AM [employer] Cigarette 06/16/2020 UNK completed [facility] pack-years 12:00:00 AM [employer] Cigarettes 06/16/2020 UNK completed [facility] smoked current 12:00:00 AM [facility] [employer] (pack per day) - EDT System I nc Reported Smoking 06/16/2020 Current every completed Current every [facility] 12:00:00 AM day smoker day smoker [facility] [employer] ASSERTION 01/27/2020 completed coffee, 2 cups NEXTGEN 12:00:00 AM ([facility]) Vital Signs ID Date Data Source UNK Name Value Range Interpretation Code Description Data Source(s) Body mass index 39.71 Overweight 39.71 kg/meter(2) [place] XTGEN (BMI) [Ratio] kg/meter(2) ([facility]) Body temperature 97.0 [degF] 97.0 [degF] NEXTGE N ([facility]) Heart rate 96 /min 96 /min NEXTGEN ([facility]) Diastolic blood 66 mm[Hg] 66 mm[Hg] NEXTGEN pressure ([facility]) Systolic blood 122 mm[Hg] 122 mm[Hg] NEXTGEN pressure ([facility]) Body weight 301.00 301.00 [lb_av] NEXTGEN Measured [lb_av] ([facility]) Body height 73.00 73.00 [in_us] NEXTGEN [in_us] ([facility]) Oxygen saturation 96 % 96 % [facility] in Arterial blood [email or web address] by [employer] Body mass index 38.26 kg/m2 38.26 kg/m2 [facility] (BMI) [Ratio] [facility] Body weight 131.543 kg 131.543 kg [facility] [employer] Body height 185.4 cm 185.4 cm [facility] [email or web address] Body temperature 36.44 Susana 36.44 Susana [facility] [email or web address] Heart rate 74 /min 74 /min [facility] [employer] Diastolic blood 80 mm[Hg] 80 mm[Hg] [facility] pressure [employer] Systolic blood 126 mm[Hg] 126 mm[Hg] Foreman s pressure [employer] [facility] Body mass index 39.71 Overweight 39.71 kg/meter(2) NE XTGEN (BMI) [Ratio] kg/meter(2) ([facility]) Heart rate 75 /min 75 /min NEXTGEN ([facility]) Diastolic blood 74 mm[Hg] 74 mm[Hg] NEXTGEN pressure ([facility]) Systolic blood 128 mm[Hg] 128 mm[Hg] NEXTGEN pressure ([facility]) Body weight 301.00 301.00 [lb_av] NEXTGEN Measured [lb_av] ([facility]) Body height 73.00 73.00 [in_us] NEXTGEN [in_us] ([facility]) Heart rate 108 /min 108 /min NEXTGEN ([facility]) Heart rate 108 /min 108 /min NEXTGEN ([facility]) Body temperature 98.4 [degF] 98.4 [degF] NEXTGE N ([facility]) Diastolic blood 80 mm[Hg] 80 mm[Hg] NEXTGEN pressure ([facility]) Systolic blood 120 mm[Hg] 120 mm[Hg] NEXTGEN pressure ([facility]) Body height 73.00 73.00 [in_us] NEXTGEN [in_us] ([facility]) Body mass index 39.32 Overweight 39.32 kg/meter(2) NE XTGEN (BMI) [Ratio] kg/meter(2) ([facility]) Body temperature 97.5 [degF] 97.5 [degF] NEXTGE N ([facility]) Heart rate 64 /min 64 /min NEXTGEN ([facility]) Diastolic blood 70 mm[Hg] 70 mm[Hg] NEXTGEN pressure ([facility]) Systolic blood 130 mm[Hg] 130 mm[Hg] NEXTGEN pressure ([facility]) Body weight 298.00 298.00 [lb_av] NEXTGEN Measured [lb_av] ([facility]) Body height 73.00 73.00 [in_us] NEXTGEN [in_us] ([facility]) Body mass index 36.94 Overweight 36.94 kg/meter(2) NE XTGEN (BMI) [Ratio] kg/meter(2) ([facility]) Heart rate 66 /min 66 /min NEXTGEN ([facility]) Diastolic blood 78 mm[Hg] 78 mm[Hg] NEXTGEN pressure ([facility]) Systolic blood 140 mm[Hg] 140 mm[Hg] NEXTGEN pressure ([facility]) Body weight 280.00 280.00 [lb_av] NEXTGEN Measured [lb_av] ([facility]) Body height 73.00 73.00 [in_us] NEXTGEN [in_us] ([facility]) Patient Treatment Plan of Care Planned Activity Planned Date Details Description Data Source (s) Oxybutynin chloride 5 MG 06/16/2020 12:00:00 Jh Chatman Oral Tablet AM EDT Health System I nc Oxybutynin chloride 5 MG 05/28/2020 12:00:00 [facility] Oral Tablet AM [facility] System I nc Metformin hydrochloride 05/22/2020 12:00:00 NEXTGEN ([place] 1000 MG Oral Tablet EDT Medical) Nitroglycerin 0.6 MG 04/15/2020 12:00:00 NEXTGEN ([place] Sublingual Tablet EDT Medical) Losartan Potassium 50 MG 04/15/2020 12:00:00 NEXTGEN ([place] Oral Tablet EDT Medical) Rosuvastatin calcium 40 04/15/2020 12:00:00 NEXTGEN ([place] MG Oral Tablet [Crestor] AM EDT Med ical) dapagliflozin 5 MG Oral 04/15/2020 12:00:00 NEXTGEN ([place] Tablet [Farxiga] EDT Medical) Nitroglycerin 0.6 MG 04/15/2020 12:00:00 J[facility] Lur[facility] Sublingual Tablet [facility] Inc 24 HR Nicotine 0.875 02/25/2020 12:00:00 NEXTGEN ([place] MG/HR Transdermal Patch [facility]) Ondansetron 4 MG Oral 01/24/2020 12:00:00 NEXTGEN ([place] Tablet [Zofran] EDT Medical) Azithromycin 500 MG Oral 01/24/2020 12:00:00 NEXTGEN ([place] Tablet EDT Medical) Nicotine 2 MG Chewing Gum 12/19/2019 12:00:00 NEXTGEN ([place] [Nicorette] EST Medical) Metformin hydrochloride 12/19/2019 12:00:00 NEXTGEN ([place] 1000 MG Oral Tablet EST Medical) Clindamycin 0.01 MG/MG 12/19/2019 12:00:00 NEXTGEN ([place] Topical Gel EST Medical) Metoprolol Tartrate 25 MG 12/12/2019 12:00:00 NEXTGEN ([place] Oral Tablet EST Medical) Rosuvastatin calcium 40 12/12/2019 12:00:00 NEXTGEN ([place] MG Oral Tablet [Crestor] AM EST Med ical) Fenofibrate 160 MG Oral 12/12/2019 12:00:00 NEXTGEN ([place] Tablet EST Medical) Losartan Potassium 50 MG 12/12/2019 12:00:00 NEXTGEN ([place] Oral Tablet AM EST Medical) 24 HR Nicotine 0.875 12/06/2019 12:00:00 NEXTGEN ([place] MG/HR Transdermal Patch AM EST Medi sterling) Nicotine 2 MG Chewing Gum 10/17/2019 12:00:00 NEXTGEN ([place] [[place]] AM EST Medical) Nicotine 2 MG Chewing Gum 06/26/2019 12:00:00 NEXTGEN ([place] [[facility]] EDT Medical) 24 HR Nicotine 0.875 06/26/2019 12:00:00 NEXTGEN ([place] MG/HR Transdermal Patch AM EDT Medi [facility]) Metformin hydrochloride 06/26/2019 12:00:00 NEXTGEN ([place] 1000 MG Oral Tablet EDT Medical) Losartan Potassium 50 MG 05/30/2019 12:00:00 NEXTGEN ([place] Oral Tablet EDT Medical) Metoprolol Tartrate 25 MG 05/30/2019 12:00:00 NEXTGEN ([place] Oral Tablet EDT Medical) Rosuvastatin calcium 40 05/30/2019 12:00:00 NEXTGEN ([place] MG Oral Tablet [Crestor] EDT Med ical) Fenofibrate 160 MG Oral 05/30/2019 12:00:00 NEXTGEN ([place] Tablet EDT Medical) Nitroglycerin 0.6 MG 02/27/2019 12:00:00 NEXTGEN ([place] Sublingual Tablet ED Medical) FreeStyle Lite Strips 12/14/2015 12:00:00 NEXTGEN ([facility] EST Medical) FreeStyle Lancets 28 09/19/2014 12:00:00 NEXTGEN ([place] gauge EST Medical) FreeStyle Lite Meter kit 06/04/2014 12:00:00 NEXTGEN ([facility] EDT Medical)
--- NOTE | 2020-08-27 19:38 | PDOC ---
History of Present Illness - General Chief Complaint: Pain, Acute Stated Complaint: MIGRAINE/ARM PAIN Time Seen by Provider: 08/27/20 19:37 History Source: Patient - History of Present Illness Initial Comments: 08/27/20 21:06 Pt presents to the ED complaining of L lateral neck pain radiating to his left arm and head. This pain is similar to multiple episodes of neck pain and headache that patient has had in the past. Patient is requesting dilaudid and benadryl, which have resolved his pain in the past. Denies arm or hand weakness or numbness, fever, nausea or vomiting or any other new symptoms. Past History - Medical History Allergies/Adverse Reactions: Allergies Allergy/AdvReac Type Severity Reaction Status Date / Time prochlorperazine maleate AdvReac Intermediate Rash Verified 04/30/20 20:02 [From Compazine] sumatriptan [From Imitrex] AdvReac Mild Rash Verified 04/30/20 20:02 sumatriptan succinate AdvReac Mild Rash Verified 04/30/20 20:02 [From Imitrex] Home Medications: Ambulatory Orders Aspirin [Aspirin EC] 325 mg PO DAILY 04/30/20 Cholecalciferol (Vitamin D3) [Vitamin D3] 1,000 unit PO DAILY 04/30/20 Cyanocobalamin (Vitamin B-12) [Vitamin B12] 1,000 mg PO DAILY 04/30/20 Fenofibrate 160 mg PO DAILY 04/30/20 Gabapentin 400 mg PO ASDIR 04/30/20 Hyoscyamine Sulfate [Levsin-Sl] 0.125 mg SL TID 04/30/20 Losartan Potassium 50 mg PO DAILY 04/30/20 Metformin HCl [Glucophage] 1,000 mg PO BID 04/30/20 Metoprolol Succinate [Toprol Xl] 25 mg PO BID 04/30/20 Oxybutynin Chloride 5 mg PO DAILY 04/30/20 Pantoprazole Sodium 40 mg PO BID 04/30/20 Percocet 5-325 mg Tablet 1 tab PO QID 04/30/20 Rosuvastatin Calcium [Crestor] 40 mg PO HS 04/30/20 Sucralfate Oral Suspension [Carafate *Oral Susp*] 2 tsp PO QID PRN 04/30/20 Cardiac Disorders: Yes ([place]) COPD: No Diabetes: Yes GI Disorders: Yes ([facility]FLUX) Hypercholesterolemia: Yes - Surgical History Abdominal Surgery: Yes Cardiac Surgery: Yes (STENTS X4) Cholecystectomy: Yes GI Surgery: Yes (ABD SURGURY) - Immunization History Td Vaccination: Yes TDAP Vaccination: Yes Immunization Up to Date: No - Psycho-Social/Smoking History Smoking Status: Yes Smoking History: Current every day smoker Years of Tobacco Use: 30 Have you smoked in the past 12 months: No Number of Cigarettes Smoked Daily: 6 Cigars Per Day: 0 Information on smoking cessation initiated: Yes 'Breaking Loose' booklet given: 03/07/19 Review of Systems - Review of Systems Able to Perform ROS?: Yes Is the patient limited Mongolian proficient: No Constitutional: No: Symptoms Reported, See HPI, Chills, Diaphoresis, Fever, Loss of Appetite, Malaise, Night Sweats, Weakness, Weight Stable, Unintentional Wgt. Loss, Unexplained wgt Loss, Other HEENTM: No: Symptoms Reported, See HPI, Eye Pain, Blurred Vision, Tearing, Recent change in vision, Double Vision, Cataracts, Ear Pain, Ocular Prothesis, Ear Discharge, Nose Pain, Nose Congestion, Tinnitus, Nose Bleeding, Hearing Loss, Throat Pain, Throat Swelling, Mouth Pain, Dental Problems, Difficulty Swallowing, Mouth Swelling, Other Respiratory: No: Symptoms reported, See HPI, Cough, Orthopnea, Shortness of Breath, SOB with Exertion, SOB at Rest, Stridor, Wheezing, Productive cough, Hemoptysis, Other Cardiac (ROS): No: Symptoms Reported, See HPI, Chest Pain, Edema, Irregular Heart Rate, Lightheadedness, Palpitations, Syncope, Chest Tightness, Other ABD/GI: No: Symptoms Reported, See HPI, Abdominal Distended, Abd. Pain w/ defecation, Blood Streaked Bowels, Constipated, Diarrhea, Difficulty Swallowing, Nausea, Poor Appetite, Poor Fluid Intake, Rectal Bleeding, Vomiting, Indigestion, Abdominal cramping, Tarry Stools, Other : No: Symptoms Reported, See HPI, Burning, Dysuria, Discharge, Frequency, Flank Pain, Hematuria, Incontinence, Pain, Urgency, Testicular Mass, Testicular Swelling, Lesions, Testicular Pain, Other Musculoskeletal: Yes: Neck Pain. No: Symptoms Reported, See HPI, Back Pain, Gout, Joint Pain, Joint Swelling, Muscle Pain, Muscle Weakness, Joint Stiffness, Other Neurological: Yes: Headache. No: Symptoms reported, See HPI, Numbness, Paresthesia, Pre-Existing Deficit, Seizure, Tingling, Tremors, Weakness, Unsteady Gait, Ataxia, Dizziness, Other Psychiatric: No: Anxiety, Depression, Frequent Crying, Stressors, Sleep Pattern Change, Emotional Problems, Mood Swings, Change in Appetite, Other Endocrine: No: Symptoms Reported, See HPI, Excessive Sweating, Flushing, Intolerance to Cold, Intolerance to Heat, Increased Hunger, Increased Thirst, Increased Urine, Unexplained Weight Gain, Unexplained Weight Loss, Change in Weight, Other Hematologic/Lymphatic: No: Symptoms Reported, See HPI, Anemia, Blood Clots, Easy Bleeding, Easy Bruising, Bleeding Diathesis, Lymph Node Abnormalities, Swollen Glands, Other All Other Systems: Reviewed and Negative *Physical Exam - Vital Signs Last Vital Signs Temp Pulse Resp BP Pulse Ox 98.7 F 84 18 145/68 98 08/27/20 19:29 08/27/20 19:29 08/27/20 19:29 08/27/20 19:29 08/27/20 19:29 - Physical Exam 08/27/20 21:10 gen: alert, NAD HEENT: normocephalic, atraumatic CV: rr no m/r/g Pulm: CTA b/l Neuro: alert and oriented x 3, CN 2-12 grossly intact, 5/5 strength bilateral columnist, intact hand, wrist and forearm light touch sensation. Medical Decision Making - Medical Decision Making 08/27/20 21:11 Pt presents to the ED complaining of acute exacerbation of his chronic neck pain and migraines. Denies new or concerning symptoms. Requesting combination of dilaudid and benadryl, which has treated his symptoms in the past. Feels improved after dilaudid and benadryl in the Ed. Will discharge home with instructions to follow up with his pain management doctor. Discharge - Discharge Information Problems reviewed: Yes Clinical Impression/Diagnosis: Migraine Condition: Good Disposition: HOME - Admission No - Follow up/Referral - Patient Discharge Instructions Patient Printed Discharge Instructions: DI for Migraine Additional Instructions: You came to the ED for pain in your neck and headache that is similar to your chronic migraine. we treated your pain with dilaudid and benadryl. You should return to the ED for worsening pain or pain that is different than your usual migraine, pain with fever, weakness or numbness in your arms or hands. Call your pain management doctor tomorrow to arrange follow up. - Post Discharge Activity
[2020-08-27 19:40] VITALS: BP 145/68; PULSE 84; TEMP 98.7; BMI 38.7
[2020-08-27] MEDS ORDERED: HYDROmorphone HCL CARPU-JECT 2 MG/1 ML DISP.SYRIN IVPUSH ONE ×2 (20:01→20:59)
[2020-08-27] MEDS ORDERED: HYDROmorphone HCl 2 MG/ML VIAL ONE (20:05)
[2020-08-27] MEDS ORDERED: HYDROmorphone HCL/PF 1 MG/ML VIAL ONE (21:14)
== END 2020-08-27 21:27 | disposition home or self-care (01) ==
LOC: FER 19:28
PROC: 3E033NZ Introduction of Analgesics, Hypnotics, Sedatives into Peripheral Vein, Percutaneous Approach (ICD-10-PCS; principal; 2020-08-27)
PROC: 3E033GC Introduction of Other Therapeutic Substance into Peripheral Vein, Percutaneous Approach (ICD-10-PCS; 2020-08-27)
DX: G43.909 Migraine, unspecified, not intractable, without status migrainosus (principal)
CPT/HCPCS: 99284-25

== ENCOUNTER 2020-10-15 22:55 | Emergency (ER) | payer OTHER, BC ==
[2020-10-15 23:11] VITALS: BMI 38.7
[2020-10-15] MEDS ORDERED: HYDROmorphone HCL CARPU-JECT 1 MG/1 ML DISP.SYRIN IVPUSH ONE ×2 (23:15→23:53)
[2020-10-15] MEDS ORDERED: HYDROmorphone HCl 2 MG/ML VIAL ONE ×2 (23:19→23:55)
[2020-10-15 23:41] VITALS: BP 158/80; PULSE 73; TEMP 98.8
[2020-10-15] MEDS ORDERED: HYDROmorphone HCL/PF 1 MG/ML VIAL ONE (23:55)
== END 2020-10-16 00:37 | disposition home or self-care (01) ==
LOC: FER 22:55
PROC: 3E033GC Introduction of Other Therapeutic Substance into Peripheral Vein, Percutaneous Approach (ICD-10-PCS; principal; 2020-10-15)
PROC: 3E033NZ Introduction of Analgesics, Hypnotics, Sedatives into Peripheral Vein, Percutaneous Approach (ICD-10-PCS; 2020-10-15)
PROC: 3E033NZ Introduction of Analgesics, Hypnotics, Sedatives into Peripheral Vein, Percutaneous Approach (ICD-10-PCS; 2020-10-15)
DX: G43.909 Migraine, unspecified, not intractable, without status migrainosus (principal)
CPT/HCPCS: 99284-25

== ENCOUNTER 2020-12-11 01:08 | Emergency (ER) | payer OTHER, BC ==
[2020-12-11] MEDS ORDERED: HYDROmorphone HCL CARPU-JECT 1 MG/1 ML DISP.SYRIN IVPUSH ONE ×2 (01:13→02:12)
[2020-12-11 01:14] VITALS: BP 137/73; PULSE 78; TEMP 98; BMI 38.7
[2020-12-11] MEDS ORDERED: HYDROmorphone HCl 2 MG/ML VIAL ONE ×2 (01:22→02:14)
[2020-12-11] MEDS ORDERED: HYDROmorphone HCL/PF 1 MG/ML VIAL ONE (02:14)
== END 2020-12-11 02:48 | disposition home or self-care (01) ==
LOC: FER 01:08
PROC: 3E033GC Introduction of Other Therapeutic Substance into Peripheral Vein, Percutaneous Approach (ICD-10-PCS; principal; 2020-12-11)
PROC: 3E033NZ Introduction of Analgesics, Hypnotics, Sedatives into Peripheral Vein, Percutaneous Approach (ICD-10-PCS; 2020-12-11)
PROC: 3E033NZ Introduction of Analgesics, Hypnotics, Sedatives into Peripheral Vein, Percutaneous Approach (ICD-10-PCS; 2020-12-11)
DX: G43.909 Migraine, unspecified, not intractable, without status migrainosus (principal); M54.2 Cervicalgia
CPT/HCPCS: 99284-25

== ENCOUNTER 2021-01-29 01:55 | Emergency (ER) | payer OTHER, BC ==
[2021-01-29] MEDS ORDERED: HYDROmorphone HCL CARPU-JECT 1 MG/1 ML DISP.SYRIN IVPUSH ONE ×2 (02:04→02:05)
[2021-01-29] MEDS ORDERED: HYDROmorphone HCl 2 MG/ML VIAL ONE ×2 (02:15→02:31)
[2021-01-29 02:21] VITALS: BP 132/74; PULSE 80; TEMP 97.8; BMI 38.7
[2021-01-29] MEDS ORDERED: HYDROmorphone HCL/PF 1 MG/ML VIAL ONE (02:31)
== END 2021-01-29 03:09 | disposition home or self-care (01) ==
LOC: FER 01:55
PROC: 3E033GC Introduction of Other Therapeutic Substance into Peripheral Vein, Percutaneous Approach (ICD-10-PCS; principal; 2021-01-29)
PROC: 3E033NZ Introduction of Analgesics, Hypnotics, Sedatives into Peripheral Vein, Percutaneous Approach (ICD-10-PCS; 2021-01-29)
PROC: 3E033NZ Introduction of Analgesics, Hypnotics, Sedatives into Peripheral Vein, Percutaneous Approach (ICD-10-PCS; 2021-01-29)
DX: G43.909 Migraine, unspecified, not intractable, without status migrainosus (principal)
CPT/HCPCS: 99284-25

== ENCOUNTER 2021-03-14 21:15 | Emergency (ER) | payer OTHER, BC ==
[2021-03-14 21:27] VITALS: TEMP 98.3; BMI 37.5
[2021-03-14] MEDS ORDERED: HYDROmorphone HCL CARPU-JECT 2 MG/1 ML DISP.SYRIN IM ONE ×2 (22:08→23:13)
[2021-03-14] MEDS ORDERED: HYDROmorphone HCl 2 MG/ML VIAL ONE ×2 (22:10→23:14)
[2021-03-14 23:22] VITALS: BP 118/64; PULSE 90
== END 2021-03-14 23:33 | disposition home or self-care (01) ==
LOC: FER 21:15
PROC: 3E023GC Introduction of Other Therapeutic Substance into Muscle, Percutaneous Approach (ICD-10-PCS; principal; 2021-03-14)
PROC: 3E023NZ Introduction of Analgesics, Hypnotics, Sedatives into Muscle, Percutaneous Approach (ICD-10-PCS; 2021-03-14)
PROC: 3E023NZ Introduction of Analgesics, Hypnotics, Sedatives into Muscle, Percutaneous Approach (ICD-10-PCS; 2021-03-14)
DX: G43.909 Migraine, unspecified, not intractable, without status migrainosus (principal)
CPT/HCPCS: 99284-25

== ENCOUNTER 2021-08-19 20:00 | Emergency (ER) | payer OTHER, BC ==
[2021-08-19] MEDS ORDERED: HYDROmorphone HCL CARPU-JECT 1 MG/1 ML DISP.SYRIN IVPUSH ONE ×2 (20:04→21:19)
[2021-08-19] MEDS ORDERED: HYDROmorphone HCl 2 MG/ML VIAL ONE ×2 (20:11→21:22)
[2021-08-19 20:28] VITALS: BP 163/80; PULSE 87; TEMP 98.4; BMI 27.7
== END 2021-08-19 21:40 | disposition home or self-care (01) ==
LOC: FER 20:00
PROC: 3E033GC Introduction of Other Therapeutic Substance into Peripheral Vein, Percutaneous Approach (ICD-10-PCS; principal; 2021-08-19)
DX: G43.909 Migraine, unspecified, not intractable, without status migrainosus (principal); M79.602 Pain in left arm
CPT/HCPCS: 99284-25

== ENCOUNTER 2021-10-29 01:46 | Emergency (ER) | payer OTHER, BC ==
[2021-10-29 01:57] VITALS: BP 140/76; PULSE 78; TEMP 98.4; BMI 27.7
== END 2021-10-29 04:01 | disposition home or self-care (01) ==
LOC: FER 01:46
PROC: 3E033GC Introduction of Other Therapeutic Substance into Peripheral Vein, Percutaneous Approach (ICD-10-PCS; principal; 2021-10-29)
PROC: 3E033NZ Introduction of Analgesics, Hypnotics, Sedatives into Peripheral Vein, Percutaneous Approach (ICD-10-PCS; 2021-10-29)
PROC: 3E033NZ Introduction of Analgesics, Hypnotics, Sedatives into Peripheral Vein, Percutaneous Approach (ICD-10-PCS; 2021-10-29)
DX: G43.909 Migraine, unspecified, not intractable, without status migrainosus (principal)
CPT/HCPCS: 99284-25

== ENCOUNTER 2022-01-09 22:25 | Emergency (ER) | payer OTHER, BC ==
[2022-01-09] MEDS ORDERED: HYDROmorphone HCL CARPU-JECT 1 MG/1 ML DISP.SYRIN IVPB ONE (22:29)
[2022-01-09 22:31] VITALS: BP 172/66; PULSE 84; TEMP 98.7; BMI 38.2
[2022-01-09] MEDS ORDERED: HYDROmorphone HCl 2 MG/ML VIAL ONE ×2 (22:37→23:21)
[2022-01-09] MEDS ORDERED: HYDROmorphone HCL CARPU-JECT 1 MG/1 ML DISP.SYRIN IM ONE ×4 (22:38→23:21)
[2022-01-09] MEDS ORDERED: HYDROmorphone HCL CARPU-JECT 1 MG/1 ML DISP.SYRIN IVPUSH ONE (22:47)
== END 2022-01-10 00:12 | disposition home or self-care (01) ==
LOC: FER 22:25
PROC: 3E023GC Introduction of Other Therapeutic Substance into Muscle, Percutaneous Approach (ICD-10-PCS; principal; 2022-01-09)
PROC: 3E023NZ Introduction of Analgesics, Hypnotics, Sedatives into Muscle, Percutaneous Approach (ICD-10-PCS; 2022-01-09)
PROC: 3E023NZ Introduction of Analgesics, Hypnotics, Sedatives into Muscle, Percutaneous Approach (ICD-10-PCS; 2022-01-09)
PROC: 3E023NZ Introduction of Analgesics, Hypnotics, Sedatives into Muscle, Percutaneous Approach (ICD-10-PCS; 2022-01-09)
DX: G43.909 Migraine, unspecified, not intractable, without status migrainosus (principal)
CPT/HCPCS: 96372; 99284-25

== ENCOUNTER 2022-02-24 20:54 | Emergency (ER) | payer OTHER, BC ==
[2022-02-24] MEDS ORDERED: HYDROmorphone HCL CARPU-JECT 1 MG/1 ML DISP.SYRIN IVPUSH ONE ×2 (21:18→22:32)
[2022-02-24] MEDS ORDERED: HYDROmorphone HCl 2 MG/ML VIAL ONE ×2 (21:20→22:35)
[2022-02-24 21:21] VITALS: BP 115/60; PULSE 85; TEMP 98.7; BMI 38.0
[2022-02-24] MEDS ORDERED: ONDANSETRON 4 MG/2 ML VIAL ONE (21:38)
[2022-02-24] MEDS ORDERED: ONDANSETRON 4 MG/2 ML VIAL IVPB ONE (21:39)
[2022-02-24] MEDS ORDERED: SODIUM CHLORIDE 1,000 ML IV ONE (21:40)
[2022-02-24] MEDS ORDERED: HYDROmorphone HCL/PF 1 MG/ML VIAL ONE (22:35)
== END 2022-02-24 23:03 | disposition home or self-care (01) ==
LOC: FER 20:54
PROC: 3E033GC Introduction of Other Therapeutic Substance into Peripheral Vein, Percutaneous Approach (ICD-10-PCS; principal; 2022-02-24)
PROC: 3E033NZ Introduction of Analgesics, Hypnotics, Sedatives into Peripheral Vein, Percutaneous Approach (ICD-10-PCS; 2022-02-24)
PROC: 3E033NZ Introduction of Analgesics, Hypnotics, Sedatives into Peripheral Vein, Percutaneous Approach (ICD-10-PCS; 2022-02-24)
PROC: 3E033GC Introduction of Other Therapeutic Substance into Peripheral Vein, Percutaneous Approach (ICD-10-PCS; 2022-02-24)
PROC: 3E0337Z Introduction of Electrolytic and Water Balance Substance into Peripheral Vein, Percutaneous Approach (ICD-10-PCS; 2022-02-24)
DX: G43.909 Migraine, unspecified, not intractable, without status migrainosus (principal)
CPT/HCPCS: 99284-25

== ENCOUNTER 2022-03-27 20:54 | Emergency (ER) | payer OTHER, BC ==
[2022-03-27 21:01] VITALS: BP 156/90; PULSE 84; TEMP 98.3; BMI 38.2
[2022-03-27] MEDS ORDERED: HYDROmorphone HCL CARPU-JECT 1 MG/1 ML DISP.SYRIN IVPUSH ONE (21:09)
[2022-03-27] MEDS ORDERED: HYDROmorphone HCl 2 MG/ML VIAL ONE ×2 (21:18→22:35)
[2022-03-27] MEDS ORDERED: HYDROmorphone HCL CARPU-JECT 1 MG/1 ML DISP.SYRIN IM ONE (22:28)
[2022-03-27] MEDS ORDERED: HYDROmorphone HCL/PF 1 MG/ML VIAL ONE (22:35)
== END 2022-03-27 22:57 | disposition home or self-care (01) ==
LOC: FER 20:54
PROC: 3E023NZ Introduction of Analgesics, Hypnotics, Sedatives into Muscle, Percutaneous Approach (ICD-10-PCS; principal; 2022-03-27)
PROC: 3E033NZ Introduction of Analgesics, Hypnotics, Sedatives into Peripheral Vein, Percutaneous Approach (ICD-10-PCS; 2022-03-27)
DX: G43.909 Migraine, unspecified, not intractable, without status migrainosus (principal)
CPT/HCPCS: 99283-25

== ENCOUNTER 2022-05-17 20:27 | Emergency (ER) | payer OTHER, BC ==
[2022-05-17 20:36] VITALS: TEMP 98.5; BMI 38.2
[2022-05-17 21:24] LABS: EPITHELIAL CELLS RARE /hpf; URINE MUCUS 1+
[2022-05-17] MEDS ORDERED: PHENAZOPYRIDINE HCL 100 MG TABLET (FP) PO ONE (21:48)
[2022-05-17] MEDS ORDERED: SULFAMETHOXAZOLE/TRIMETHOPRIM 800MG/160MG D.S. TABLET PO ONE (21:49)
[2022-05-17] MEDS ORDERED: HYDROmorphone HCL CARPU-JECT 1 MG/1 ML DISP.SYRIN IVPUSH ONE (21:49)
[2022-05-17] MEDS ORDERED: HYDROmorphone HCL CARPU-JECT 1 MG/1 ML DISP.SYRIN IM ONE (22:01)
[2022-05-17] MEDS ORDERED: PHENAZOPYRIDINE HCL 100 MG TABLET (FP) ONE (22:04)
[2022-05-17] MEDS ORDERED: SULFAMETHOXAZOLE/TRIMETHOPRIM 800MG/160MG D.S. TABLET ONE (22:05)
[2022-05-17] MEDS ORDERED: HYDROmorphone HCl 2 MG/ML VIAL ONE (22:05)
[2022-05-17 22:51] VITALS: BP 116/70; PULSE 88
== END 2022-05-17 22:54 | disposition home or self-care (01) ==
LOC: FER 20:27
PROC: 3E023GC Introduction of Other Therapeutic Substance into Muscle, Percutaneous Approach (ICD-10-PCS; principal; 2022-05-17)
PROC: 3E023NZ Introduction of Analgesics, Hypnotics, Sedatives into Muscle, Percutaneous Approach (ICD-10-PCS; 2022-05-17)
DX: N41.0 Acute prostatitis (principal); G43.909 Migraine, unspecified, not intractable, without status migrainosus
CPT/HCPCS: 74176-TC; 81003; 81015; 99284-25

== ENCOUNTER 2022-07-28 21:12 | Emergency (ER) | payer OTHER, BC ==
[2022-07-28 21:21] VITALS: BP 148/80; PULSE 78; RESP 18; TEMP 98.1; BMI 38.2
[2022-07-28] MEDS ORDERED: HYDROmorphone HCL CARPU-JECT 2 MG/1 ML DISP.SYRIN IVPUSH ONE ×2 (21:36→22:52)
[2022-07-28] MEDS ORDERED: HYDROmorphone HCl 2 MG/ML VIAL ONE ×2 (21:39→22:55)
[2022-07-28] MEDS ORDERED: HYDROmorphone HCL/PF 1 MG/ML VIAL ONE (22:55)
== END 2022-07-28 23:40 | disposition home or self-care (01) ==
LOC: FER 21:12
PROC: 3E033GC Introduction of Other Therapeutic Substance into Peripheral Vein, Percutaneous Approach (ICD-10-PCS; principal; 2022-07-28)
PROC: 3E023GC Introduction of Other Therapeutic Substance into Muscle, Percutaneous Approach (ICD-10-PCS; principal; 2022-07-28)
DX: G43.909 Migraine, unspecified, not intractable, without status migrainosus (principal)
CPT/HCPCS: 99284-25

== ENCOUNTER 2022-09-29 21:34 | Emergency (ER) | payer OTHER, BC ==
[2022-09-29 21:54] VITALS: BP 135/67; PULSE 73; RESP 16; TEMP 98.5
[2022-09-29] MEDS ORDERED: HYDROmorphone HCL CARPU-JECT 2 MG/1 ML DISP.SYRIN IVPUSH ONE ×2 (22:23→23:43)
[2022-09-29] MEDS ORDERED: HYDROmorphone HCl 2 MG/ML VIAL ONE ×2 (22:28→23:45)
[2022-09-29] MEDS ORDERED: HYDROmorphone HCL/PF 1 MG/ML VIAL ONE (23:45)
[2022-09-30] VITALS: BMI 39.2
== END 2022-09-30 00:23 | disposition home or self-care (01) ==
LOC: FER 21:34
PROC: 3E033GC Introduction of Other Therapeutic Substance into Peripheral Vein, Percutaneous Approach (ICD-10-PCS; principal; 2022-09-29)
DX: G43.809 Other migraine, not intractable, without status migrainosus (principal)
CPT/HCPCS: 99284-25

== ENCOUNTER 2022-12-04 21:41 | Emergency (ER) | payer OTHER, BC ==
[2022-12-04] MEDS ORDERED: KETOROLAC TROMETHAMINE 30 MG/1 ML VIAL IVPUSH ONE (21:52)
[2022-12-04] MEDS ORDERED: HYDROmorphone HCL CARPU-JECT 1 MG/1 ML DISP.SYRIN IM ONE (21:53)
[2022-12-04] MEDS ORDERED: HYDROmorphone HCl 2 MG/ML VIAL ONE ×2 (21:55→22:50)
[2022-12-04] MEDS ORDERED: KETOROLAC TROMETHAMINE 30 MG/1 ML VIAL ONE (21:55)
[2022-12-04] MEDS ORDERED: LIDOCAINE 5% TOPICAL PATCH TP ONE (21:56)
[2022-12-04 21:57] VITALS: PULSE 78; RESP 17; TEMP 98.7; BMI 38.2
[2022-12-04] MEDS ORDERED: LIDOCAINE PATCH REMOVAL MC SCH (22:00)
[2022-12-04] MEDS ORDERED: LIDOCAINE 5% TOPICAL PATCH ONE (22:30)
[2022-12-04] MEDS ORDERED: HYDROmorphone HCL CARPU-JECT 2 MG/1 ML DISP.SYRIN IM ONE (22:38)
[2022-12-04 23:47] VITALS: BP 140/70
== END 2022-12-04 23:47 | disposition home or self-care (01) ==
LOC: FER 21:41
PROC: 3E023GC Introduction of Other Therapeutic Substance into Muscle, Percutaneous Approach (ICD-10-PCS; principal; 2022-12-04)
PROC: 3E023GC Introduction of Other Therapeutic Substance into Muscle, Percutaneous Approach (ICD-10-PCS; 2022-12-04)
PROC: 3E023GC Introduction of Other Therapeutic Substance into Muscle, Percutaneous Approach (ICD-10-PCS; 2022-12-04)
PROC: 3E0333Z Introduction of Anti-inflammatory into Peripheral Vein, Percutaneous Approach (ICD-10-PCS; 2022-12-04)
DX: G43.909 Migraine, unspecified, not intractable, without status migrainosus (principal); M54.2 Cervicalgia
CPT/HCPCS: 0241U-QW; 99284-25

== ENCOUNTER 2023-02-02 20:42 | Emergency (ER) | payer OTHER, BC ==
[2023-02-02] MEDS ORDERED: HYDROmorphone HCl 2 MG/ML VIAL IVPUSH STA ×2 (20:59→22:08)
[2023-02-02] MEDS ORDERED: HYDROmorphone HCl 2 MG/ML VIAL ONE ×3 (21:03→22:13)
[2023-02-02 21:17] VITALS: BP 126/62; PULSE 76; RESP 18; TEMP 98.7; BMI 38.5
[2023-02-02] MEDS ORDERED: HYDROmorphone HCL/PF 1 MG/ML VIAL ONE (22:11)
== END 2023-02-02 22:26 | disposition home or self-care (01) ==
LOC: FER 20:42
PROC: 3E033GC Introduction of Other Therapeutic Substance into Peripheral Vein, Percutaneous Approach (ICD-10-PCS; principal; 2023-02-02)
PROC: 3E033GC Introduction of Other Therapeutic Substance into Peripheral Vein, Percutaneous Approach (ICD-10-PCS; 2023-02-02)
PROC: 3E033GC Introduction of Other Therapeutic Substance into Peripheral Vein, Percutaneous Approach (ICD-10-PCS; 2023-02-02)
DX: G43.909 Migraine, unspecified, not intractable, without status migrainosus (principal)
CPT/HCPCS: 99284-25

== ENCOUNTER 2023-03-16 20:41 | Emergency (ER) | payer OTHER, BC ==
[2023-03-16 20:56] VITALS: BP 155/75; PULSE 71; RESP 18; TEMP 97.9; BMI 38.5
[2023-03-16] MEDS ORDERED: HYDROmorphone HCl 2 MG/ML VIAL IVPUSH STA ×2 (20:59→22:11)
[2023-03-16] MEDS ORDERED: HYDROmorphone HCl 2 MG/ML VIAL ONE ×2 (21:03→22:13)
[2023-03-16] MEDS ORDERED: HYDROmorphone HCL/PF 1 MG/ML VIAL ONE (22:13)
== END 2023-03-16 22:45 | disposition home or self-care (01) ==
LOC: FER 20:41
PROC: 3E033GC Introduction of Other Therapeutic Substance into Peripheral Vein, Percutaneous Approach (ICD-10-PCS; principal; 2023-03-16)
PROC: 3E033GC Introduction of Other Therapeutic Substance into Peripheral Vein, Percutaneous Approach (ICD-10-PCS; 2023-03-16)
PROC: 3E033GC Introduction of Other Therapeutic Substance into Peripheral Vein, Percutaneous Approach (ICD-10-PCS; 2023-03-16)
DX: G43.909 Migraine, unspecified, not intractable, without status migrainosus (principal)
CPT/HCPCS: 99284-25

== ENCOUNTER 2023-07-09 22:11 | Emergency (ER) | payer OTHER, BC ==
[2023-07-09 22:17] VITALS: BP 155/78; PULSE 80; RESP 19; TEMP 99.3; BMI 37.2
[2023-07-09] MEDS ORDERED: HYDROmorphone HCl 2 MG/ML VIAL IVPB STA (22:17)
[2023-07-09] MEDS ORDERED: HYDROmorphone HCl 2 MG/ML VIAL ONE ×2 (22:24→23:13)
[2023-07-09] MEDS ORDERED: HYDROmorphone HCl 2 MG/ML VIAL IVPUSH STA (23:10)
== END 2023-07-09 23:57 | disposition home or self-care (01) ==
LOC: FER 22:11
PROC: 3E033GC Introduction of Other Therapeutic Substance into Peripheral Vein, Percutaneous Approach (ICD-10-PCS; principal; 2023-07-09)
PROC: 3E033GC Introduction of Other Therapeutic Substance into Peripheral Vein, Percutaneous Approach (ICD-10-PCS; 2023-07-09)
PROC: 3E033GC Introduction of Other Therapeutic Substance into Peripheral Vein, Percutaneous Approach (ICD-10-PCS; 2023-07-09)
DX: G43.909 Migraine, unspecified, not intractable, without status migrainosus (principal); H53.149 Visual discomfort, unspecified; F40.298 Other specified phobia
CPT/HCPCS: 99284-25

== ENCOUNTER 2023-07-12 18:47 | Emergency (ER) | payer OTHER, BC ==
[2023-07-12 19:02] VITALS: BP 148/81; PULSE 97; RESP 20; TEMP 99.2; BMI 35.2
[2023-07-12] MEDS ORDERED: HYDROmorphone HCl 2 MG/ML VIAL IVPB ONE (19:44)
[2023-07-12] MEDS ORDERED: HYDROmorphone HCl 2 MG/ML VIAL ONE (19:58)
== END 2023-07-12 21:23 | disposition home or self-care (01) ==
LOC: FER 18:47
PROC: 3E033NZ Introduction of Analgesics, Hypnotics, Sedatives into Peripheral Vein, Percutaneous Approach (ICD-10-PCS; principal; 2023-07-12)
PROC: 3E033GC Introduction of Other Therapeutic Substance into Peripheral Vein, Percutaneous Approach (ICD-10-PCS; 2023-07-12)
DX: M54.2 Cervicalgia (principal); G43.909 Migraine, unspecified, not intractable, without status migrainosus
CPT/HCPCS: 99284-25

== ENCOUNTER 2023-07-13 03:10 | Emergency (ER) | payer OTHER, BC ==
[2023-07-13 03:19] VITALS: BP 112/68; PULSE 78; RESP 18; TEMP 99.5; BMI 35.2
[2023-07-13] MEDS ORDERED: diazePAM 5 MG TABLET PO ONE (03:28)
[2023-07-13] MEDS ORDERED: diazePAM 5 MG TABLET ONE (03:31)
[2023-07-13] MEDS ORDERED: KETOROLAC TROMETHAMINE 30 MG/1 ML VIAL IVPUSH ONE (05:54)
[2023-07-13] MEDS ORDERED: KETOROLAC TROMETHAMINE 30 MG/1 ML VIAL ONE (06:11)
[2023-07-13] MEDS ORDERED: HYDROmorphone HCl 2 MG/ML VIAL IVPUSH ONE (06:44)
[2023-07-13] MEDS ORDERED: SODIUM CHLORIDE 500 ML IV STA (06:45)
[2023-07-13] MEDS ORDERED: HYDROmorphone HCl 2 MG/ML VIAL ONE (06:50)
[2023-07-13 08:13] LABS: HEMOGLOBIN 14.9 G/dL (11.7-16.9); MCH 32.4 pg (25.7-33.7); MCHC 33.8 g/dl (32.0-35.9); MEAN CELL VOLUME 96.1 fl (80-96); MEAN PLT VOLUME 9.2 fl (7.5-11.1); PLATELET COUNT 127.1 10^3/uL (134-434); RBC 4.58 10^6/uL (4.00-5.60); RDW 14.7 % (11.9-15.9); WHITE BLOOD COUNT 10.8 10^3/uL (4.0-10.8)
[2023-07-13 08:50] LABS: ALBUMIN 4.3 g/dl (3.4-5.0); BLOOD UREA NITROGEN 18.5 mg/dl (7-18); CALCIUM 9.2 mg/dl (8.5-10.1); CREATININE 1.1 mg/dl (0.6-1.3); POTASSIUM 4.2 mmol/L (3.5-5.1); SGOT/AST 15.9 U/L (15-37); SGPT/ALT 12.5 U/L (7-52); TOT PROT 6.5 g/dl (6.4-8.2)
[2023-07-13 09:05] LABS: PLATELET ESTIMATE SLT DECREASE
[2023-07-13 12:02] LABS: BILIRUBIN,TOTAL 1.5 mg/dL (0.2-1)
== END 2023-07-13 09:57 | disposition home or self-care (01) ==
LOC: FER 03:10
PROC: 3E0333Z Introduction of Anti-inflammatory into Peripheral Vein, Percutaneous Approach (ICD-10-PCS; principal; 2023-07-13)
PROC: 3E033GC Introduction of Other Therapeutic Substance into Peripheral Vein, Percutaneous Approach (ICD-10-PCS; 2023-07-13)
PROC: 3E0337Z Introduction of Electrolytic and Water Balance Substance into Peripheral Vein, Percutaneous Approach (ICD-10-PCS; 2023-07-13)
DX: M54.2 Cervicalgia (principal); S16.1XXA Strain of muscle, fascia and tendon at neck level, initial encounter; M62.838 Other muscle spasm; X58.XXXA Exposure to other specified factors, initial encounter
CPT/HCPCS: 36415; 70450-TC; 72125-TC; 80053; 85025; 99284-25

== ENCOUNTER 2023-07-13 21:19 | Emergency (ER) | payer OTHER, BC ==
[2023-07-13] MEDS ORDERED: KETOROLAC TROMETHAMINE 60 MG/2 ML VIAL IM ONE (21:34)
[2023-07-13] MEDS ORDERED: HYDROmorphone HCl 2 MG/ML VIAL IVPUSH STA (21:34)
[2023-07-13] MEDS ORDERED: diazePAM CARPU-JECT 10 MG/2 ML DISP.SYRIN IVPUSH ONE (21:35)
[2023-07-13] MEDS ORDERED: HYDROmorphone HCl 2 MG/ML VIAL ONE (21:56)
[2023-07-13] MEDS ORDERED: KETOROLAC TROMETHAMINE 60 MG/2 ML VIAL ONE (21:56)
[2023-07-13] MEDS ORDERED: diazePAM CARPU-JECT 10 MG/2 ML DISP.SYRIN ONE (21:57)
[2023-07-13 22:30] VITALS: TEMP 99.2; BMI 35.2
[2023-07-13 23:11] VITALS: PULSE 75; RESP 16
[2023-07-13 23:17] VITALS: BP 123/60
== END 2023-07-14 00:48 | disposition home or self-care (01) ==
LOC: FER 21:19
PROC: 3E033GC Introduction of Other Therapeutic Substance into Peripheral Vein, Percutaneous Approach (ICD-10-PCS; principal; 2023-07-13)
PROC: 3E033GC Introduction of Other Therapeutic Substance into Peripheral Vein, Percutaneous Approach (ICD-10-PCS; 2023-07-13)
PROC: 3E0233Z Introduction of Anti-inflammatory into Muscle, Percutaneous Approach (ICD-10-PCS; 2023-07-13)
DX: M54.2 Cervicalgia (principal); G89.29 Other chronic pain; G43.909 Migraine, unspecified, not intractable, without status migrainosus
CPT/HCPCS: 99284-25

== ENCOUNTER 2023-10-26 20:07 | Emergency (ER) | payer OTHER, BC ==
[2023-10-26 20:37] VITALS: BP 163/91; PULSE 67; RESP 18; TEMP 98.8; BMI 35.3
[2023-10-26] MEDS ORDERED: HYDROmorphone HCl 2 MG/ML VIAL IVPB ONE ×2 (20:53→22:20)
[2023-10-26] MEDS ORDERED: HYDROmorphone HCl 2 MG/ML VIAL ONE ×2 (21:01→22:24)
== END 2023-10-26 23:03 | disposition home or self-care (01) ==
LOC: FER 20:07
PROC: 3E033GC Introduction of Other Therapeutic Substance into Peripheral Vein, Percutaneous Approach (ICD-10-PCS; principal; 2023-10-26)
PROC: 3E033GC Introduction of Other Therapeutic Substance into Peripheral Vein, Percutaneous Approach (ICD-10-PCS; 2023-10-26)
PROC: 3E033GC Introduction of Other Therapeutic Substance into Peripheral Vein, Percutaneous Approach (ICD-10-PCS; 2023-10-26)
DX: R51.9 Headache, unspecified (principal); M54.2 Cervicalgia; G43.909 Migraine, unspecified, not intractable, without status migrainosus
CPT/HCPCS: 99284-25

== ENCOUNTER 2023-12-28 21:04 | Emergency (ER) | payer OTHER, BC ==
[2023-12-28 21:14] VITALS: BP 152/73; PULSE 76; RESP 18; TEMP 98.7; BMI 35.4
[2023-12-28] MEDS ORDERED: HYDROmorphone HCl 2 MG/ML VIAL ONE ×2 (21:29→22:29)
[2023-12-28] MEDS: HYDROmorphone HCl 2 MG/ML VIAL IVPUSH STA ×2 (21:33→22:36)
[2023-12-28] MEDS ORDERED: HYDROmorphone HCL/PF 1 MG/ML VIAL ONE (22:29)
== END 2023-12-28 22:38 | disposition home or self-care (01) ==
LOC: FER 21:04
PROC: 3E033GC Introduction of Other Therapeutic Substance into Peripheral Vein, Percutaneous Approach (ICD-10-PCS; principal; 2023-12-28)
PROC: 3E033GC Introduction of Other Therapeutic Substance into Peripheral Vein, Percutaneous Approach (ICD-10-PCS; 2023-12-28)
PROC: 3E033GC Introduction of Other Therapeutic Substance into Peripheral Vein, Percutaneous Approach (ICD-10-PCS; 2023-12-28)
DX: G43.909 Migraine, unspecified, not intractable, without status migrainosus (principal); G89.29 Other chronic pain
CPT/HCPCS: 99284-25

== ENCOUNTER 2024-03-14 19:35 | Emergency (ER) | payer OTHER, BC ==
[2024-03-14 19:44] VITALS: BP 101/50; PULSE 80; RESP 18; TEMP 98.9; BMI 35.4
[2024-03-14] MEDS ORDERED: HYDROmorphone HCl 2 MG/ML VIAL ONE ×2 (19:54→21:16)
[2024-03-14] MEDS: HYDROmorphone HCl 2 MG/ML VIAL IVPUSH STA ×2 (19:58→21:18)
== END 2024-03-14 21:53 | disposition home or self-care (01) ==
LOC: FER 19:35
PROC: 3E030GC Introduction of Other Therapeutic Substance into Peripheral Vein, Open Approach (ICD-10-PCS; principal; 2024-03-14)
PROC: 3E030GC Introduction of Other Therapeutic Substance into Peripheral Vein, Open Approach (ICD-10-PCS; 2024-03-14)
PROC: 3E030GC Introduction of Other Therapeutic Substance into Peripheral Vein, Open Approach (ICD-10-PCS; 2024-03-14)
DX: G43.909 Migraine, unspecified, not intractable, without status migrainosus (principal); G89.29 Other chronic pain
CPT/HCPCS: 99284-25

== ENCOUNTER 2024-04-24 20:54 | Emergency (ER) | payer OTHER, BC ==
[2024-04-24 21:04] VITALS: TEMP 98; BMI 33.0
[2024-04-24] MEDS ORDERED: HYDROmorphone HCl 2 MG/ML VIAL ONE ×2 (21:35→22:19)
[2024-04-24] MEDS: HYDROmorphone HCl 2 MG/ML VIAL IM STA (21:45)
[2024-04-24] MEDS ORDERED: LIDOCAINE PATCH REMOVAL MC SCH (22:00)
[2024-04-24] MEDS ORDERED: HYDROmorphone HCL/PF 1 MG/ML VIAL ONE (22:18)
[2024-04-24] MEDS: HYDROmorphone HCl 2 MG/ML VIAL IVPB STA (22:25)
[2024-04-24] MEDS ORDERED: LIDOCAINE 5% TOPICAL PATCH ONE (22:26)
[2024-04-24] MEDS: LIDOCAINE 5% TOPICAL PATCH TP ONE (22:41)
[2024-04-24 22:48] VITALS: BP 137/102; PULSE 82; RESP 16
== END 2024-04-24 22:49 | disposition home or self-care (01) ==
LOC: FER 20:54
PROC: 3E033NZ Introduction of Analgesics, Hypnotics, Sedatives into Peripheral Vein, Percutaneous Approach (ICD-10-PCS; principal; 2024-04-24)
PROC: 3E023NZ Introduction of Analgesics, Hypnotics, Sedatives into Muscle, Percutaneous Approach (ICD-10-PCS; 2024-04-24)
PROC: 3E023GC Introduction of Other Therapeutic Substance into Muscle, Percutaneous Approach (ICD-10-PCS; 2024-04-24)
DX: G43.909 Migraine, unspecified, not intractable, without status migrainosus (principal)
CPT/HCPCS: 99284-25

== ENCOUNTER 2024-06-25 22:23 | Emergency (ER) | payer OTHER, BC ==
[2024-06-25 22:40] VITALS: RESP 18; TEMP 98.1; BMI 34.5
[2024-06-25] MEDS ORDERED: HYDROmorphone HCl 2 MG/ML VIAL ONE ×2 (22:43→23:23)
[2024-06-25] MEDS: HYDROmorphone HCl 2 MG/ML VIAL IVPB STA ×2 (22:51→23:26)
[2024-06-25] MEDS ORDERED: HYDROmorphone HCL/PF 1 MG/ML VIAL ONE (23:22)
[2024-06-25 23:46] VITALS: BP 117/56; PULSE 76
== END 2024-06-25 23:57 | disposition home or self-care (01) ==
LOC: FER 22:23
PROC: 3E033NZ Introduction of Analgesics, Hypnotics, Sedatives into Peripheral Vein, Percutaneous Approach (ICD-10-PCS; principal; 2024-06-25)
PROC: 3E033NZ Introduction of Analgesics, Hypnotics, Sedatives into Peripheral Vein, Percutaneous Approach (ICD-10-PCS; 2024-06-25)
PROC: 3E023GC Introduction of Other Therapeutic Substance into Muscle, Percutaneous Approach (ICD-10-PCS; 2024-06-25)
DX: G43.909 Migraine, unspecified, not intractable, without status migrainosus (principal)
CPT/HCPCS: 99284-25

== ENCOUNTER 2024-09-03 21:34 | Emergency (ER) | payer OTHER, BC ==
[2024-09-03 21:49] VITALS: BP 130/72; PULSE 65; RESP 18; TEMP 98.2; BMI 34.9
[2024-09-03] MEDS ORDERED: HYDROmorphone HCl 2 MG/ML VIAL ONE ×2 (22:13→23:25)
[2024-09-03] MEDS: HYDROmorphone HCl 2 MG/ML VIAL IVPB STA (22:21)
[2024-09-03] MEDS: HYDROmorphone HCl 2 MG/ML VIAL IVPUSH STA (23:36)
== END 2024-09-03 23:42 | disposition home or self-care (01) ==
LOC: FER 21:34
PROC: 3E033GC Introduction of Other Therapeutic Substance into Peripheral Vein, Percutaneous Approach (ICD-10-PCS; principal; 2024-09-03)
PROC: 3E033NZ Introduction of Analgesics, Hypnotics, Sedatives into Peripheral Vein, Percutaneous Approach (ICD-10-PCS; 2024-09-03)
PROC: 3E033NZ Introduction of Analgesics, Hypnotics, Sedatives into Peripheral Vein, Percutaneous Approach (ICD-10-PCS; 2024-09-03)
DX: G43.909 Migraine, unspecified, not intractable, without status migrainosus (principal); M54.50 Low back pain, unspecified
CPT/HCPCS: 72100-TC-FY; 96374; 96375; 96376; 99284-25